=== PATIENT | female | born 1995 | race Caucasian/White ===

== ENCOUNTER 2019-02-27 16:08 | Inpatient (IN) ==
[2019-02-27] MEDS ORDERED: NICOTINE POLACRILEX 2 MG GUM MT PRN (16:20)
[2019-02-27] MEDS ORDERED: NICOTINE 21 MG/24 HR TDSY TD STA (16:20)
[2019-02-27 16:41] LABS: Pregnancy Test, Urine Negative (Negative)
[2019-02-27 16:43] LABS: Appearance Urine Cloudy (Clear); Bacteria Urine Automated 1+ (Negative); Bilirubin Urine Negative (Negative); Blood Urine Negative (Negative); Color Urine Yellow; Epithelial Cell Urine Auto >30 /lpf (0-5); Glucose Urine UA Negative (Negative); Ketones Urine Trace (Negative); Leukocyte Esterase Urine 3+ (Negative); Nitrite Urine Negative (Negative); Protein Urine Negative (Negative); RBC Urine Automated 0-4 /hpf (0-4); Specific Gravity Urine 1.021 (1.000-1.030); Urobilinogen Urine Negative (Negative); pH Urine 5.5 (4.5-7.5)
[2019-02-27 17:02] LABS: Amphetamines+Metham, Urine Neg (Neg); Barbiturates, Urine Neg (Neg); Benzodiazepine, Urine Neg (Neg); Cocaine, Urine Neg (Neg); MDMA (Ecstacy), Urine Neg (Neg); Methadone, Urine Neg (Neg); Opiate, Urine Neg (Neg); Phencyclidine, Urine Neg (Neg)
[2019-02-27 17:07] LABS: Basophils # (auto) 0.02 K/uL (0-0.2); Basophils % (auto) 0.2 %; Eosinophils # (auto) 0.07 K/uL (0-0.5); Eosinophils % (auto) 0.8 %; Hemoglobin 15.6 g/dL (12.0-16.0); Immature Granulocytes # (auto) 0.01 K/uL (0.00-0.02); Immature Granulocytes % (auto) 0.1 %; Lymphocytes # (auto) 2.46 K/uL (1.2-3.4); Lymphocytes % (auto) 29.6 %; Mean Corpuscular Hgb Conc 34.7 g/dL (32-36); Mean Corpuscular Volume 93.6 fL (80-100); Monocytes # (auto) 0.83 K/uL (0.11-0.59); Neutrophils # (auto) 4.93 K/uL (1.4-6.5); Neutrophils % (auto) 59.3 %; Platelet Count 218 K/uL (130-400); RDW Coefficient of Variation 12.2 % (11.5-14.5); RDW Standard Deviation 41.4 fL (36.4-46.3); Red Blood Count 4.81 M/uL (4.2-5.4); White Blood Count 8.32 K/uL (4.8-10.8)
[2019-02-27] MEDS ORDERED: NITROFURANTOIN MONOHYDRATE 100 MG CAP PO STA (17:09)
[2019-02-27] MEDS ORDERED: FLUCONAZOLE SUSP 100 MG/10 ML UDP PO STA (17:21)
[2019-02-27 17:26] LABS: BUN Creatinine Ratio 14.7 (10-20); Calcium 8.9 mg/dl (8.5-10.1); Creatinine Clr Calc Pharmacy 108.1 ml/min; Est GFR (African American) 131.1; Est GFR (Non-African American) 113.1; Potassium 3.6 mmol/L (3.5-5.1)
[2019-02-27] MEDS ORDERED: FLUCONAZOLE 50 MG TAB PO STA (17:26)
[2019-02-27 17:37] LABS: Albumin Globulin Ratio 1.1 (0.9-2); Bilirubin,Total 0.5 mg/dl (0.2-1); Globulin 3.8 gm/dl (2.5-4.0); Total Protein 7.8 gm/dl (6.4-8.2)
[2019-02-27] MEDS ORDERED: FLUCONAZOLE SUSP 40 MG/ML 35 ML PO ONE (17:45)
[2019-02-27 17:47] LABS: Salicylate < 1.7 mg/dl (2.8-20)
[2019-02-27 17:48] LABS: Acetaminophen < 2 ug/ml (10-30)
[2019-02-27] MEDS ORDERED: cloNIDine HCl 0.1 MG TAB PO ONE (17:48)
[2019-02-27] MEDS ORDERED: POTASSIUM CHLORIDE 20 MEQ TABCR PO STA (17:48)
--- NOTE | 2019-02-27 17:48 | Emergency Department Note ---
Entered by Gladis Rossi acting as a scribe for Arsalan Dalal MD History of Present Illness General Chief complaint: Mental Health Evaluation Stated complaint: 302, BROUGHT IN BY POLICE Time Seen by Provider: 02/27/19 16:15 Source: patient and other (mental health correctional counselor/case manager) History of Present Illness Onset (ago): hour(s) (this morning) Location: head (suicidal ideations) Pain Consistency: + other (episode) Relieved By: + none Associated symptoms: + denies other symptoms and + other (suicidal ideations with a plan) The patient is a 24 year old F who presents to the Emergency Room with complaints of an episode of suicidal ideations that occurred this morning. The majority of the HPI was provided by the mental health correctional counselor/case manager. She states t hat the patient currently lives at home with her mother. She notes that the patient was on the phone with her mother and was saying that she was thinking of ways to kill herself. She adds that the patient stated that she was going to stab herself in the stomach. The correctional counselor/case manager notes that the patient then hang up the phone call with her mother. The correctional counselor/case manager states that the mother tried to call the patient back but called the neighbors to check up on the patient when the patient did not milk pickup driver the phone. She notes that the neighbors could not reach the patient so the patients mother called the fur trapper. The correctional counselor/case manager states that the patient was admitted to the [facility] last month on a 302 warrant. The patient notes that she took all of her medication correctly today. The patient adds that she ate tonight. She denies drinking alcohol and using drugs. She also denies any other symptoms. Home Medications Home Medications Medication Instructions Recorded Confirmed Type citalopram 20 mg PO QAM 02/27/19 02/27/19 History clonidine HCl 0.05 mg PO AMHS 02/27/19 02/27/19 History Allergies Allergy/AdvReac Type Severity Reaction Status Date / Time No Known Allergies Allergy Verified 02/27/19 16:37 Past Med/Surg History Medical History Borderline personality disorder (Chronic) Cannabis abuse (Chronic) Nicotine dependence, cigarettes, uncomplicated (Chronic) Self-inflicted laceration of wrist Family History Other No significant family history Social History Preferred Language: Russian Communication Ability: Effective Crematory Operator Required: No Beliefs That Will Affect Care: None Feels Safe at Home: Yes Smoking Status: Current every day smoker Tobacco Type: cigarettes Review of Systems See HPI for pertinent positives & negatives. and A total of 10 systems reviewed and were otherwise negative Physical Exam Vital Signs Vital Signs - 24 hr 02/27/19 16:10 02/27/19 19:47 02/27/19 20:31 Temperature 36.8 C 37.1 C Temperature Source Oral Oral Sepsis Recent Fever Within 48 Hours No Sepsis Action Taken by Nursing No Action Required Pulse Rate 55 L Pulse Rate [Left Finger] 56 L 56 L Pulse Rhythm Regular Pulse Strength Normal Respiratory Rate 20 18 16 Respiratory Effort / Characteristics Non-Labored Spontaneous Non-Labored Non-Labored Respiratory Depth Normal Normal Normal Respiratory Pattern Regular Regular Blood Pressure 123/85 Blood Pressure [Left Arm] 116/65 116/65 Blood Pressure Mean 97 Blood Pressure Mean [Left Arm] 82 82 Blood Pressure Position [Left Arm] Sitting Pulse Oximetry 99 98 98 Oxygen Delivery Method Room Air Room Air Room Air GENERAL: Awake, alert, well-appearing, in no acute distress HENT: Normocephalic, atraumatic. Oropharynx unremarkable. EYES: Normal conjunctiva. Sclera non-icteric. NECK: Supple. No nuchal rigidity. FROM. No JVD. RESPIRATORY: Clear to auscultation. CARDIAC: Regular rate, normal rhythm. Extremities warm and well perfused. Pulses equal. ABDOMEN: Soft, non-distended. No tenderness to palpation. No rebound or guarding. No masses. RECTAL: Deferred. MUSCULOSKELETAL: Chest examination reveals no tenderness. The back is symm etrical on inspection without obvious abnormality. There is no CVA tenderness to palpation. No joint edema. LOWER EXTREMITIES: Calves are equal size bilaterally and non-tender. No edema. No discoloration. NEURO: Normal sensorium. No sensory or motor deficits noted. SKIN: No rash or jaundice noted. Course 1614: The patient was evaluated in room A7. A complete history and physical exam was performed. 1829: The patient has been medically cleared and is being referred to [facility]. 1944: The patient has been admitted to [facility]. I reviewed the patient's case with Dr. So Gonzalez. She will evaluate the patient for further management. Consultations Consultation #1: The patient has been admitted to [facility]. I reviewed the patient's case with Dr. So Gonzalez. She will evaluate the patient for further management. Time: 19:45 Administered Medications Clonidine HCl (Catapres) 0.05 mg PO BID PRAVEEN Stop: 03/29/19 20:59 Last Admin: 02/27/19 21:41 Dose: 0.05 mg Documented by: [id number] Miscellaneous (Remove Nicoderm Patch) 1 ea N/A HS PRAVEEN Stop: 03/29/19 20:59 Last Admin: 02/27/19 21:42 Dose: Not Given Documented by: [id number] Nicotine Polacrilex (Nicorette 2mg) 1 piece MT PRN PRN PRN Reason: Agitation Stop: 03/29/19 16:19 Last Admin: 02/27/19 17:41 Dose: 1 piece Documented by: [id number] Discontinued Medications Clonidine HCl (Catapres) 0.05 mg PO HS ONE Stop: 02/27/19 17:49 Last Admin: 02/27/19 21:10 Dose: Not Given Documented by: [id number] Fluconazole (Difulcan) 150 mg PO NOW ONE Stop: 02/27/19 17:46 Last Admin: 02/27/19 17:41 Dose: 150 mg Documented by: [id number] Nicotine (Nicoderm Cq) 21 mg TD NOW STA Stop: 02/27/19 16:21 Last Admin: 02/27/19 21:10 Dose: Not Given Documented by: [id number] Nitrofurantoin Macrocrystals (Macrobid) 100 mg PO NOW STA Stop: 02/27/19 17:10 Last Admin: 02/27/19 17:41 Dose: 100 mg Documented by: [id number] Potassium Chloride (Klor-Con M20) 40 meq PO NOW STA Stop: 02/27/19 17:49 Last Admin: 02/27/19 17:58 Dose: 40 meq Documented by: [id number] Medical Decision Making Differential Diagnosis Differential diagnosis includes: mood disorder, infection, hypoglycemia, electrolyte abnormalities, cardiac sources, intracerebral event, toxicologic, neurologic, as well as others were entertained. Medical Records Attestation: I reviewed the patient's medical records. Home Medications Current Medication List: was personally reviewed by me Laboratory Data Attestation: I reviewed the patient's lab results. Result diagrams: 02/27/19 16:53 02/27/19 16:53 Lab Results 02/27/19 02/27/1902/27/19 Range/Units 16:10 16:10 16:10 WBC (4.8-10.8) K/uL RBC (4.2-5.4) M/uL Hgb (12.0-16.0) g/dL Hct (37-47) % MCV (80-100) fL MCH (25-34) pg MCHC (32-36) g/dL RDW Std Deviation (36.4-46.3) fL RDW Coeff of Gui (11.5-14.5) % Plt Count (130-400) K/uL MPV (7.4-10.4) fL Immature Gran % (Auto) % Neut % (Auto) % Lymph % (Auto) % [place] % (Auto) % Eos % (Auto) % Baso % (Auto) % Immature Gran # (Auto) (0.00-0.02) K/uL Neut # (Auto) (1.4-6.5) K/uL Lymph # (Auto) (1.2-3.4) K/uL [place] # (Auto) (0.11-0.59) K/uL Eos # (Auto) (0-0.5) K/uL Baso # (Auto) (0-0.2) K/uL Sodium (136-145) mmol/L Potassium (3.5-5.1) mmol/L Chloride (98-107) mmol/L Carbon Dioxide (21-32) mmol/L Anion Gap (3-11) BUN (7-18) mg/dl Creatinine (0.6-1.2) mg/dl Est Cr Clr Drug Dosing ml/min Est GFR ( Amer) Est GFR (Non-Af Amer) BUN/Creatinine Ratio (10-20) Glucose (70-99) mg/dl Calcium (8.5-10.1) mg/dl Total Bilirubin (0.2-1) mg/dl AST (15-37) U/L ALT (12-78) U/L Alkaline Phosphatase (45-117) U/L Total Protein (6.4-8.2) gm/dl Albumin (3.4-5.0) gm/dl Globulin (2.5-4.0) gm/dl Albumin/Globulin Ratio (0.9-2) TSH (0.300-4.500) uIu/ml Urine Color Yellow Urine Appearance Cloudy A (Clear) Urine pH 5.5 (4.5-7.5) Ur Specific [place] 1.021 (1.000-1.030) Urine Protein Negative (Negative) Urine Glucose (UA) Negative (Negative) Urine Ketones Trace H (Negative) Urine Blood Negative (Negative) Urine Nitrite Negative (Negative) Urine Bilirubin Negative (Negative) Urine Urobilinogen Negative (Negative) Ur Leukocyte Esterase 3+ H (Negative) Urine WBC (Auto) 10-30 H (0-5) /hpf Urine RBC (Auto) 0-4 (0-4) /hpf U Hyaline Cast (Auto) 1-5 (0-5) /lpf U Epithel Cells (Auto) >30 H (0-5) /lpf Urine Bacteria (Auto) 1+ H (Negative) Urine Test Negative (Negative) Salicylates (2.8-20) mg/dl Urine Opiates Screen Neg (Neg) Ur Methadone, Qual Neg (Neg) Acetaminophen (10-30) ug/ml Urine Barbiturates Neg (Neg) Ur Phencyclidine (PCP) Neg (Neg) U Amphetamin/Meth Scrn Neg (Neg) MDMA (Ecstasy) Screen Neg (Neg) U Benzodiazepines Scrn Neg (Neg) Ur Cocaine Metabolite Neg (Neg) U Marijuana (THC) Screen Pos H (Neg) Ethyl Alcohol mg/dL (0-3) mg/dl 02/27/19 02/27/19 02/27/19 Range/Units 16:53 16:53 16:53 WBC 8.32 (4.8-10.8) K/uL RBC 4.81 (4.2-5.4) M/uL Hgb 15.6 (12.0-16.0) g/dL Hct 45.0 (37-47) % MCV 93.6 (80-100) fL MCH 32.4 (25-34) pg MCHC 34.7 (32-36) g/dL RDW Std Deviation 41.4 (36.4-46.3) fL RDW Coeff of Gui 12.2 (11.5-14.5) % Plt Count 218 (130-400) K/uL MPV 10.0 (7.4-10.4) fL Immature Gran % (Auto) 0.1 % Neut % (Auto) 59.3 % Lymph % (Auto) 29.6 % [place] % (Auto) 10.0 % Eos % (Auto) 0.8 % Baso % (Auto) 0.2 % Immature Gran # (Auto) 0.01 (0.00-0.02) K/uL Neut # (Auto) 4.93 (1.4-6.5) K/uL Lymph # (Auto) 2.46 (1.2-3.4) K/uL [place] # (Auto) 0.83 H (0.11-0.59) K/uL Eos # (Auto) 0.07 (0-0.5) K/uL Baso # (Auto) 0.02 (0-0.2) K/uL Sodium 139 (136-145) mmol/L Potassium 3.6 (3.5-5.1) mmol/L Chloride 105 (98-107) mmol/L Carbon Dioxide 27 (21-32) mmol/L Anion Gap 7.0 (3-11) BUN 11 (7-18) mg/dl Creatinine 0.75 (0.6-1.2) mg/dl Est Cr Clr Drug Dosing 108.1 ml/min Est GFR ( Amer) 131.1 Est GFR (Non-Af Amer) 113.1 BUN/Creatinine Ratio 14.7 (10-20) Glucose 76 (70-99) mg/dl Calcium 8.9 (8.5-10.1) mg/dl Total Bilirubin 0.5 (0.2-1) mg/dl AST 16 (15-37) U/L ALT 18 (12-78) U/L Alkaline Phosphatase 74 (45-117) U/L Total Protein 7.8 (6.4-8.2) gm/dl Albumin 4.0 (3.4-5.0) gm/dl Globulin 3.8 (2.5-4.0) gm/dl Albumin/Globulin Ratio 1.1 (0.9-2) TSH 2.200 (0.300-4.500) uIu/ml Urine Color Urine Appearance (Clear) Urine pH (4.5-7.5) Ur Specific [place] (1.000-1.030) Urine Protein (Negative) Urine Glucose (UA) (Negative) Urine Ketones (Negative) Urine Blood (Negative) Urine Nitrite (Negative) Urine Bilirubin (Negative) Urine Urobilinogen (Negative) Ur Leukocyte Esterase (Negative) Urine WBC (Auto) (0-5) /hpf Urine RBC (Auto) (0-4) /hpf U Hyaline Cast (Auto) (0-5) /lpf U Epithel Cells (Auto) (0-5) /lpf Urine Bacteria (Auto) (Negative) Urine Test (Negative) Salicylates < 1.7 L (2.8-20) mg/dl Urine Opiates Screen (Neg) Ur Methadone, Qual (Neg) Acetaminophen < 2 L (10-30) ug/ml Urine Barbiturates (Neg) Ur Phencyclidine (PCP) (Neg) U Amphetamin/Meth Scrn (Neg) MDMA (Ecstasy) Screen (Neg) U Benzodiazepines Scrn (Neg) Ur Cocaine Metabolite (Neg) U Marijuana (THC) Screen (Neg) Ethyl Alcohol mg/dL (0-3) mg/dl 02/27/19 Range/Units 16:53 WBC (4.8-10.8) K/uL RBC (4.2-5.4) M/uL Hgb (12.0-16.0) g/dL Hct (37-47) % MCV (80-100) fL MCH (25-34) pg MCHC (32-36) g/dL RDW Std Deviation (36.4-46.3) fL RDW Coeff of Gui (11.5-14.5) % Plt Count (130-400) K/uL MPV (7.4-10.4) fL Immature Gran % (Auto) % Neut % (Auto) % Lymph % (Auto) % [place] % (Auto) % Eos % (Auto) % Baso % (Auto) % Immature Gran # (Auto) (0.00-0.02) K/uL Neut # (Auto) (1.4-6.5) K/uL Lymph # (Auto) (1.2-3.4) K/uL [place] # (Auto) (0.11-0.59) K/uL Eos # (Auto) (0-0.5) K/uL Baso # (Auto) (0-0.2) K/uL Sodium (136-145) mmol/L Potassium (3.5-5.1) mmol/L Chloride (98-107) mmol/L Carbon Dioxide (21-32) mmol/L Anion Gap (3-11) BUN (7-18) mg/dl Creatinine (0.6-1.2) mg/dl Est Cr Clr Drug Dosing ml/min Est GFR ( Amer) Est GFR (Non-Af Amer) BUN/Creatinine Ratio (10-20) Glucose (70-99) mg/dl Calcium (8.5-10.1) mg/dl Total Bilirubin (0.2-1) mg/dl AST (15-37) U/L ALT (12-78) U/L Alkaline Phosphatase (45-117) U/L Total Protein (6.4-8.2) gm/dl Albumin (3.4-5.0) gm/dl Globulin (2.5-4.0) gm/dl Albumin/Globulin Ratio (0.9-2) TSH (0.300-4.500) uIu/ml Urine Color Urine Appearance (Clear) Urine pH (4.5-7.5) Ur Specific [place] (1.000-1.030) Urine Protein (Negative) Urine Glucose (UA) (Negative) Urine Ketones (Negative) Urine Blood (Negative) Urine Nitrite (Negative) Urine Bilirubin (Negative) Urine Urobilinogen (Negative) Ur Leukocyte Esterase (Negative) Urine WBC (Auto) (0-5) /hpf Urine RBC (Auto) (0-4) /hpf U Hyaline Cast (Auto) (0-5) /lpf U Epithel Cells (Auto) (0-5) /lpf Urine Bacteria (Auto) (Negative) Urine Test (Negative) Salicylates (2.8-20) mg/dl Urine Opiates Screen (Neg) Ur Methadone, Qual (Neg) Acetaminophen (10-30) ug/ml Urine Barbiturates (Neg) Ur Phencyclidine (PCP) (Neg) U Amphetamin/Meth Scrn (Neg) MDMA (Ecstasy) Screen (Neg) U Benzodiazepines Scrn (Neg) Ur Cocaine Metabolite (Neg) U Marijuana (THC) Screen (Neg) Ethyl Alcohol mg/dL < 3.0 (0-3) mg/dl Blood Pressure Blood Pressure Findings: Normal blood pressure Blood Pressure Disposition: did not require urgent referral MDM Narrative This is a 24-year-old female who presents emergency department over concerns that she is going to hurt her self. Patient arrives here under a 302 warrant. She was medically cleared by me. She does have what appears to be a urinary tra ct infection and the patient reports that she normally takes Diflucan to avoid yeast infections. For this reason the patient was given both Macrobid and Diflucan. She should be continued on Macrobid twice a day for 1 week and psychiatric case management. Diflucan every 3 days. She was medically cleared by me and independently evaluated by Impression & Plan Mood disorder, UTI (urinary tract infection) Discharge Plan Visit Data *Final* Discharge Date/Time: 02/27/19 21:17 Chief Complaint: Mental Health Evaluation Stated Complaint: 302, BROUGHT IN BY POLICE ED Provider: Arsalan Dalal Discharge Problem: Mood disorder, UTI (urinary tract infection) Patient Disposition: Admitted As Inpatient Discharge Instructions Interventions: ED Discharge Assessment Last Done: 02/27/19 19:55 Discharge Problem: UTI (urinary tract infection) Qualifiers: Urinary tract infection type: site unspecified Hematuria presence: without h ematuria Qualified Code(s): N39.0 - Urinary tract infection, site not specified The scribe's documentation has been prepared under my direction and personally reviewed by me in its entirety. I confirm that the note above accurately reflects all work, treatment, procedures, and medical decision making performed by me.
[2019-02-27] MEDS ORDERED: MAGNESIUM HYDROXIDE SUSP 30 ML UDC PO PRN (20:24)
[2019-02-27] MEDS ORDERED: ALUMINUM/MAGNESIUM SUSP 30 ML UDC PO PRN (20:24)
[2019-02-27] MEDS ORDERED: BISMUTH SUBSALICYLATE PER ML OMNICELL CHARGE PO PRN (20:24)
[2019-02-27] MEDS ORDERED: SODIUM CHLORIDE 0.65% NA SOLN 45 ML (OCEAN) PRN (20:24)
[2019-02-27] MEDS: cloNIDine HCl 0.1 MG TAB PO SCH (21:41)
[2019-02-28] MEDS ORDERED: NITROFURANTOIN MONOHYDRATE 100 MG CAP PO SCH (09:00)
[2019-02-28] MEDS ORDERED: FLUCONAZOLE 50 MG TAB PO SCH (09:00)
--- NOTE | 2019-02-28 09:04 | History & Physical ---
Date of Service February 28, 2019 Impression / Recommendations Impression 24-year-old female known to our unit from a previous admission in 03/2018. Patient is admitted voluntarily for inpatient psychiatric treatment due to worsening depression and reported suicidality. These concerns are chronic for the patient, as she has had many inpatient hospitalizations for similar presentation. The patient states at that time the statements were made there is minimal intent to follow through with reports; however, the patient states her suicidality has worsened since being admitted to the hospital. Patient clearly verbalizes an urge to end her life after discharge at the time of our convers ation. Majority of the patient presenting symptoms are likely related to impulsivity and poor mood regulation related to her diagnosis of borderline personality disorder. Anxiety and depressive symptoms are heightened at this time, and we therefore discussed medication adjustments that may be beneficial in targeting these concerns. Given initial response to initiation of citalopram, we discussed further titration which patient is agreeable with. We will plan to provide patient with an additional 10 mg dose this afternoon, then increasing dose to 40 mg starting tomorrow morning. Risks and benefits of the medication change were reviewed with the patient who verbalized understanding and is agreeable with treatment plan outlined above. Given hypotension, will plan to hold scheduled dosing of clonidine and monitor blood pressures. It is unclear at this time if this medication will be necessary to continue during this hospitalization. Also reviewed urinalysis which shows a likely con taminated sample. Will discontinue antibiotic treatment at this time as patient is asymptomatic. Urine culture is pending, and if results confirm a urinary tract infection we will plan to resume treatment. At this time inpatient psychiatric treatment is medically necessary given the patient's extensive psychiatric history, history of multiple previous suicide attempts, chronic suicidality, and verbalization but suicidal thoughts have worsened since admission. Patient is at high risk of harm to self if discharged prematurely. Dr. So Gonzalez was directly involved in review and discussion of the patient's case and participated in medical decision making regarding treatment recommendations. (1) Suicidal ideation: 02/28 - Admitted to a locked inpatient behavioral health unit, on q15 minute safety checks - Encourage medication initiation/adjustments as indicated - Encourage participation in group and recreational therapies - Gather collateral information from outpatient providers - Suggest family meeting to involve outpatient supports in safety planning - Arrange appropriate aftercare (2) Depression: 02/28 - Titrate citalopram to 30mg total today by providing an additional 10mg dose - Pt will receive 40mg qAM beginning tomorrow morning - EKG was ordered for tomorrow morning, but accidentally completed today. QTc - wnl; repeat EKG ordered for 03/02/19 once she reaches 40mg daily dosage. - Will hold clonidine during admission and observe blood pressure; low on admission and may not be necessary for her to continue this medication Active/Remission status: currently active Depression Type: major depressive disorder Major depression episode severity: severe Major depression recurrence: recurrent Psychotic features: without psychotic features Qualified Code(s): F33.2 - Major depressive disorder, recurrent severe without psychotic features (3) Borderline personality disorder: 02/28 - Assist patient in development of coping strategies to manage impulsivity and better regulate emotions - Set healthy boundaries and limits during admission; continue education on diagnosis (4) Self-injurious behavior: 02/28 - Assist patient with development of healthy and effective coping strategies - Encourage patient to communicate feelings with staff regarding any self- harm urges (5) Alcohol use disorder: 02/28 -Brief intervention was offered and accepted - though patient does not view her alcohol use as a problem Intervention was greater than 5 min in length. Brief interventions include: 1. Assess Readiness to Quit, 2. Advise: Help Patient to Reduce or Abstain from Alcohol, 3. Agree: Set Specific, Feasible Goals, 4. Assist: Anticipate barriers, Problem-Solving Solutions. Social work to 5. Arrange: Referrals to appropriate treatment. Summary of intervention: The patient is in precontemplation stage with regards to transtheoretical model of change. The patient is advised to decrease alcohol consumption due to depressant effects and risk of interactions with prescription medications. The patient was advised of recommendations for abstinence from alcohol and other abusable substances and to attend substance abuse treatment at discharge, and will be provided with recovery materials to continue to education self on how to cope with their condition without drinking. (6) Cannabis abuse: 02/28 - Continue to educate patient on concerns related to marijuana use in conjunction with psychiatric treatment - Encourage the patient abstain from marijuana usage after discharge (7) Nicotine dependence, cigarettes, uncomplicated: 02/28 - Patient is provided with nicotine gum during admission, recommendation to reduce and ultimately abstaining from tobacco use will not be the primary focus of admission, but should be encouraged Inventory Assets Strengths: Long history with current outpatient providers, willingness to participate in treatment Needs: Appropriate and effective medication adjustments, development of healthy and effective coping strategies, abstaining from substance use Risk Factors Assessment Male: No : Yes Do You Have Access To A Gun?: No Health Problems: No Mental Health Diagnoses: Yes Substance Use Disorders: Yes Previous Attempt: Yes Previous Attempt; Highly Lethal: Yes Previous Attempt; Planned: Yes Family History of Suicide: No Previous Psychiatric Hospitalization: Yes Hopelessness: Yes Smoker: Yes Protective Factors Assessment Spiritism Beliefs: No : No Responsible for Young Children: No Employed: Yes Stable Relationships: No Supportive Family: Yes (Though there is also significant tension at times) Good Rapport with Provider: Yes Psychiatric History Identifying Data KARSON MANNING is a 24-year-old F who currently lives in [place] with her parents and sister with special needs. Pt has a history of borderline personality disorder, depression, and anxiety. Pt was brought to the ED by police on a 302 warrant, with petitioning statement completed by her mother. Pt was admitted on 02/27/19 19:23 on a 201 voluntary commitment for worsening mood and suicidal statements reported. Information is gathered from previous hospital documentation and the patient herself, the combination of which is considered to be reliable. Chief Complaint "My mom 302'd me in here." History of Present Illness Karson Manning is a 24-year-old female admitted voluntarily for inpatient psychiatric treatment due to reports of worsening mood and confessing suicidal ideation to her mother prior to admission. Patient was last treated on our unit in March 2018, she admits that she was discharged from the [facility] 1 month ago. Patient shares with this provider that she was "302'd" by her mother, and she is extremely upset about this. Patient did end up signing in voluntarily for treatment after she was brought to the emergency department by police. Patient reports that she had an appointment prior to admission in which, "the doctor threatened to stop my medications if I did not stop drinking so heavily." The patient states this was upsetting to her, so she decided to call her mother. Patient admits that she reported SI on the phone, and then had taken a nap. The patient states she was sleeping when her mother attempted to reach out to her again. The patient did not text back the patient's mother was reportedly concerned and eventually a 302 warrant was completed to check on the patient's safety, and bring her to the ED for evaluation. The patient states that at the time of their phone conversation the patient was not actively planning an attempt to end her life however "the night before I was thinking about it." The patient states to this provider "it failed twice, if I want to do it again it has to be something that I think will work - like hanging." When asked if the patient's suicidality was ongoing on admission, she states "the suicidal thoughts are way higher since she [mom] did this to me, now just makes me want to go home and end my life even more." Patient states that her suicidality began in her teens, along with urges to self-harm by cutting. Suicidal thoughts are chronic; however, worsened during periods of intense stress. The patient does admit that she had a "hard semester". She also reports stressors of: managing finances, attempting to find a second job, and anxiety in the context of social interactions. Patient endorses depressive symptoms of low energy, restless sleep, decreased motivation, hopelessness, and worthlessness. The patient states there were several classes that she had skipped this last semester due to depressive symptoms. Patient states that anxiety has been relatively high recently and she does endorse episodes of anxiety attacks, which are characterized by emotional crying, "shutting down", shortness of breath, and urges to harm herself. Patient states her last episode of self-harm was a month ago. Patient was admitted to the [facility] in the last month for similar concerns. She states that during this admission when he discontinued sertraline, which she had been on for several years. At that time they had initiated citalopram. Patient states there was concern for elevated blood pressure, which explains the addition of clonidine according to her awareness. Patient does feel that the medication changes were helpful initially; however, has found these effects to be reduced recently. Patient does admit to chronic alcohol use, consuming 8 or more drinks on average about 4-5 days/week. Patient states that she does not believe she has ever been through alcohol withdrawal previously. She also regularly uses marijuana, and smokes 4-5 cigarettes/day. Pt denies HI, A/V hallucinations, paranoia, melvina/hypomania, other symptoms more suggestive of a bipolar presentation, OCD, PTSD, eating disorder, and other specific psychiatric symptoms. Past Psychiatric History Previous Psych History: Patient reports diagnoses of borderline personality disorder, depression, and anxiety. She is currently seen by Dr. Escamilla at [facility] and by [facility] for therapy. She reports several previous inpatient psychiatric admissions at [facility], the [facility], an RT[facility] in [facility] in 03/2018 and the [facility] 1 month prior to this admission. Patient reports although previous suicide attempt by overdose, and a history of self-injurious behavior by cutting. Current Psychiatric Diagnosis: MDD, BPD, Anxiety Previous Psych Admissions: A total of at least 10 previous psychiatric admissions is reported. Do You Have Access To A Gun?: No History of Previous Suicide Attempt: Yes Describe Attempts in the Past: OD on zoloft and ibuprofen mixed with ETOH Past Medication Trials: Per patient reports: 1. Zoloft - took for several years 2. Effexor - ineffective 3. Wellbutriin 4. Seroquel - sedation Past Head Trauma/Neuro History History of Concussion/Seizure: No Allergies Allergy/AdvReac Type Severity Reaction Status Date / Time No Known Allergies Allergy Verified 02/27/19 16:37 Home Medications Home Medications Medication Instructions Recorded Confirmed Type citalopram 20 mg PO QAM 02/27/19 02/27/19 History clonidine HCl 0.05 mg PO AMHS 02/27/19 02/27/19 History Family History Family History of: Doesn't Know Family Mental Health History Comment: Patient reports father's behaviors suggestive of depression and PTSD; mother has historically displayed symptoms of anxiety. Parents have not had any formal psychiatric diagnosis or treatment per patient. Alcohol History Hx of Alcohol Use Over the Past 12 Months: Yes ("3-4X per week, 4-6 drinks (four lokos)") AUDIT Total Score: 18 Smoking Use Have You Smoked or Used Tobacco Products in the Last 30 Days: Yes tobacco type: cigarettes Smoking Status: Current every day smoker Smoking packs per day: 0.25 Substance History Hx of Prescription Med Misuse Over the Past 12 Months: No Hx of Over the Counter Med Misuse Over the Past 12 Months: No Hx of Inhalent Misuse Over the Past 12 Months: No Hx of Organic Substance Use Over the Past 12 Months: Yes ("marijuana daily") Hx of Illegal Substances/Street Drug Use Over Past 12 Months: No Problems as a Result of Past Substance Use: None Identified Personal History Living Arrangements: Home (With parents and sister) Highest Grade Completed: Some College (Enrolled at [employer] in their benja stimulation program) 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 Patient states she had "talked back to a photocopying equipment mechanic" while intoxicated. Hx Traumatic Life Events: No (But admits parents frequently "guilt trip" her in play "head games") Patient History Medical History Borderline personality disorder (Chronic) Cannabis abuse (Chronic) Nicotine dependence, cigarettes, uncomplicated (Chronic) Self-inflicted laceration of wrist Family History Other No significant family history Social History Preferred Language: Azerbaijani Communication Ability: Effective Heel Cover Softener Required: No Beliefs That Will Affect Care: None Feels Safe at Home: Yes Smoking Status: Current every day smoker Tobacco Type: cigarettes Review of Systems Review of Systems: Constitutional: denied Cardiovascular: denied Respiratory: denied Gastrointestinal: denied Neurological: denied Musculoskeletal: reports right hip pain; injury from previous accident Psychiatric: denies symptoms other than stated above Total of at least 10 systems reviewed, pertinent positives as above and in HPI. Physical Exam Psychiatric: Orientation: alert, oriented x 3 and cooperative Apperance: appropriately dressed, + disheveled (As patient was awoken from sleep) and appeared stated age Overweight, female observed while laying in bed in no acute distress. Pt's shoulder-length hair is unkempt due to awakening from sleep. Pt's forearms are heavily scarred with well-healed lacerations likely caused by self-harm behavior. Eye Contact: + fair eye contact Motor Behavior: no abnormal motor movements (Observed while laying in bed) Speech: normal rate/rhythm/volume of speech (Predominantly monotone) Affect: + blunted affect, + constricted affect and mood congruent with affect Mood: + depressed mood "I'm just so angry, my suicidal thoughts are way higher since she did this to me." Thought Process: goal directed thought process (Goal at present being to end her life) and clear/coherent thought process Thought Content: + preoccupation (With suicidality), + cognitive distortions, reality based without delusions, + hopelessness and + worthlessness Suicidal Thoughts: + reports suicidal thoughts, + reports suicidal plan and + reports suicidal intent Homicidal Thoughts: denies homicidal thoughts Hallucinations: no auditory hallucinations and no visual hallucinations Cognition: recent memory grossly intact, remote memory grossly intact, attention grossly intact and language grossly intact Estimated Intelligence: consistent with education level Insight: + impaired insight Judgement: + impaired judgement Vital Signs (Past 24 Hours): Last Vital Signs Temp 36.8 C 02/28/19 07:16 Pulse 54 L 02/28/19 07:18 Resp 18 02/28/19 07:16 BP 99/63 L 02/28/19 07:18 Pulse Ox 98 02/27/19 20:31 Exam Statement: A physical exam was performed in the ER prior to admission to the unit by Dr. Arsalan Dalal MD. I accept that physical as correct/medical clearance for the inpatient physical exam. Results & Data Laboratory Results Laboratory Results - last 24 hr 02/27/19 02/27/19 02/27/19 16:10 16:10 16:10 WBC RBC Hgb Hct MCV MCH MCHC RDW Std Deviation RDW Coeff of Gui Plt Count MPV Immature Gran % (Auto) Neut % (Auto) Lymph % (Auto) [place] % (Auto) Eos % (Auto) Baso % (Auto) Immature Gran # (Auto) Neut # (Auto) Lymph # (Auto) [place] # (Auto) Eos # (Auto) Baso # (Auto) Sodium Potassium Chloride Carbon Dioxide Anion Gap BUN Creatinine Est Cr Clr Drug Dosing Est GFR ( Amer) Est GFR (Non-Af Amer) BUN/Creatinine Ratio Glucose Calcium Total Bilirubin AST ALT Alkaline Phosphatase Total Protein Albumin Globulin Albumin/Globulin Ratio TSH Urine Color Yellow Urine Appearance Cloudy A Urine pH 5.5 Ur Specific [place] 1.021 Urine Protein Negative Urine Glucose (UA) Negative Urine Ketones Trace H Urine Blood Negative Urine Nitrite Negative Urine Bilirubin Negative Urine Urobilinogen Negative Ur Leukocyte Esterase 3+ H Urine WBC (Auto) 10-30 H Urine RBC (Auto) 0-4 U Hyaline Cast (Auto) 1-5 U Epithel Cells (Auto) >30 H Urine Bacteria (Auto) 1+ H Urine Test Negative Salicylates Urine Opiates Screen Neg Ur Methadone, Qual Neg Acetaminophen Urine Barbiturates Neg Ur Phencyclidine (PCP) Neg U Amphetamin/Meth Scrn Neg MDMA (Ecstasy) Screen Neg U Benzodiazepines Scrn Neg Ur Cocaine Metabolite Neg U Marijuana (THC) Screen Pos H Ethyl Alcohol mg/dL 02/27/19 02/27/19 02/27/19 16:53 16:53 16:53 WBC 8.32 RBC 4.81 Hgb 15.6 Hct 45.0 MCV 93.6 MCH 32.4 MCHC 34.7 RDW Std Deviation 41.4 RDW Coeff of Gui 12.2 Plt Count 218 MPV 10.0 Immature Gran % (Auto) 0.1 Neut % (Auto) 59.3 Lymph % (Auto) 29.6 [place] % (Auto) 10.0 Eos % (Auto) 0.8 Baso % (Auto) 0.2 Immature Gran # (Auto) 0.01 Neut # (Auto) 4.93 Lymph # (Auto) 2.46 [place] # (Auto) 0.83 H Eos # (Auto) 0.07 Baso # (Auto) 0.02 Sodium 139 Potassium 3.6 Chloride 105 Carbon Dioxide 27 Anion Gap 7.0 BUN 11 Creatinine 0.75 Est Cr Clr Drug Dosing 108.1 Est GFR ( Amer) 131.1 Est GFR (Non-Af Amer) 113.1 BUN/Creatinine Ratio 14.7 Glucose 76 Calcium 8.9 Total Bilirubin 0.5 AST 16 ALT 18 Alkaline Phosphatase 74 Total Protein 7.8 Albumin 4.0 Globulin 3.8 Albumin/Globulin Ratio 1.1 TSH 2.200 Urine Color Urine Appearance Urine pH Ur Specific [place] Urine Protein Urine Glucose (UA) Urine Ketones Urine Blood Urine Nitrite Urine Bilirubin Urine Urobilinogen Ur Leukocyte Esterase Urine WBC (Auto) Urine RBC (Auto) U Hyaline Cast (Auto) U Epithel Cells (Auto) Urine Bacteria (Auto) Urine Test Salicylates < 1.7 L Urine Opiates Screen Ur Methadone, Qual Acetaminophen < 2 L Urine Barbiturates Ur Phencyclidine (PCP) U Amphetamin/Meth Scrn MDMA (Ecstasy) Screen U Benzodiazepines Scrn Ur Cocaine Metabolite U Marijuana (THC) Screen Ethyl Alcohol mg/dL 02/27/19 16:53 WBC RBC Hgb Hct MCV MCH MCHC RDW Std Deviation RDW Coeff of Gui Plt Count MPV Immature Gran % (Auto) Neut % (Auto) Lymph % (Auto) [place] % (Auto) Eos % (Auto) Baso % (Auto) Immature Gran # (Auto) Neut # (Auto) Lymph # (Auto) [place] # (Auto) Eos # (Auto) Baso # (Auto) Sodium Potassium Chloride Carbon Dioxide Anion Gap BUN Creatinine Est Cr Clr Drug Dosing Est GFR ( Amer) Est GFR (Non-Af Amer) BUN/Creatinine Ratio Glucose Calcium Total Bilirubin AST ALT Alkaline Phosphatase Total Protein Albumin Globulin Albumin/Globulin Ratio TSH Urine Color Urine Appearance Urine pH Ur Specific [place] Urine Protein Urine Glucose (UA) Urine Ketones Urine Blood Urine Nitrite Urine Bilirubin Urine Urobilinogen Ur Leukocyte Esterase Urine WBC (Auto) Urine RBC (Auto) U Hyaline Cast (Auto) U Epithel Cells (Auto) Urine Bacteria (Auto) Urine Test Salicylates Urine Opiates Screen Ur Methadone, Qual Acetaminophen Urine Barbiturates Ur Phencyclidine (PCP) U Amphetamin/Meth Scrn MDMA (Ecstasy) Screen U Benzodiazepines Scrn Ur Cocaine Metabolite U Marijuana (THC) Screen Ethyl Alcohol mg/dL < 3.0 Current Inpatient Medications Current Inpatient Medications: Current Inpatient Medications Acetaminophen (Tylenol) 650 mg PO Q4H PRN PRN Reason: Headache or Minor Fever Stop: 03/29/19 20:23 Al Hydrox/Mg Hydrox/Simethicone (Maalox) 30 ml PO Q4H PRN PRN Reason: GI Upset Stop: 03/29/19 20:23 Bismuth Subsalicylate (Kaopectate) 15 ml PO PRN PRN PRN Reason: Loose Stool Stop: 03/29/19 20:23 Clonidine HCl (Catapres) 0.05 mg PO BID PRAVEEN Stop: 03/29/19 20:59 Last Admin: 02/27/19 21:41 Dose: 0.05 mg Documented by: Fluconazole (Diflucan) 150 mg PO QAM PRAVEEN Stop: 03/02/19 08:59 Hydroxyzine HCl (Vistaril) 25 mg PO Q4H PRN PRN Reason: Anxiety Stop: 03/29/19 20:23 Hydroxyzine HCl (Vistaril) 50 mg PO HSZ PRN PRN Reason: Insomnia Stop: 03/29/19 20:23 Magnesium Hydroxide (Milk Of Magnesia) 30 ml PO DAILY PRN PRN Reason: Heartburn Stop: 03/29/19 20:23 Miscellaneous (Remove Nicoderm Patch) 1 ea N/A HS PRAVEEN Stop: 03/29/19 20:59 Last Admin: 02/27/19 21:42 Dose: Not Given Documented by: Nicotine Polacrilex (Nicorette 2mg) 1 piece MT UD PRN PRN Reason: Nicotine Withdrawal Stop: 03/29/19 20:48 Nitrofurantoin Macrocrystals (Macrobid) 100 mg PO BID PRAVEEN Stop: 03/04/19 21:00 Sodium Chloride ([place] Nasal) 1 - 2 sprays NA PRN PRN PRN Reason: Nasal Dryness/Congestion Stop: 03/29/19 20:23 CPT Code CPT Code Initial Hospital Care: [id number]
[2019-02-28] MEDS: cloNIDine HCl 0.1 MG TAB PO SCH (10:06)
[2019-02-28] MEDS ORDERED: CITALOPRAM 20 MG TAB PO ONE (11:41)
[2019-02-28] MEDS: NICOTINE POLACRILEX 2 MG GUM MT PRN (16:07)
[2019-03-01] MEDS: CITALOPRAM 40 MG TAB PO SCH (08:46)
[2019-03-01] MEDS: NICOTINE POLACRILEX 2 MG GUM MT PRN (11:43)
--- NOTE | 2019-03-01 14:23 | Psychiatric Progress Note ---
Date of Service March 01, 2019 Impression / Recommendations Impression Pt reports worsening mood following her family meeting this morning. Pt states she feels misunderstood and as though her parents "aren't sure what to do with me." Pt states her suicidality is ongoing, and her self-harm urges are actually higher today than on admission. She has been attempting to distract herself, but was encouraged to share with staff and request individual counseling as needed. No reported side effects from titration of citalopram to 40mg daily. EKG ordered for tomorrow morning. Pt remains at extremely high risk of harm to self given her previous psychiatric history. SI and SIB urges are ongoing, and patient is at very high risk of harm to self if she were to be discharged at this point in her stay. (1) Suicidal ideation: 02/28 - Admitted to a locked inpatient behavioral health unit, on q15 minute safety checks - Encourage medication initiation/adjustments as indicated - Encourage participation in group and recreational therapies - Gather collateral information from outpatient providers - Suggest family meeting to involve outpatient supports in safety planning - Arrange appropriate aftercare 03/01 - SI ongoing, SIB urges worsened from yesterday (2) Depression: 02/28 - Titrate citalopram to 30mg total today by providing an additional 10mg dose - Pt will receive 40mg qAM beginning tomorrow morning - EKG was ordered for tomorrow morning, but accidentally completed today. QTc - wnl; repeat EKG ordered for 03/02/19 once she reaches 40mg daily dosage. - Will hold clonidine during admission and observe blood pressure; low on admission and may not be necessary for her to continue this medication 03/01 - Continue citalopram 40mg qAM - EKG ordered for tomorrow - Continue to encourage healthy and effective coping strategies - Assist patient with ways to add structure and routine to her daily schedule (3) Borderline personality disorder: 02/28 - Assist patient in development of coping strategies to manage impulsivity and better regulate emotions - Set healthy boundaries and limits during admission; continue education on diagnosis (4) Self-injurious behavior: 02/28 - Assist patient with development of healthy and effective coping strategies - Encourage patient to communicate feelings with staff regarding any self- harm urges 03/01 - Encouraged patient to report urges to stay, continue to engage in coping strategies to distract from these urges (5) Alcohol use disorder: 02/28 -Brief intervention was offered and accepted - though patient does not view her alcohol use as a problem Intervention was greater than 5 min in length. Brief interventions include: 1. Assess Readiness to Quit, 2. Advise: Help Patient to Reduce or Abstain from Alcohol, 3. Agree: Set Specific, Feasible Goals, 4. Assist: Anticipate barriers, Problem-Solving Solutions. Social work to 5. Arrange: Referrals to appropriate treatment. Summary of intervention: The patient is in precontemplation stage with regards to transtheoretical model of change. The patient is advised to decrease alcohol consumption due to depressant effects and risk of interactions with prescription medications. The patient was advised of recommendations for abstinence from a lcohol and other abusable substances and to attend substance abuse treatment at discharge, and will be provided with recovery materials to continue to education self on how to cope with their condition without drinking. (6) Cannabis abuse: 02/28 - Continue to educate patient on concerns related to marijuana use in conjunction with psychiatric treatment - Encourage the patient abstain from marijuana usage after discharge (7) Nicotine dependence, cigarettes, uncomplicated: 02/28 - Patient is provided with nicotine gum during admission, recommendation to reduce and ultimately abstaining from tobacco use will not be the primary focus of admission, but should be encouraged Inventory Assets Strengths: Long history with current outpatient providers, willingness to participate in treatment Needs: Appropriate and effective medication adjustments, development of healthy and effective coping strategies, abstaining from substance use Risk Factors Assessment Male: No : Yes Do You Have Access To A Gun?: No Health Problems: No Mental Health Diagnoses: Yes Substance Use Disorders: Yes Previous Attempt: Yes Previous Attempt; Highly Lethal: Yes Previous Attempt; Planned: Yes Family History of Suicide: No Previous Psychiatric Hospitalization: Yes Hopelessness: Yes Smoker: Yes Protective Factors Assessment Episcopal Beliefs: No : No Responsible for Young Children: No Employed: Yes Stable Relationships: No Supportive Family: Yes (Though there is also significant tension at times) Good Rapport with Provider: Yes Interval History Identifying Information LIZET GARCIA is a 24-year-old F who currently lives in [place] with her parents and sister with special needs. Pt has a history of borderline personality disorder, depression, and anxiety. Pt was brought to the ED by police on a 302 warrant, with petitioning statement completed by her mother. Pt was admitted on 02/27/19 19:23 on a 201 voluntary commitment for worsening mood and suicidal statements reported. Chief Complaint "Honestly, today hasn't been the greatest." Review of Systems Notes Constitutional: denied Cardiovascular: denied Respiratory: denied Gastrointestinal: denied Neurological: denied Psychiatric: denies symptoms other than stated above Total of at least 10 systems reviewed, pertinent positives as above and in HPI. Sleep Information Total Hours of Sleep: 7.25 Meal Information Percent Meal Consumed - Breakfast: 0 Percent Meal Consumed - Lunch: 100 Percent Meal Consumed - Dinner: 100 Nutrition Comment: pt. asleep Subjective Subjective Patient was seen & assessed and interval progress reviewed with Treatment Team. Staff reports the patient has continued to appear flat and somber on the unit. Pt had a meeting with her mother and father this morning. Pt was seen today to assess progress since admission. Pt states she had a difficulty morning, related to the meeting being challenging. Pt states she felt her parents "don't know what to do with me, so they just push it off on someone else. They don't care." Pt is understanding of the reasons her parents may be concerned about her reports and behaviors, but struggles with feeling she is unable to communicate honestly with them. Pt states her mother suggested an RTF, which patient is not necessarily interested in. She states in the past, the RTF was helpful to create structure, and to have "people to talk to all the time." Pt was encouraged to explore ways in which these things could be implemented into her daily routine at home. Pt reports ongoing suicidality. She states "the self harm thoughts are high today." She admits she is trying to "stay around people, try not to isolate." Pt is tolerating titration of citalopram without reported side effects. Pt denies other needs or concerns today. Physical Exam Psychiatric Orientation: alert, oriented x 3 and cooperative Apperance: appropriately dressed, appropriately groomed and appeared stated age Eye Contact: + fair eye contact (frequently staring at floor) Motor Behavior: steady gait and station and no abnormal motor movements Speech: normal rate/rhythm/volume of speech (soft) Affect: + depressed affect, + constricted affect and mood congruent with affect Mood: + depressed mood ("not the greatest, the self harm thoughts are really high today") Thought Process: goal directed thought process and clear/coherent thought process Thought Content: reality based without delusions, + hopelessness, + worthlessness and + loneliness Suicidal Thoughts: + reports suicidal thoughts (ongoing suicidality - worsening self-harm urges), + reports suicidal plan and + reports suicidal intent Homicidal Thoughts: denies homicidal thoughts Hallucinations: no auditory hallucinations and no visual hallucinations Cognition: recent memory grossly intact, remote memory grossly intact, attention grossly intact and language grossly intact Estimated Intelligence: consistent with education level Insight: + impaired insight Judgement: + impaired judgement Vital Signs (Past 24 Hours) Last Vital Signs Temp 36.7 C 03/01/19 06:52 Pulse 73 03/01/19 06:53 Resp 18 03/01/19 06:52 BP 115/80 03/01/19 06:53 Pulse Ox 98 02/27/19 20:31 Results & Data Current Inpatient Medications Current Inpatient Medications: Current Inpatient Medications Acetaminophen (Tylenol) 650 mg PO Q4H PRN PRN Reason: Headache or Minor Fever Stop: 03/29/19 20:23 Al Hydrox/Mg Hydrox/Simethicone (Maalox) 30 ml PO Q4H PRN PRN Reason: GI Upset Stop: 03/29/19 20:23 Bismuth Subsalicylate (Kaopectate) 15 ml PO PRN PRN PRN Reason: Loose Stool Stop: 03/29/19 20:23 Citalopram Hydrobromide (Celexa) 40 mg PO QAM [facility] Stop: 03/31/19 08:59 Last Admin: 03/01/19 08:46 Dose: 40 mg Documented by: Clonidine HCl (Catapres) 0.05 mg PO BID [facility] Stop: 03/29/19 20:59 Last Admin: 02/28/19 10:06 Dose: Not Given Documented by: Hydroxyzine HCl (Vistaril) 25 mg PO Q4H PRN PRN Reason: Anxiety Stop: 03/29/19 20:23 Hydroxyzine HCl (Vistaril) 50 mg PO HSZ PRN PRN Reason: Insomnia Stop: 03/29/19 20:23 Magnesium Hydroxide (Milk Of Magnesia) 30 ml PO DAILY PRN PRN Reason: Heartburn Stop: 03/29/19 20:23 Miscellaneous (Remove Nicoderm Patch) 1 ea N/A HS [facility] Stop: 03/29/19 20:59 Last Admin: 02/28/19 21:00 Dose: Not Given Documented by: Nicotine Polacrilex (Nicorette 2mg) 1 piece MT UD PRN PRN Reason: Nicotine Withdrawal Stop: 03/29/19 20:48 Last Admin: 03/01/19 11:43 Dose: 1 piece Documented by: Sodium Chloride ([place] Nasal) 1 - 2 sprays NA PRN PRN PRN Reason: Nasal Dryness/Congestion Stop: 03/29/19 20:23 Post Discharge Appointments Primary Care Physician Name Of Family Doctor: Dr. Sidra Tesfaye Psychiatrist Date of Appointment with Psychiatrist: 03/14/19 Time of Appointment with Psychiatrist: 9am Therapist Name of Therapist: Constanza Vázquez Date of Therapist Appointment: 03/07/19 Time of Therapist Appointment: 6pm Secondary Set Up Man Name of Secondary Set Up Man: Trent referral to ELÍAS Fan CPT Code CPT Code 00046 (1) Depression Depression Type: major depressive disorder Major depression recurrence: recurrent Active/Remission status: currently active Major depression episode severity: severe Psychotic features: without psychotic features Qualified Code(s): F33.2 - Major depressive disorder, recurrent severe without psychotic features
[2019-03-02] MEDS: CITALOPRAM 40 MG TAB PO SCH (08:42)
[2019-03-02] MEDS: ACETAMINOPHEN 325 MG TAB PO PRN (09:47)
--- NOTE | 2019-03-02 13:01 | Psychiatric Progress Note ---
Date of Service March 02, 2019 Impression / Recommendations Impression Some improvement in mood is reported since yesterday; however, patient admits to ongoing suicidal thoughts. EKG completed today, his dose of citalopram was titrated to 40 mg daily. QTc = 403. She is anticipating a positive visit with her father this evening but continues to feel that her relationship with her parents is strained. Patient will require ongoing development of outpatient supports in order to reduce risk of harm on discharge. At this time she is unable to contract for safety outside of the hospital setting. SI and SIB urges are ongoing, and patient is at very high risk of harm to self if she were to be discharged at this point in her stay. (1) Suicidal ideation: 02/28 - Admitted to a locked inpatient behavioral health unit, on q15 minute safety checks - Encourage medication initiation/adjustments as indicated - Encourage participation in group and recreational therapies - Gather collateral information from outpatient providers - Suggest family meeting to involve outpatient supports in safety planning - Arrange appropriate aftercare 03/01 - SI ongoing, SIB urges worsened from yesterday 03/02 - SI ongoing (2) Depression: 02/28 - Titrate citalopram to 30mg total today by providing an additional 10mg dose - Pt will receive 40mg qAM beginning tomorrow morning - EKG was ordered for tomorrow morning, but accidentally completed today. QTc - wnl; repeat EKG ordered for 03/02/19 once she reaches 40mg daily dosage. - Will hold clonidine during admission and observe blood pressure; low on admission and may not be necessary for her to continue this medication 03/01 - Continue citalopram 40mg qAM - EKG ordered for tomorrow - Continue to encourage healthy and effective coping strategies - Assist patient with ways to add structure and routine to her daily schedule 03/02 - Continue current medication regimen - EKG reviewed - QTc = 403 - Continue to encourage constructive communication with her parents and other outpatient supports (3) Borderline personality disorder: 02/28 - Assist patient in development of coping strategies to manage impulsivity and better regulate emotions - Set healthy boundaries and limits during admission; continue education on diagnosis (4) Self-injurious behavior: 02/28 - Assist patient with development of healthy and effective coping strategies - Encourage patient to communicate feelings with staff regarding any self- harm urges 03/01 - Encouraged patient to report urges to stay, continue to engage in coping strategies to distract from these urges (5) Alcohol use disorder: 02/28 -Brief intervention was offered and accepted - though patient does not view her alcohol use as a problem Intervention was greater than 5 min in length. Brief interventions include: 1. Assess Readiness to Quit, 2. Advise: Help Anisha ent to Reduce or Abstain from Alcohol, 3. Agree: Set Specific, Feasible Goals, 4. Assist: Anticipate barriers, Problem-Solving Solutions. Social work to 5. Arrange: Referrals to appropriate treatment. Summary of intervention: The patient is in precontemplation stage with regards to transtheoretical model of change. The patient is advised to decrease alcohol consumption due to depressant effects and risk of interactions with prescription medications. The patient was advised of recommendations for abstinence from alcohol and other abusable substances and to attend substance abuse treatment at discharge, and will be provided with recovery materials to continue to education self on how to cope with their condition without drinking. (6) Cannabis abuse: 02/28 - Continue to educate patient on concerns related to marijuana use in conjunction with psychiatric treatment - Encourage the patient abstain from marijuana usage after discharge (7) Nicotine dependence, cigarettes, uncomplicated: 02/28 - Patient is provided with nicotine gum during admission, recommendation to reduce and ultimately abstaining from tobacco use will not be the primary focus of admission, but should be encouraged Inventory Assets Strengths: Long history with current outpatient providers, willingness to participate in treatment Needs: Appropriate and effective medication adjustments, development of healthy and effective coping strategies, abstaining from substance use Risk Factors Assessment Male: No : Yes Do You Have Access To A Gun?: No Health Problems: No Mental Health Diagnoses: Yes Substance Use Disorders: Yes Previous Attempt: Yes Previous Attempt; Highly Lethal: Yes Previous Attempt; Planned: Yes Family History of Suicide: No Previous Psychiatric Hospitalization: Yes Hopelessness: Yes Smoker: Yes Protective Factors Assessment Yazdanism Beliefs: No : No Responsible for Young Children: No Employed: Yes Stable Relationships: No Supportive Family: Yes (Though there is also significant tension at times) Good Rapport with Provider: Yes Interval History Identifying Information LIZET GARCIA is a 24-year-old F who currently lives in [place] with her parents and sister with special needs. Pt has a history of borderline personality disorder, depression, and anxiety. Pt was brought to the ED by police on a 302 warrant, with petitioning statement completed by her mother. Pt was admitted on 02/27/19 19:23 on a 201 voluntary commitment for worsening mood and suicidal statements reported. Chief Complaint "Things are going pretty good." Review of Systems Notes Constitutional: denied Cardiovascular: denied Respiratory: denied Gastrointestinal: denied Neurological: denied Psychiatric: denies symptoms other than stated above Total of at least 10 systems reviewed, pertinent positives as above and in HPI. Sleep Information Total Hours of Sleep: 6.75 Meal Information Percent Meal Consumed - Breakfast: 100 Percent Meal Consumed - Lunch: 100 Percent Meal Consumed - Dinner: 75 Nutrition Comment: per meal record Subjective Subjective Patient was seen & assessed and interval progress reviewed with Nursing. Staff reports that the patient had a rather difficult meeting with her parents yesterday. Last evening she rated her mood a 2/10 and "apathetic." Patient was seen today to assess progress since admission. Patient states she feels that today has been a better day and she is in a "better mood." She reports that she had a conversation with her father over the phone today, and felt that it went well. He is planning to visit this evening, and patient is hopeful for a good interaction. Patient inquires about her current medication regimen, stating she is aware that she is on an antidepressant medication but "I never been on a medication to help with anxiety." Education regarding SSRIs and their use and treatment of both depression and anxiety was provided to the patient. She verbalized understanding after our conversation and from the discussion helpful. Patient does report ongoing suicidality, and inability to contract for safety outside of the hospital. Patient states, "I keep thinking about going home, the relationship with my parents really makes me anxious." Patient states she does not feel that she would be successful to manage anticipated stressors if she were to be discharged at this time. Patient denies other needs or concerns at this time. Physical Exam Psychiatric Orientation: alert, oriented x 3 and cooperative Apperance: appropriately dressed (In sweat shirt and scrub pants), appropriately groomed and appeared stated age Eye Contact: good eye contact Motor Behavior: steady gait and station and no abnormal motor movements Speech: normal rate/rhythm/volume of speech (soft tone) Affect: + depressed affect and mood congruent with affect Mood: + depressed mood ("I am in a better mood than yesterday") Thought Process: goal directed thought process and clear/coherent thought process Thought Content: + preoccupation (With suicidality in relationship with parents), + cognitive distortions, reality based without delusions, + hopelessness and + worthlessness Suicidal Thoughts: + reports suicidal thoughts (ongoing suicidality since admission), + reports suicidal plan and + reports suicidal intent Homicidal Thoughts: denies homicidal thoughts Hallucinations: no auditory hallucinations and no visual hallucinations Cognition: recent memory grossly intact, remote memory grossly intact, attention grossly intact and language grossly intact Estimated Intelligence: consistent with education level Insight: + impaired insight Judgement: + impaired judgement Vital Signs (Past 24 Hours) Last Vital Signs Temp 36.7 C 03/02/19 06:00 Pulse 73 03/02/19 07:11 Resp 18 03/01/19 06:52 BP 107/72 03/02/19 07:11 Pulse Ox 98 02/27/19 20:31 Results & Data Current Inpatient Medications Current Inpatient Medications: Current Inpatient Medications Acetaminophen (Tylenol) 650 mg PO Q4H PRN PRN Reason: Headache or Minor Fever Stop: 03/29/19 20:23 Last Admin: 03/02/19 09:47 Dose: 650 mg Documented by: Al Hydrox/Mg Hydrox/Simethicone (Maalox) 30 ml PO Q4H PRN PRN Reason: GI Upset Stop: 03/29/19 20:23 Bismuth Subsalicylate (Kaopectate) 15 ml PO PRN PRN PRN Reason: Loose Stool Stop: 03/29/19 20:23 Citalopram Hydrobromide (Celexa) 40 mg PO QAM [facility] Stop: 03/31/19 08:59 Last Admin: 03/02/19 08:42 Dose: 40 mg Documented by: Clonidine HCl (Catapres) 0.05 mg PO BID [facility] Stop: 03/29/19 20:59 Last Admin: 02/28/19 10:06 Dose: Not Given Documented by: Hydroxyzine HCl (Vistaril) 25 mg PO Q4H PRN PRN Reason: Anxiety Stop: 03/29/19 20:23 Hydroxyzine HCl (Vistaril) 50 mg PO HSZ PRN PRN Reason: Insomnia Stop: 03/29/19 20:23 Magnesium Hydroxide (Milk Of Magnesia) 30 ml PO DAILY PRN PRN Reason: Heartburn Stop: 03/29/19 20:23 Miscellaneous (Remove Nicoderm Patch) 1 ea N/A HS [facility] Stop: 03/29/19 20:59 Last Admin: 03/01/19 21:40 Dose: Not Given Documented by: Nicotine Polacrilex (Nicorette 2mg) 1 piece MT UD PRN PRN Reason: Nicotine Withdrawal Stop: 03/29/19 20:48 Last Admin: 03/01/19 11:43 Dose: 1 piece Documented by: Sodium Chloride ([place] Nasal) 1 - 2 sprays NA PRN PRN PRN Reason: Nasal Dryness/Congestion Stop: 03/29/19 20:23 Post Discharge Appointments Primary Care Physician Name Of Family Doctor: Dr. Sidra Tesfaye Psychiatrist Date of Appointment with Psychiatrist: 03/14/19 Time of Appointment with Psychiatrist: 9am Therapist Name of Therapist: Constanza Vázquez Date of Therapist Appointment: 03/07/19 Time of Therapist Appointment: 6pm Interactive Media Director Name of Interactive Media Director: Trent referral to Irina Mita CPT Code CPT Code 88667 (1) Depression Active/Remission status: currently active Depression Type: major depressive disorder Major depression episode severity: severe Major depression recurrence: recurrent Psychotic features: without psychotic features Qualified Code(s): F33.2 - Major depressive disorder, recurrent severe without psychotic features
[2019-03-02] MEDS: NICOTINE POLACRILEX 2 MG GUM MT PRN (14:20)
[2019-03-03] MEDS: CITALOPRAM 40 MG TAB PO SCH (08:50)
[2019-03-03] MEDS: NICOTINE POLACRILEX 2 MG GUM MT PRN (09:21)
--- NOTE | 2019-03-03 10:02 | Psychiatric Progress Note ---
Date of Service March 03, 2019 Impression / Recommendations Impression Pt feels mood has returned to her "usual 4/10", but continues to desire that baseline mood be improved overall. She is tolerating medication regimen, and reports desire to remain at 40mg daily. We discussed future consideration of further titration to 60mg, but reviewed increased risk of QTc prolongation and recommendation for routine EKGs with elevated doses. Pt states she feels she is getting closer to baseline, but still feels skeptical about the improvements, reporting inability to contract for safety outside of the hospital setting. SI and SIB urges are ongoing, and patient is at very high risk of harm to self if she were to be discharged at this point in her stay. (1) Suicidal ideation: 02/28 - Admitted to a locked inpatient behavioral health unit, on q15 minute safety checks - Encourage medication initiation/adjustments as indicated - Encourage participation in group and recreational therapies - Gather collateral information from outpatient providers - Suggest family meeting to involve outpatient supports in safety planning - Arrange appropriate aftercare 03/01 - SI ongoing, SIB urges worsened from yesterday 03/02 - SI ongoing (2) Depression: 02/28 - Titrate citalopram to 30mg total today by providing an additional 10mg dose - Pt will receive 40mg qAM beginning tomorrow morning - EKG was ordered for tomorrow morning, but accidentally completed today. QTc - wnl; repeat EKG ordered for 03/02/19 once she reaches 40mg daily dosage. - Will hold clonidine during admission and observe blood pressure; low on admission and may not be necessary for her to continue this medication 03/01 - Continue citalopram 40mg qAM - EKG ordered for tomorrow - Continue to encourage healthy and effective coping strategies - Assist patient with ways to add structure and routine to her daily schedule 03/02 - Continue current medication regimen - EKG reviewed - QTc = 403 - Continue to encourage constructive communication with her parents and other outpatient supports 03/03 - Continue current medication regimen (3) Borderline personality disorder: 02/28 - Assist patient in development of coping strategies to manage impulsivity and better regulate emotions - Set healthy boundaries and limits during admission; continue education on diagnosis (4) Self-injurious behavior: 02/28 - Assist patient with development of healthy and effective coping strategies - Encourage patient to communicate feelings with staff regarding any self- harm urges 03/01 - Encouraged patient to report urges to stay, continue to engage in coping strategies to distract from these urges 03/03 - Ongoing self-harm urges, no specific temptations reported on the unit. - Continues to distract self with various activities (5) Alcohol use disorder: 02/28 -Brief intervention was offered and accepted - though patient does not view her alcohol use as a problem Intervention was greater than 5 min in length. Brief interventions include: 1. Assess Readiness to Quit, 2. Advise: Help Patie nt to Reduce or Abstain from Alcohol, 3. Agree: Set Specific, Feasible Goals, 4. Assist: Anticipate barriers, Problem-Solving Solutions. Social work to 5. Arrange: Referrals to appropriate treatment. Summary of intervention: The patient is in precontemplation stage with regards to transtheoretical model of change. The patient is advised to decrease alcohol consumption due to depressant effects and risk of interactions with prescription medications. The patient was advised of recommendations for abstinence from alcohol and other abusable substances and to attend substance abuse treatment at discharge, and will be provided with recovery materials to continue to education self on how to cope with their condition without drinking. (6) Cannabis abuse: 02/28 - Continue to educate patient on concerns related to marijuana use in conjunction with psychiatric treatment - Encourage the patient abstain from marijuana usage after discharge (7) Nicotine dependence, cigarettes, uncomplicated: 02/28 - Patient is provided with nicotine gum during admission, recommendation to reduce and ultimately abstaining from tobacco use will not be the primary focus of admission, but should be encouraged Inventory Assets Strengths: Long history with current outpatient providers, willingness to participate in treatment Needs: Appropriate and effective medication adjustments, development of healthy and effective coping strategies, abstaining from substance use Risk Factors Assessment Male: No : Yes Do You Have Access To A Gun?: No Health Problems: No Mental Health Diagnoses: Yes Substance Use Disorders: Yes Previous Attempt: Yes Previous Attempt; Highly Lethal: Yes Previous Attempt; Planned: Yes Family History of Suicide: No Previous Psychiatric Hospitalization: Yes Hopelessness: Yes Smoker: Yes Protective Factors Assessment Confucianist Beliefs: No : No Responsible for Young Children: No Employed: Yes Stable Relationships: No Supportive Family: Yes (Though there is also significant tension at times) Good Rapport with Provider: Yes Interval History Identifying Information LIZET GARCIA is a 24-year-old F who currently lives in [place] with her parents and sister with special needs. Pt has a history of borderline personality disorder, depression, and anxiety. Pt was brought to the ED by police on a 302 warrant, with petitioning statement completed by her mother. Pt was admitted on 02/27/19 19:23 on a 201 voluntary commitment for worsening mood and suicidal statements reported. Chief Complaint "Good. I had some trouble sleeping last night, felt pretty restless." Review of Systems Notes Constitutional: reports some fatigue, restless sleep last evening Cardiovascular: denied Respiratory: denied Gastrointestinal: denied Neurological: denied Psychiatric: denies symptoms other than stated above Total of at least 10 systems reviewed, pertinent positives as above and in HPI. Sleep Information Total Hours of Sleep: 6.5 Meal Information Percent Meal Consumed - Breakfast: 100 Percent Meal Consumed - Lunch: 100 Percent Meal Consumed - Dinner: 100 Nutrition Comment: per meal record Subjective Subjective Patient was seen & assessed and interval progress reviewed with Treatment Team. Staff reports the patient continues to verbalize self-harm thoughts. She declined offers of rehab or CRR/RTF when discussed with social work. Pt was seen today to assess progress since admission. Pt states she is "good", but reports that her mood is "still relatively the same." Pt admits her "usual mood" outside of the hospital is a 4/10 - though she strongly desires for it to be "more of a 6 or 7." Pt states she would rate her mood a 4/10 today, but is not sure that this is consistent. Pt admits to ongoing self-harm thoughts and SI which she describes as "heavy", attempting to distract herself with various activities on the unit. Pt reports a plan to call her mother this evening in order to continue efforts toward better communication - stating "I don't think I'm going to talk about anything heavy, just say hi and stuff." Pt denies other needs or concerns today. Physical Exam Psychiatric Orientation: alert, oriented x 3 and cooperative Apperance: appropriately dressed and appropriately groomed Eye Contact: good eye contact Motor Behavior: steady gait and station and no abnormal motor movements Speech: normal rate/rhythm/volume of speech Affect: + blunted affect and mood congruent with affect "Eh, I still feel relatively the same." Thought Process: goal directed thought process and clear/coherent thought process Thought Content: reality based without delusions, + hopelessness and + worthlessness Suicidal Thoughts: + reports suicidal thoughts Homicidal Thoughts: denies homicidal thoughts Hallucinations: no auditory hallucinations and no visual hallucinations Cognition: attention grossly intact and language grossly intact Estimated Intelligence: consistent with education level Insight: + fair insight Judgement: + fair judgement Vital Signs (Past 24 Hours) Last Vital Signs Temp 36.7 C 03/03/19 06:00 Pulse 68 03/03/19 06:00 Resp 16 03/03/19 06:00 BP 100/58 L 03/03/19 06:00 Pulse Ox 98 02/27/19 20:31 Results & Data Laboratory Results Laboratory Results - last 24 hr 02/27/19 16:10 U Marijuana THC Carboxy 90 A Current Inpatient Medications Current Inpatient Medications: Current Inpatient Medications Acetaminophen (Tylenol) 650 mg PO Q4H PRN PRN Reason: Headache or Minor Fever Stop: 03/29/19 20:23 Last Admin: 03/02/19 09:47 Dose: 650 mg Documented by: Al Hydrox/Mg Hydrox/Simethicone (Maalox) 30 ml PO Q4H PRN PRN Reason: GI Upset Stop: 03/29/19 20:23 Bismuth Subsalicylate (Kaopectate) 15 ml PO PRN PRN PRN Reason: Loose Stool Stop: 03/29/19 20:23 Citalopram Hydrobromide (Celexa) 40 mg PO QAM [facility] Stop: 03/31/19 08:59 Last Admin: 03/03/19 08:50 Dose: 40 mg Documented by: Clonidine HCl (Catapres) 0.05 mg PO BID PRAVEEN Stop: 03/29/19 20:59 Last Admin: 02/28/19 10:06 Dose: Not Given Documented by: Hydroxyzine HCl (Vistaril) 25 mg PO Q4H PRN PRN Reason: Anxiety Stop: 03/29/19 20:23 Hydroxyzine HCl (Vistaril) 50 mg PO HSZ PRN PRN Reason: Insomnia Stop: 03/29/19 20:23 Magnesium Hydroxide (Milk Of Magnesia) 30 ml PO DAILY PRN PRN Reason: Heartburn Stop: 03/29/19 20:23 Miscellaneous (Remove Nicoderm Patch) 1 ea N/A HS PRAVEEN Stop: 03/29/19 20:59 Last Admin: 03/02/19 21:33 Dose: Not Given Documented by: Nicotine Polacrilex (Nicorette 2mg) 1 piece MT UD PRN PRN Reason: Nicotine Withdrawal Stop: 03/29/19 20:48 Last Admin: 03/03/19 09:21 Dose: 1 piece Documented by: Sodium Chloride ([place] Nasal) 1 - 2 sprays NA PRN PRN PRN Reason: Nasal Dryness/Congestion Stop: 03/29/19 20:23 Post Discharge Appointments Primary Care Physician Name Of Family Doctor: Dr. Sidra Tesfaye Psychiatrist Date of Appointment with Psychiatrist: 03/14/19 Time of Appointment with Psychiatrist: 9am Therapist Name of Therapist: Constanza Vázquez Date of Therapist Appointment: 03/07/19 Time of Therapist Appointment: 6pm Multiple Punch Press Operator Name of Multiple Punch Press Operator: Trent referral to [facility] CPT Code CPT Code 80939 (1) Depression Active/Remission status: currently active Depression Type: major depressive disorder Major depression episode severity: severe Major depression recurrence: recurrent Psychotic features: without psychotic features Qualified Code(s): F33.2 - Major depressive disorder, recurrent severe without psychotic features
[2019-03-03] MEDS: ACETAMINOPHEN 325 MG TAB PO PRN (10:07)
[2019-03-04] MEDS: CITALOPRAM 40 MG TAB PO SCH (10:05)
--- NOTE | 2019-03-04 15:28 | Psychiatric Progress Note ---
Date of Service March 04, 2019 Impression / Recommendations Impression Patient is less optimistic about mood trend today. Describes thoughts of hopelessness and yet unable to contract for safety outside of the hospital. Risk for self-harm is very high if discharged prematurely. (1) Suicidal ideation: 02/28 - Admitted to a locked inpatient behavioral health unit, on q15 minute safety checks - Encourage medication initiation/adjustments as indicated - Encourage participation in group and recreational therapies - Gather collateral information from outpatient providers - Suggest family meeting to involve outpatient supports in safety planning - Arrange appropriate aftercare 03/01 - SI ongoing, SIB urges worsened from yesterday 03/02 - SI ongoing 03/04 - SI unresolved (2) Depression: 02/28 - Titrate citalopram to 30mg total today by providing an additional 10mg dose - Pt will receive 40mg qAM beginning tomorrow morning - EKG was ordered for tomorrow morning, but accidentally completed today. QTc - wnl; repeat EKG ordered for 03/02/19 once she reaches 40mg daily dosage. - Will hold clonidine during admission and observe blood pressure; low on admission and may not be necessary for her to continue this medication 03/01 - Continue citalopram 40mg qAM - EKG ordered for tomorrow - Continue to encourage healthy and effective coping strategies - Assist patient with ways to add structure and routine to her daily schedule 03/02 - Continue current medication regimen - EKG reviewed - QTc = 403 - Continue to encourage constructive communication with her parents and other outpatient supports 03/03 - Continue current medication regimen (3) Borderline personality disorder: 02/28 - Assist patient in development of coping strategies to manage impulsivity and better regulate emotions - Set healthy boundaries and limits during admission; continue education on diagnosis 03/04 - considered treatment options for emotional lability and impulse dyscontrol assoc w/ BPD. she was willing to trial lamictal after review of risks and benefits which included discussion of risk for ania's heraclio syndrome and need for regular compliance. will start 25mg po qhs. if well tolerated, can be further titrated as outpatient. (4) Self-injurious behavior: 02/28 - Assist patient with development of healthy and effective coping strategies - Encourage patient to communicate feelings with staff regarding any self- harm urges 03/01 - Encouraged patient to report urges to stay, continue to engage in coping strategies to distract from these urges 03/03 - Ongoing self-harm urges, no specific temptations reported on the unit. - Continues to distract self with various activities (5) Alcohol use disorder: 02/28 -Brief intervention was offered and accepted - though patient does not view her alcohol use as a problem Intervention was greater than 5 min in length. Brief interventions include: 1. Assess Readiness to Quit, 2. Advise: Help Patient to Reduce or Abstain from Alcohol, 3. Agree: Set Specific, Feasible Goals, 4. Assist: Anticipate barriers, Problem-Solving Solutions. Social work to 5. Arrange: Referrals to appropriate treatment. Summary of intervention: The patient is in precontemplation stage with regards to transtheoretical model of change. The patient is advised to decrease alcohol consumption due to depressant effects and risk of interactions with prescription medications. The patient was advised of recommendations for abstinence from alcohol and other abusable substances and to attend substance abuse treatment at discharge, and will be provided with recovery materials to continue to education self on how to cope with their condition without drinking. (6) Cannabis abuse: 02/28 - Continue to educate patient on concerns related to marijuana use in conjunction with psychiatric treatment - Encourage the patient abstain from marijuana usage after discharge (7) Nicotine dependence, cigarettes, uncomplicated: 02/28 - Patient is provided with nicotine gum during admission, recommendation to reduce and ultimately abstaining from tobacco use will not be the primary focus of admission, but should be encouraged Inventory Assets Strengths: Long history with current outpatient providers, willingness to participate in treatment Needs: Appropriate and effective medication adjustments, development of healthy and effective coping strategies, abstaining from substance use Risk Factors Assessment Male: No : Yes Do You Have Access To A Gun?: No Health Problems: No Mental Health Diagnoses: Yes Substance Use Disorders: Yes Previous Attempt: Yes Previous Attempt; Highly Lethal: Yes Previous Attempt; Planned: Yes Family History of Suicide: No Previous Psychiatric Hospitalization: Yes Hopelessness: Yes Smoker: Yes Protective Factors Assessment Moravian Beliefs: No : No Responsible for Young Children: No Employed: Yes Stable Relationships: No Supportive Family: Yes (Though there is also significant tension at times) Good Rapport with Provider: Yes Interval History Identifying Information LIZET GARCIA is a 24-year-old F who currently lives in [place] with her parents and sister with special needs. Pt has a history of borderline personality disorder, depression, and anxiety. Pt was brought to the ED by police on a 302 warrant, with petitioning statement completed by her mother. Pt was admitted on 02/27/19 19:23 on a 201 voluntary commitment for worsening mood and suicidal statements reported. Chief Complaint "Nothing really seems to help". Review of Systems Sleep Information Total Hours of Sleep: 6.25 Meal Information Percent Meal Consumed - Breakfast: 100 Percent Meal Consumed - Lunch: 100 Percent Meal Consumed - Dinner: 100 Nutrition Comment: per meal record Subjective Subjective Patient was seen & assessed and interval progress reviewed with Treatment Team. Per staff, patient looking a little brighter on the unit however she reports anxiety and some hopelessness on interview today. States that medications typically seem to only help for a short period of time and then she will become upset and probably suicidal again. Discussed history of excessive emotional reactivity and long history of cutting both to cope as well as to self punish. She remains unable to contract for safety outside of the hospital at the present time. She does not believe that she has ever been treated with a mood stabilizer. Physical Exam Psychiatric Orientation: oriented x 3 and cooperative Apperance: appropriately dressed Eye Contact: + fair eye contact Motor Behavior: + psychomotor agitation (hakes legs while speaking); n tremor Speech: normal rate/rhythm/volume of speech Affect: + constricted affect and mood congruent with affect Mood: + depressed mood and + anxious mood Thought Process: goal directed thought process Thought Content: no delusions Suicidal Thoughts: + reports suicidal thoughts Estimated Intelligence: average estimated intelligence Insight: + limited insight Judgement: + impaired judgement Vital Signs (Past 24 Hours) Last Vital Signs Temp 36.6 C 03/04/19 06:00 Pulse 54 L 03/04/19 06:55 Resp 16 03/04/19 06:00 BP 100/67 03/04/19 06:55 Pulse Ox 98 02/27/19 20:31 Results & Data Current Inpatient Medications Current Inpatient Medications: Current Inpatient Medications Acetaminophen (Tylenol) 650 mg PO Q4H PRN PRN Reason: Headache or Minor Fever Stop: 03/29/19 20:23 Last Admin: 03/03/19 10:07 Dose: 650 mg Documented by: Al Hydrox/Mg Hydrox/Simethicone (Maalox) 30 ml PO Q4H PRN PRN Reason: GI Upset Stop: 03/29/19 20:23 Bismuth Subsalicylate (Kaopectate) 15 ml PO PRN PRN PRN Reason: Loose Stool Stop: 03/29/19 20:23 Citalopram Hydrobromide (Celexa) 40 mg PO QAM [facility] Stop: 03/31/19 08:59 Last Admin: 03/04/19 10:05 Dose: 40 mg Documented by: Clonidine HCl (Catapres) 0.05 mg PO BID PRAVEEN Stop: 03/29/19 20:59 Last Admin: 02/28/19 10:06 Dose: Not Given Documented by: Hydroxyzine HCl (Vistaril) 25 mg PO Q4H PRN PRN Reason: Anxiety Stop: 03/29/19 20:23 Hydroxyzine HCl (Vistaril) 50 mg PO HSZ PRN PRN Reason: Insomnia Stop: 03/29/19 20:23 Last Admin: 03/03/19 22:12 Dose: 50 mg Documented by: Magnesium Hydroxide (Milk Of Magnesia) 30 ml PO DAILY PRN PRN Reason: Heartburn Stop: 03/29/19 20:23 Miscellaneous (Remove Nicoderm Patch) 1 ea N/A HS PRAVEEN Stop: 03/29/19 20:59 Last Admin: 03/03/19 20:37 Dose: Not Given Documented by: Nicotine Polacrilex (Nicorette 2mg) 1 piece MT UD PRN PRN Reason: Nicotine Withdrawal Stop: 03/29/19 20:48 Last Admin: 03/03/19 09:21 Dose: 1 piece Documented by: Sodium Chloride ([place] Nasal) 1 - 2 sprays NA PRN PRN PRN Reason: Nasal Dryness/Congestion Stop: 03/29/19 20:23 Post Discharge Appointments Primary Care Physician Name Of Family Doctor: Dr. Sidra Aguilar [facility] Time of Appointment with PCP: Follow up as needed. Provider Appointment Comment: [address] [facility] [place] [address] Psychiatrist Name of Psychiatrist: [facility] - Dr. Casillas Psychiatrist's Date of Appointment with Psychiatrist: 03/14/19 Time of Appointment with Psychiatrist: 9am Psychiatric Appointment Comment: [address] [place] [address] Therapist Name of Therapist: Constanza Vázquez Therapist's Date of Therapist Appointment: 03/07/19 Time of Therapist Appointment: 6pm Therapy Appointment Comment: [address] [place], [place] [address] [address] Interior Wirer Name of Interior Wirer: [employer] Phone Number for Interior Wirer: [phone] Case Management Appointment Comment: [address], [place] [address] Contact Information Discharge Discharge [address]: [address] [place], [place] [address] [address] CPT Code CPT Code 66206 (1) Depression Depression Type: major depressive disorder Major depression recurrence: recurrent Active/Remission status: currently active Major depression episode severity: severe Psychotic features: without psychotic features Qualified Code(s): F33.2 - Major depressive disorder, recurrent severe without psychotic features
[2019-03-04] MEDS: lamoTRIgine 25 MG TAB PO SCH (21:26)
[2019-03-05] MEDS: CITALOPRAM 40 MG TAB PO SCH (08:43)
[2019-03-05] MEDS: NICOTINE POLACRILEX 2 MG GUM MT PRN (09:20)
[2019-03-05] MEDS: ACETAMINOPHEN 325 MG TAB PO PRN (09:38)
[2019-03-05] MEDS: lamoTRIgine 25 MG TAB PO SCH (21:31)
[2019-03-06] MEDS: CITALOPRAM 40 MG TAB PO SCH (09:30)
--- NOTE | 2019-03-06 10:50 | Psychiatric Progress Note ---
Date of Service March 06, 2019 Impression / Recommendations Impression Patient reporting hopelessness since yesterday evening, associated with worsening suicidal ideation and temptation to self-harm. Reviewed safety plan here within the hospital setting, offering patient remain in light of site but nurses station if necessary. Patient was encouraged to seek one-to-one counseling if necessary to process thoughts and concerns. Patient is unable to contract for safety outside of the hospital setting, especially with worsening of suicidal thoughts and desire to self-harm. Patient remains at very high risk of harm to self if discharged prematurely. She does have a therapy appointment tomorrow, can reschedule if there is no considerable change in mood throughout the remainder of the day. (1) Suicidal ideation: 02/28 - Admitted to a locked inpatient behavioral health unit, on q15 minute safety checks - Encourage medication initiation/adjustments as indicated - Encourage participation in group and recreational therapies - Gather collateral information from outpatient providers - Suggest family meeting to involve outpatient supports in safety planning - Arrange appropriate aftercare 03/01 - SI ongoing, SIB urges worsened from yesterday 03/02 - SI ongoing 03/04 - SI unresolved 03/06 - SI worsened from yesterday; associated with elevated desire to self-harm (2) Depression: 02/28 - Titrate citalopram to 30mg total today by providing an additional 10mg dose - Pt will receive 40mg qAM beginning tomorrow morning - EKG was ordered for tomorrow morning, but accidentally completed today. QTc - wnl; repeat EKG ordered for 03/02/19 once she reaches 40mg daily dosage. - Will hold clonidine during admission and observe blood pressure; low on admission and may not be necessary for her to continue this medication 03/01 - Continue citalopram 40mg qAM - EKG ordered for tomorrow - Continue to encourage healthy and effective coping strategies - Assist patient with ways to add structure and routine to her daily schedule 03/02 - Continue current medication regimen - EKG reviewed - QTc = 403 - Continue to encourage constructive communication with her parents and other outpatient supports 03/03 - Continue current medication regimen (3) Borderline personality disorder: 02/28 - Assist patient in development of coping strategies to manage impulsivity and better regulate emotions - Set healthy boundaries and limits during admission; continue education on diagnosis 03/04 - considered treatment options for emotional lability and impulse dyscontrol assoc w/ BPD. she was willing to trial lamictal after review of risks and benefits which included discussion of risk for ania's heraclio syndrome and need for regular compliance. will start 25mg po qhs. if well tolerated, can be further titrated as outpatient. 03/06 - Continue current medication regimen; citalopram 40mg qAM and recently added lamotrigine 25mg - denies side effects presently. (4) Self-injurious behavior: 02/28 - Assist patient with development of healthy and effective coping strategies - Encourage patient to communicate feelings with staff regarding any self- harm urges 03/01 - Encouraged patient to report urges to stay, continue to engage in coping strategies to distract from these urges 03/03 - Ongoing self-harm urges, no specific temptations reported on the unit. - Continues to distract self with various activities 03/06 - Reporting elevated desire to self-harm today (5) Alcohol use disorder: 02/28 -Brief intervention was offered and accepted - though patient does not view her alcohol use as a problem Intervention was greater than 5 min in length. Brief interventions include: 1. Assess Readiness to Quit, 2. Advise: Help Patient to Reduce or Abstain from Alcohol, 3. Agree: Set Specific, Feasible Goals, 4. Assist: Anticipate barriers, Problem-Solving Solutions. Social work to 5. Arrange: Referrals to appropriate treatment. Summary of intervention: The patient is in precontemplation stage with regards to transtheoretical model of change. The patient is advised to decrease alcohol consumption due to depressant effects and risk of interactions with prescription medications. The patient was advised of recommendations for abstinence from alcohol and other abusable substances and to attend substance abuse treatment at discharge, and will be provided with recovery materials to continue to education self on how to cope with their condition without drinking. (6) Cannabis abuse: 02/28 - Continue to educate patient on concerns related to marijuana use in conjunction with psychiatric treatment - Encourage the patient abstain from marijuana usage after discharge (7) Nicotine dependence, cigarettes, uncomplicated: 02/28 - Patient is provided with nicotine gum during admission, recommendation to reduce and ultimately abstaining from tobacco use will not be the primary focus of admission, but should be encouraged Inventory Assets Strengths: Long history with current outpatient providers, willingness to participate in treatment Needs: Appropriate and effective medication adjustments, development of healthy and effective coping strategies, abstaining from substance use Risk Factors Assessment Male: No : Yes Do You Have Access To A Gun?: No Health Problems: No Mental Health Diagnoses: Yes Substance Use Disorders: Yes Previous Attempt: Yes Previous Attempt; Highly Lethal: Yes Previous Attempt; Planned: Yes Family History of Suicide: No Previous Psychiatric Hospitalization: Yes Hopelessness: Yes Smoker: Yes Protective Factors Assessment Religion Beliefs: No : No Responsible for Young Children: No Employed: Yes Stable Relationships: No Supportive Family: Yes (Though there is also significant tension at times) Good Rapport with Provider: Yes Interval History Identifying Information LIZET GARCIA is a 24-year-old F who currently lives in [place] with her parents and sister with special needs. Pt has a history of borderline personality disorder, depression, and anxiety. Pt was brought to the ED by police on a 302 warrant, with petitioning statement completed by her mother. Pt was admitted on 02/27/19 19:23 on a 201 voluntary commitment for worsening mood and suicidal statements reported. Chief Complaint "I don't know. Just feeling really hopeless." Review of Systems Notes Constitutional: reports mild fatigue Cardiovascular: denied Respiratory: denied Gastrointestinal: denied Neurological: denied Psychiatric: denies symptoms other than stated above Total of at least 10 systems reviewed, pertinent positives as above and in HPI. Sleep Information Total Hours of Sleep: 7.25 Meal Information Percent Meal Consumed - Breakfast: 100 Percent Meal Consumed - Lunch: 100 Percent Meal Consumed - Dinner: 100 Nutrition Comment: per meal record Subjective Subjective Patient was seen & assessed and interval progress reviewed with Treatment Team. Staff reports the patient displayed a somewhat brighter affect as the weekend progressed. At this point the patient states she is interested in returning home with her parents at discharge. Patient was seen today to assess progress since admission. She states so far this morning she has been "hopeless." These feelings have reportedly been ongoing since yesterday evening, and are associated with increased suicidal ideation and self-harm urges. Patient states her mind at this time is preoccupied with her desire to self injure, but she denies any specific temptations here on the unit. Patient states if she were to be discharged today, "I do not know, I guess I had be fine for a few days, but then the same feelings would just come right back." Patient is unable to convincingly contract for safety outside of the hospital setting, and future oriented comments are very limited during our conversation. Patient states she has been tolerating the initiation of lamotrigine, and denies any medication concerns. Patient was encouraged to inform staff of any needs, reaching out for one-to-one counseling if necessary, and she was offered to remain within line of sight of staff if this would benefit her self-harm temptations. Patient denies any other needs or concerns today. Physical Exam Psychiatric Orientation: alert, oriented x 3 and cooperative Apperance: appropriately dressed and appropriately groomed Eye Contact: good eye contact Motor Behavior: no abnormal motor movements (Observed while laying in bed) Speech: normal rate/rhythm/volume of speech Affect: + flat affect Mood: + depressed mood "Hopeless. It goes along with suicidal thoughts and thoughts to self-harm." Thought Process: clear/coherent thought process Thought Content: + preoccupation (With urges to self-harm) and reality based without delusions Suicidal Thoughts: + reports suicidal thoughts and + reports suicidal plan Homicidal Thoughts: denies homicidal thoughts Hallucinations: no auditory hallucinations and no visual hallucinations Cognition: recent memory grossly intact, remote memory grossly intact, attention grossly intact and language grossly intact Estimated Intelligence: consistent with education level Insight: + limited insight Judgement: + limited judgement Vital Signs (Past 24 Hours) Last Vital Signs Temp 36.5 C 03/06/19 06:00 Pulse 72 03/06/19 06:00 Resp 18 03/06/19 06:00 BP 104/64 03/06/19 06:00 Pulse Ox 98 02/27/19 20:31 Results & Data Current Inpatient Medications Current Inpatient Medications: Current Inpatient Medications Acetaminophen (Tylenol) 650 mg PO Q4H PRN PRN Reason: Headache or Minor Fever Stop: 03/29/19 20:23 Last Admin: 03/05/19 09:38 Dose: 650 mg Documented by: Al Hydrox/Mg Hydrox/Simethicone (Maalox) 30 ml PO Q4H PRN PRN Reason: GI Upset Stop: 03/29/19 20:23 Bismuth Subsalicylate (Kaopectate) 15 ml PO PRN PRN PRN Reason: Loose Stool Stop: 03/29/19 20:23 Citalopram Hydrobromide (Celexa) 40 mg PO QAM PRAVEEN Stop: 03/31/19 08:59 Last Admin: 03/06/19 09:30 Dose: 40 mg Documented by: Clonidine HCl (Catapres) 0.05 mg PO BID PRAVEEN Stop: 03/29/19 20:59 Last Admin: 02/28/19 10:06 Dose: Not Given Documented by: Hydroxyzine HCl (Vistaril) 25 mg PO Q4H PRN PRN Reason: Anxiety Stop: 03/29/19 20:23 Hydroxyzine HCl (Vistaril) 50 mg PO HSZ PRN PRN Reason: Insomnia Stop: 03/29/19 20:23 Last Admin: 03/03/19 22:12 Dose: 50 mg Documented by: Lamotrigine (Lamictal) 25 mg PO HS PRAVEEN Stop: 04/03/19 21:59 Last Admin: 03/05/19 21:31 Dose: 25 mg Documented by: Magnesium Hydroxide (Milk Of Magnesia) 30 ml PO DAILY PRN PRN Reason: Heartburn Stop: 03/29/19 20:23 Miscellaneous (Remove Nicoderm Patch) 1 ea N/A HS PRAVEEN Stop: 03/29/19 20:59 Last Admin: 03/05/19 21:32 Dose: Not Given Documented by: Nicotine Polacrilex (Nicorette 2mg) 1 piece MT UD PRN PRN Reason: Nicotine Withdrawal Stop: 03/29/19 20:48 Last Admin: 03/05/19 09:20 Dose: 1 piece Documented by: Sodium Chloride ([place] Nasal) 1 - 2 sprays NA PRN PRN PRN Reason: Nasal Dryness/Congestion Stop: 03/29/19 20:23 Post Discharge Appointments Primary Care Physician Name Of Family Doctor: Dr. Sidra Aguilar [facility] Time of Appointment with PCP: Follow up as needed. Provider Appointment Comment: [address] [facility] [place] [address] Psychiatrist Name of Psychiatrist: [facility] - Dr. Casillas Psychiatrist's Date of Appointment with Psychiatrist: 03/14/19 Time of Appointment with Psychiatrist: 9am Psychiatric Appointment Comment: [address] [place] [address] Therapist Name of Therapist: Constanza Vázquez Therapist's Date of Therapist Appointment: 03/07/19 Time of Therapist Appointment: 6pm Therapy Appointment Comment: [facility] [place] [address] [employer] Name of [employer]worker: [employer] Phone Number for [employer]: [phone] Time of Appointment with [employer]worker: Will follow up with you to schedule Case Management Appointment Comment: [address], [place] [address] Contact Information Discharge Discharge [address]: [address] [place] [address] [place] Zavaleta [id number] CPT Code CPT Code 27286 (1) Depression Active/Remission status: currently active Depression Type: major depressive disorder Major depression episode severity: severe Major depression recurrence: recurrent Psychotic features: without psychotic features Qualified Code(s): F33.2 - Major depressive disorder, recurrent severe without psychotic features
[2019-03-06] MEDS: lamoTRIgine 25 MG TAB PO SCH (21:12)
[2019-03-07] MEDS: CITALOPRAM 40 MG TAB PO SCH (08:43)
--- NOTE | 2019-03-07 11:16 | Psychiatric Progress Note ---
Date of Service March 07, 2019 Impression / Recommendations Impression Worsening mood, with more intense and frequent suicidal ideation and urges to self-harm, triggered by discussion of discharge, as patient feels supported in the hospital, but does not feel safe leaving and is worried she will revert to her unhealthy methods of coping, such as drinking and cutting. Encouraged her to explore the barriers to using her outpatient supports and healthy coping skills, and will postpone discharge as she is unable to contract for safety outside of the hospital. Inpatient treatment remains medically necessary due to severity of symptoms and risk for suicide or self-harm if discharged at this time. (1) Suicidal ideation: 02/28 - Admitted to a locked inpatient behavioral health unit, on q15 minute safety checks - Encourage medication initiation/adjustments as indicated - Encourage participation in group and recreational therapies - Gather collateral information from outpatient providers - Suggest family meeting to involve outpatient supports in safety planning - Arrange appropriate aftercare 03/01 - SI ongoing, SIB urges worsened from yesterday 03/02 - SI ongoing 03/04 - SI unresolved. 03/06 - SI worsened from yesterday; associated with elevated desire to self-harm 03/07 -Encourage patient to evaluate her healthy coping skills and outpatient supports and explore barriers to utilizing these, as she has decompensated in the past couple of days in the process of planning for discharge, and discharge has been postponed she does not feel safe returning home. She has been re- referred for case management services, and will meet with her caseworker today on the unit. Explore other options for increased outpatient supports and services, and encouraged her to follow through on her plan to work full-time to increase her daily structure. (2) Depression: 02/28 - Titrate citalopram to 30mg total today by providing an additional 10mg dose - Pt will receive 40mg qAM beginning tomorrow morning - EKG was ordered for tomorrow morning, but accidentally completed today. QTc - wnl; repeat EKG ordered for 03/02/19 once she reaches 40mg daily dosage. - Will hold clonidine during admission and observe blood pressure; low on admission and may not be necessary for her to continue this medication 03/01 - Continue citalopram 40mg qAM - EKG ordered for tomorrow - Continue to encourage healthy and effective coping strategies - Assist patient with ways to add structure and routine to her daily schedule 03/02 - Continue current medication regimen - EKG reviewed - QTc = 403 - Continue to encourage constructive communication with her parents and other outpatient supports 03/03 - Continue current medication regimen 03/04 -Lamotrigine started. 03/07 - Continue citalopram 40 mg daily and lamotrigine 25 mg daily. (3) Borderline personality disorder: 02/28 - Assist patient in development of coping strategies to manage impulsivity and better regulate emotions - Set healthy boundaries and limits during admission; continue education on diagnosis 03/04 - considered treatment options for emotional lability and impulse dyscontrol assoc w/ BPD. she was willing to trial lamictal after review of risks and benefits which included discussion of risk for ania's heraclio syndrome and need for regular compliance. will start 25mg po qhs. if well tolerated, can be further titrated as outpatient. 03/06 - Continue current medication regimen; citalopram 40mg qAM and recently added lamotrigine 25mg - denies side effects presently. (4) Self-injurious behavior: 02/28 - Assist patient with development of healthy and effective coping strategies - Encourage patient to communicate feelings with staff regarding any self- harm urges 03/01 - Encouraged patient to report urges to stay, continue to engage in coping strategies to distract from these urges 03/03 - Ongoing self-harm urges, no specific temptations reported on the unit. - Continues to distract self with various activities 03/06 - Reporting elevated desire to self-harm today (5) Alcohol use disorder: 02/28 -Brief intervention was offered and accepted - though patient does not view her alcohol use as a problem Intervention was greater than 5 min in length. Brief interventions include: 1. Assess Readiness to Quit, 2. Advise: Help Patient to Reduce or Abstain from Alcohol, 3. Agree: Set Specific, Feasible Goals, 4. Assist: Anticipate barriers, Problem-Solving Solutions. Social work to 5. Arrange: Referrals to appropriate treatment. Summary of intervention: The patient is in precontemplation stage with regards to transtheoretical model of change. The patient is advised to decrease alcohol consumption due to depressant effects and risk of interactions with prescription medications. The patient was advised of recommendations for abstinence from alcohol and other abusable substances and to attend substance abuse treatment at discharge, and will be provided with recovery materials to continue to education self on how to cope with their condition without drinking. (6) Cannabis abuse: 02/28 - Continue to educate patient on concerns related to marijuana use in conjunction with psychiatric treatment - Encourage the patient abstain from marijuana usage after discharge (7) Nicotine dependence, cigarettes, uncomplicated: 02/28 - Patient is provided with nicotine gum during admission, recommendation to reduce and ultimately abstaining from tobacco use will not be the primary focus of admission, but should be encouraged Inventory Assets Strengths: Long history with current outpatient providers, willingness to participate in treatment Needs: Appropriate and effective medication adjustments, development of healthy and effective coping strategies, abstaining from substance use Risk Factors Assessment Male: No : Yes Do You Have Access To A Gun?: No Health Problems: No Mental Health Diagnoses: Yes Substance Use Disorders: Yes Previous Attempt: Yes Previous Attempt; Highly Lethal: Yes Previous Attempt; Planned: Yes Family History of Suicide: No Previous Psychiatric Hospitalization: Yes Hopelessness: Yes Smoker: Yes Protective Factors Assessment [employer] Beliefs: No : No Responsible for Young Children: No Employed: Yes Stable Relationships: No Supportive Family: Yes (Though there is also significant tension at times) Good Rapport with Provider: Yes Interval History Identifying Information LIZET GARCIA is a 24-year-old F who currently lives in [place] with her parents and sister with special needs. Pt has a history of borderline personality disorder, depression, and anxiety. Pt was brought to the ED by police on a 302 warrant, with petitioning statement completed by her mother. Pt was admitted on 02/27/19 19:23 on a 201 voluntary commitment for worsening mood and suicidal statements reported. Chief Complaint "Not good". Review of Systems Sleep Information Total Hours of Sleep: 6.5 Meal Information Percent Meal Consumed - Breakfast: 100 Percent Meal Consumed - Lunch: 0 Percent Meal Consumed - Dinner: 100 Nutrition Comment: per meal record Subjective Subjective Patient was seen & assessed and interval progress reviewed with nursing and social work. Staff reports she had a difficult day yesterday, reported worsening suicidal thoughts and urges to self-harm. On my assessment, the patient reports her mood has worsened over the past couple of days, with more intense thoughts of suicide and urges to harm herself. She thinks this was triggered by thinking about discharge, stating she does not feel safe outside of the hospital, and is worried she will revert to substance abuse and self injury as a means to cope. She states she does have some healthy ways to cope, but liseth narvaez does not use them, and is unsure why. She does feel supported by her therapist and caseworker, and is glad to be working with Doreen again, as she worked with her in the past and felt she was understanding. She feels she can be open with these individuals, but not with her family, and says she has not talked to her parents about discharge or returning home. She plans to look for a second job for the summer, she states it is hopeful for her to have more structure. She is not sure how she will deal with the stress of living with her parents, or her peers/friends drinking, stating everyone she knows drinks and does not understand why she would not. She states she does not feel safe leaving the hospital, and is easily overwhelmed when attempting to discuss discharge plans. Physical Exam Psychiatric Orientation: alert, oriented x 3 and cooperative Apperance: appropriately dressed, appropriately groomed and appeared stated age Large ear gauges, numerous linear scars visible on right forearm Eye Contact: + fair eye contact Motor Behavior: steady gait and station and no abnormal motor movements Speech: normal rate/rhythm/volume of speech Affect: + depressed affect and mood congruent with affect Mood: + depressed mood Thought Process: goal directed thought process Thought Content: reality based without delusions Suicidal Thoughts: + reports suicidal thoughts Suicidal thoughts have worsened over the past 1-2 days. Also endorses urges to harm herself, and does not feel safe outside of the hospital. Homicidal Thoughts: denies homicidal thoughts Hallucinations: no auditory hallucinations Cognition: recent memory grossly intact, attention grossly intact and language grossly intact Estimated Intelligence: average estimated intelligence Insight: + impaired insight Judgement: + impaired judgement Vital Signs (Past 24 Hours) Last Vital Signs Temp 36.6 C 03/07/19 06:58 Pulse 71 03/07/19 06:59 Resp 16 03/07/19 06:58 BP 110/75 03/07/19 06:59 Pulse Ox 98 02/27/19 20:31 Results & Data Current Inpatient Medications Current Inpatient Medications: Current Inpatient Medications Acetaminophen (Tylenol) 650 mg PO Q4H PRN PRN Reason: Headache or Minor Fever Stop: 03/29/19 20:23 Last Admin: 03/05/19 09:38 Dose: 650 mg Documented by: Al Hydrox/Mg Hydrox/Simethicone (Maalox) 30 ml PO Q4H PRN PRN Reason: GI Upset Stop: 03/29/19 20:23 Bismuth Subsalicylate (Kaopectate) 15 ml PO PRN PRN PRN Reason: Loose Stool Stop: 03/29/19 20:23 Citalopram Hydrobromide (Celexa) 40 mg PO QAM PRAVEEN Stop: 03/31/19 08:59 Last Admin: 03/07/19 08:43 Dose: 40 mg Documented by: Clonidine HCl (Catapres) 0.05 mg PO BID PRAVEEN Stop: 03/29/19 20:59 Last Admin: 02/28/19 10:06 Dose: Not Given Documented by: Hydroxyzine HCl (Vistaril) 25 mg PO Q4H PRN PRN Reason: Anxiety Stop: 03/29/19 20:23 Hydroxyzine HCl (Vistaril) 50 mg PO HSZ PRN PRN Reason: Insomnia Stop: 03/29/19 20:23 Last Admin: 03/03/19 22:12 Dose: 50 mg Documented by: Lamotrigine (Lamictal) 25 mg PO HS PRAVEEN Stop: 04/03/19 21:59 Last Admin: 03/06/19 21:12 Dose: 25 mg Documented by: Magnesium Hydroxide (Milk Of Magnesia) 30 ml PO DAILY PRN PRN Reason: Heartburn Stop: 03/29/19 20:23 Miscellaneous (Remove Nicoderm Patch) 1 ea N/A HS [facility] Stop: 03/29/19 20:59 Last Admin: 03/06/19 21:13 Dose: Not Given Documented by: Nicotine Polacrilex (Nicorette 2mg) 1 piece MT UD PRN PRN Reason: Nicotine Withdrawal Stop: 03/29/19 20:48 Last Admin: 03/05/19 09:20 Dose: 1 piece Documented by: Sodium Chloride (Lamb Nasal) 1 - 2 sprays NA PRN PRN PRN Reason: Nasal Dryness/Congestion Stop: 03/29/19 20:23 Post Discharge Appointments Primary Care Physician Name Of Family Doctor: Dr. Sidra Tesfaye Primary Care Time of Appointment with PCP: Follow up as needed. Provider Appointment Comment: [address] [place] [address] Psychiatrist Name of Psychiatrist: [facility] Lauren Casillas Psychiatrist's Date of Appointment with Psychiatrist: 03/14/19 Time of Appointment with Psychiatrist: 9am Psychiatric Appointment Comment: [address] [facility] [place] [address] Therapist Name of Therapist: Constanza Ponce Therapist's Date of Therapist Appointment: 03/08/19 Time of Therapist Appointment: 4:00 p.m. [facility] [address] He[facility] Sprayer Name of Heel Sprayer: [facility] Phone Number for Heel Sprayer: [phone] Time of Appointment with Heel Sprayer: Will follow up with you to schedule Case Management Appointment Comment: [address], [place] [address] Contact Information Discharge Discharge Address: [address] [place] [address] [place] [address] CPT Code CPT Code 09891 (1) Depression Depression Type: major depressive disorder Major depression recurrence: recurrent Active/Remission status: currently active Major depression episode severity: severe Psychotic features: without psychotic features Qualified Code(s): F33.2 - Major depressive disorder, recurrent severe without psychotic features
--- NOTE | 2019-03-07 12:38 | Psychiatric Progress Note ---
Date of Service March 05, 2019 Impression / Recommendations Impression Pt remains at high risk of harm if discharged prematurely 1. continue treatment plan unchanged 2. tolerating lamictal well so far. will require slow titration Inventory Assets Strengths: Long history with current outpatient providers, willingness to participate in treatment Needs: Appropriate and effective medication adjustments, development of healthy and effective coping strategies, abstaining from substance use Risk Factors Assessment Male: No : Yes Do You Have Access To A Gun?: No Health Problems: No Mental Health Diagnoses: Yes Substance Use Disorders: Yes Previous Attempt: Yes Previous Attempt; Highly Lethal: Yes Previous Attempt; Planned: Yes Family History of Suicide: No Previous Psychiatric Hospitalization: Yes Hopelessness: Yes Smoker: Yes Protective Factors Assessment Mormonism Beliefs: No : No Responsible for Young Children: No Employed: Yes Stable Relationships: No Supportive Family: Yes (Though there is also significant tension at times) Good Rapport with Provider: Yes Interval History Identifying Information LIZET GARCIA is a 24-year-old F who currently lives in [place] with her parents and sister with special needs. Pt has a history of borderline personality disorder, depression, and anxiety. Pt was brought to the ED by police on a 302 warrant, with petitioning statement completed by her mother. Pt was admitted on 02/27/19 19:23 on a 201 voluntary commitment for worsening mood and suicidal statements reported. Chief Complaint "I was anxious and stressed". Review of Systems Notes c/o latent sleep and waking. denies GI upset Subjective Subjective This note is a late entry for clinical examination and treatment provided 03/05. Patient was seen & assessed and interval progress reviewed with Treatment Team. per nursing, patient disclosed self-injurious impulse on 03/04/2019 and was redirected to use of ice which she reports was triggered by a phone call with her father who had been drinking and her mother upset. Ultimately the visit with her mother later that day went well. she reports suicidal ideation more fleeting and better able to distract herself from it today. She comments that "none self-injurious things seem to make me want to hurt myself even more. It's like I have to go all the way." She denies any side effects or concerns following first dose of Lamictal. Physical Exam Psychiatric Orientation: alert and cooperative Apperance: appeared stated age Eye Contact: + fair eye contact Motor Behavior: steady gait and station Speech: normal rate/rhythm/volume of speech Affect: + depressed affect "a little better" Thought Process: goal directed thought process Thought Content: + preoccupation Suicidal Thoughts: denies suicidal intent; + reports suicidal thoughts Estimated Intelligence: average estimated intelligence Insight: + limited insight Judgement: + limited judgement Vital Signs (Past 24 Hours) Last Vital Signs Temp 36.6 C 03/07/19 06:58 Pulse 71 03/07/19 06:59 Resp 16 03/07/19 06:58 BP 110/75 03/07/19 06:59 Pulse Ox 98 02/27/19 20:31 Results & Data Current Inpatient Medications Current Inpatient Medications: Current Inpatient Medications Acetaminophen (Tylenol) 650 mg PO Q4H PRN PRN Reason: Headache or Minor Fever Stop: 03/29/19 20:23 Last Admin: 03/05/19 09:38 Dose: 650 mg Documented by: Al Hydrox/Mg Hydrox/Simethicone (Maalox) 30 ml PO Q4H PRN PRN Reason: GI Upset Stop: 03/29/19 20:23 Bismuth Subsalicylate (Kaopectate) 15 ml PO PRN PRN PRN Reason: Loose Stool Stop: 03/29/19 20:23 Citalopram Hydrobromide (Celexa) 40 mg PO QAM PRAVEEN Stop: 03/31/19 08:59 Last Admin: 03/07/19 08:43 Dose: 40 mg Documented by: Clonidine HCl (Catapres) 0.05 mg PO BID PRAVEEN Stop: 03/29/19 20:59 Last Admin: 02/28/19 10:06 Dose: Not Given Documented by: Hydroxyzine HCl (Vistaril) 25 mg PO Q4H PRN PRN Reason: Anxiety Stop: 03/29/19 20:23 Hydroxyzine HCl (Vistaril) 50 mg PO HSZ PRN PRN Reason: Insomnia Stop: 03/29/19 20:23 Last Admin: 03/03/19 22:12 Dose: 50 mg Documented by: Lamotrigine (Lamictal) 25 mg PO HS PRAVEEN Stop: 04/03/19 21:59 Last Admin: 03/06/19 21:12 Dose: 25 mg Documented by: Magnesium Hydroxide (Milk Of Magnesia) 30 ml PO DAILY PRN PRN Reason: Heartburn Stop: 03/29/19 20:23 Miscellaneous (Remove Nicoderm Patch) 1 ea N/A HS PRAVEEN Stop: 03/29/19 20:59 Last Admin: 03/06/19 21:13 Dose: Not Given Documented by: Nicotine Polacrilex (Nicorette 2mg) 1 piece MT UD PRN PRN Reason: Nicotine Withdrawal Stop: 03/29/19 20:48 Last Admin: 03/05/19 09:20 Dose: 1 piece Documented by: Sodium Chloride ([place] Nasal) 1 - 2 sprays NA PRN PRN PRN Reason: Nasal Dryness/Congestion Stop: 03/29/19 20:23 Post Discharge Appointments Primary Care Physician Name Of Family Doctor: Dr. Sidra Aguilar [facility] Time of Appointment with PCP: Follow up as needed. Provider Appointment Comment: [address] [facility] [place] [address] Psychiatrist Name of Psychiatrist: [facility] - Dr. Casillas Psychiatrist's Date of Appointment with Psychiatrist: 03/14/19 Time of Appointment with Psychiatrist: 9am Psychiatric Appointment Comment: [address] [facility] [place] [address] Therapist Name of Therapist: Constanza Ponce Therapist's Date of Therapist Appointment: 03/08/19 Time of Therapist Appointment: 4:00 p.m. Therapy Appointment Comment: [address] [place], [place] [address] [address] Molder Punch Name of Molder Punch: [facility] Phone Number for Molder Punch: [phone] Time of Appointment with Molder Punch: Will follow up with you to schedule Case Management Appointment Comment: [address], [place] [address] Contact Information Discharge Discharge Address: [address] [place], [place] [address] [address] CPT Code CPT Code 37237
[2019-03-07] MEDS: NICOTINE POLACRILEX 2 MG GUM MT PRN (19:36)
[2019-03-07] MEDS: lamoTRIgine 25 MG TAB PO SCH (21:48)
[2019-03-08] MEDS: CITALOPRAM 40 MG TAB PO SCH (09:02)
--- NOTE | 2019-03-08 09:47 | Psychiatric Progress Note ---
Date of Service March 08, 2019 Impression / Recommendations Impression Patient is reporting mild improvement in mood, but continues an inability to contract for safety outside of the hospital setting. She does admit to ongoing fleeting self-harm urges and suicidal thoughts. Her family service caseworker is now involved in presenting options to assist with discharge planning. Patient is agreeable to return home with her parents; however, given her ongoing concerns with his living situation it seems reasonable that the patient is requesting additional support at home. Given her significant past history and ongoing suicidal thoughts, it would be beneficial to take the time now to solidify a d ischarge plan the patient is comfortable with. We will attempt to assist with and encourage this process. Discharge prior to the patient being able to contract for safety outside of the hospital with the patient at high risk of harm to self, suicide attempt, or need for readmission. At this time ongoing inpatient psychiatric treatment is medically necessary to mitigate these risk factors and assist patient with adequate safety planning. (1) Suicidal ideation: 02/28 - Admitted to a locked inpatient behavioral health unit, on q15 minute safety checks - Encourage medication initiation/adjustments as indicated - Encourage participation in group and recreational therapies - Gather collateral information from outpatient providers - Suggest family meeting to involve outpatient supports in safety planning - Arrange appropriate aftercare 03/01 - SI ongoing, SIB urges worsened from yesterday 03/02 - SI ongoing 03/04 - SI unresolved. 03/06 - SI worsened from yesterday; associated with elevated desire to self-harm 03/07 -Encourage patient to evaluate her healthy coping skills and outpatient supports and explore barriers to utilizing these, as she has decompensated in the past couple of days in the process of planning for discharge, and discharge has been postponed she does not feel safe returning home. She has been re- referred for case management services, and will meet with her family service caseworker today on the unit. Explore other options for increased outpatient supports and services, and encouraged her to follow through on her plan to work full-time to increase her daily structure. 03/08 - SI fleeting, but unable to contract for safety outside of the hospital. Continue to encourage patient to explore reasonable discharge plans which will increase safety (2) Depression: 02/28 - Titrate citalopram to 30mg total today by providing an additional 10mg dose - Pt will receive 40mg qAM beginning tomorrow morning - EKG was ordered for tomorrow morning, but accidentally completed today. QTc - wnl; repeat EKG ordered for 03/02/19 once she reaches 40mg daily dosage. - Will hold clonidine during admission and observe blood pressure; low on admission and may not be necessary for her to continue this medication 03/01 - Continue citalopram 40mg qAM - EKG ordered for tomorrow - Continue to encourage healthy and effective coping strategies - Assist patient with ways to add structure and routine to her daily schedule 03/02 - Continue current medication regimen - EKG reviewed - QTc = 403 - Continue to encourage constructive communication with her parents and other outpatient supports 03/03 - Continue current medication regimen 03/04 -Lamotrigine started. 03/07 - Continue citalopram 40 mg daily and lamotrigine 25 mg daily. 03/08 - Continue current medication regimen - Encourage further refinement of healthy and effective coping strategies (3) Borderline personality disorder: 02/28 - Assist patient in development of coping strategies to manage impulsivity and better regulate emotions - Set healthy boundaries and limits during admission; continue education on diagnosis 03/04 - considered treatment options for emotional lability and impulse dyscontrol assoc w/ BPD. she was willing to trial lamictal after review of risks and benefits which included discussion of risk for ania's heraclio syndrome and need for regular compliance. will start 25mg po qhs. if well tolerated, can be further titrated as outpatient. 03/06 - Continue current medication regimen; citalopram 40mg qAM and recently added lamotrigine 25mg - denies side effects presently. (4) Self-injurious behavior: 02/28 - Assist patient with development of healthy and effective coping strategies - Encourage patient to communicate feelings with staff regarding any self- harm urges 03/01 - Encouraged patient to report urges to stay, continue to engage in coping strategies to distract from these urges 03/03 - Ongoing self-harm urges, no specific temptations reported on the unit. - Continues to distract self with various activities 03/06 - Reporting elevated desire to self-harm today (5) Alcohol use disorder: 02/28 -Brief intervention was offered and accepted - though patient does not view her alcohol use as a problem Intervention was greater than 5 min in length. Brief interventions include: 1. Assess Readiness to Quit, 2. Advise: Help Patient to Reduce or Abstain from Alcohol, 3. Agree: Set Specific, Feasible Goals, 4. Assist: Anticipate barriers, Problem-Solving Solutions. Social work to 5. Arrange: Referrals to appropriate treatment. Summary of intervention: The patient is in precontemplation stage with regards to transtheoretical model of change. The patient is advised to decrease alcohol consumption due to depressant effects and risk of interactions with prescription medications. The patient was advised of recommendations for abstinence from alcohol and other abusable substances and to attend substance abuse treatment at discharge, and will be provided with recovery materials to continue to education self on how to cope with their condition without drinking. (6) Cannabis abuse: 02/28 - Continue to educate patient on concerns related to marijuana use in conjunction with psychiatric treatment - Encourage the patient abstain from marijuana usage after discharge (7) Nicotine dependence, cigarettes, uncomplicated: 02/28 - Patient is provided with nicotine gum during admission, recommendation to reduce and ultimately abstaining from tobacco use will not be the primary focus of admission, but should be encouraged Inventory Assets Strengths: Long history with current outpatient providers, willingness to participate in treatment Needs: Appropriate and effective medication adjustments, development of healthy and effective coping strategies, abstaining from substance use Risk Factors Assessment Male: No : Yes Do You Have Access To A Gun?: No Health Problems: No Mental Health Diagnoses: Yes Substance Use Disorders: Yes Previous Attempt: Yes Previous Attempt; Highly Lethal: Yes Previous Attempt; Planned: Yes Family History of Suicide: No Previous Psychiatric Hospitalization: Yes Hopelessness: Yes Smoker: Yes Protective Factors Assessment [employer] Beliefs: No : No Responsible for Young Children: No Employed: Yes Stable Relationships: No Supportive Family: Yes (Though there is also significant tension at times) Good Rapport with Provider: Yes Interval History Identifying Information LIZET GARCIA is a 24-year-old F who currently lives in [place] with her parents and sister with special needs. Pt has a history of borderline personality disorder, depression, and anxiety. Pt was brought to the ED by police on a 302 warrant, with petitioning statement completed by her mother. Pt was admitted on 02/27/19 19:23 on a 201 voluntary commitment for worsening mood and suicidal statements reported. Chief Complaint "My parents visited last night. We talked a little bit about housing." Review of Systems Notes Constitutional: reports mild fatigue - vivid dreams last evening Cardiovascular: denied Respiratory: denied Gastrointestinal: denied Neurological: denied Psychiatric: denies symptoms other than stated above Total of at least 10 systems reviewed, pertinent positives as above and in HPI. Sleep Information Total Hours of Sleep: 6.25 Meal Information Percent Meal Consumed - Breakfast: 100 Percent Meal Consumed - Lunch: 100 Percent Meal Consumed - Dinner: 100 Nutrition Comment: per meal record Subjective Subjective Patient was seen & assessed and interval progress reviewed with Treatment Team. Staff states the patient was somewhat isolative yesterday; however, attended some evening groups. Patient received a visit from her family service caseworker yesterday evening, who is planning to increase the frequency of visits with the patient when she is discharged. It was reported that patient's mother did not feel comfortable with the patient being discharged as of their visit last evening. Patient was seen today to assess progress since admission. She states that her morning started out low "like a 2" but mood has improved to "a 4" so far this morning. Patient states that she feels she is getting "closer" but continues to be uncomfortable with the idea of discharge. Patient shares with this provider with different housing options that were discussed with her family service caseworker. Patient states that she does not feel she would be able to contract for safety in an independent living situation. She also is somewhat uncomfortable staying with her parents of being left alone during the day. At this time patient is interested in inviting a close friend to stay at her house several days a week to reduce the amount of time she would be spending alone. Patient had also reported a plan to search for additional employment to have more structure to her day. Although patient appears somewhat brighter than yesterday, she continues to be unable to contract for safety outside of the hospital setting. Suicidal thoughts and self-harm urges are "fleeting" at this time; however, patient is concerned that they would drastically increase if she were discharged prematurely. Patient denies any other specific needs or concerns today. Physical Exam Psychiatric Orientation: alert and oriented x 3 Apperance: appropriately dressed and appropriately groomed Eye Contact: good eye contact Motor Behavior: steady gait and station and no abnormal motor movements Speech: normal rate/rhythm/volume of speech Affect: + blunted affect (Mildly brighter) Mood: + depressed mood and + anxious mood "Closer to a 4 (out of 10)" and "still pretty hopeless" Thought Process: goal directed thought process and clear/coherent thought process Thought Content: reality based without delusions Suicidal Thoughts: + reports suicidal thoughts (fleeting but still present on the unit) Homicidal Thoughts: denies homicidal thoughts Hallucinations: no auditory hallucinations and no visual hallucinations Cognition: attention grossly intact and language grossly intact Estimated Intelligence: consistent with education level Insight: + impaired insight Judgement: + impaired judgement Vital Signs (Past 24 Hours) Last Vital Signs Temp 36.5 C 03/08/19 06:56 Pulse 59 L 03/08/19 06:58 Resp 16 03/08/19 06:56 BP 105/68 03/08/19 06:58 Pulse Ox 98 02/27/19 20:31 Results & Data Current Inpatient Medications Current Inpatient Medications: Current Inpatient Medications Acetaminophen (Tylenol) 650 mg PO Q4H PRN PRN Reason: Headache or Minor Fever Stop: 03/29/19 20:23 Last Admin: 03/05/19 09:38 Dose: 650 mg Documented by: Al Hydrox/Mg Hydrox/Simethicone (Maalox) 30 ml PO Q4H PRN PRN Reason: GI Upset Stop: 03/29/19 20:23 Bismuth Subsalicylate (Kaopectate) 15 ml PO PRN PRN PRN Reason: Loose Stool Stop: 03/29/19 20:23 Citalopram Hydrobromide (Celexa) 40 mg PO QAM PRAVEEN Stop: 03/31/19 08:59 Last Admin: 03/08/19 09:02 Dose: 40 mg Documented by: Clonidine HCl (Catapres) 0.05 mg PO BID PRAVEEN Stop: 03/29/19 20:59 Last Admin: 02/28/19 10:06 Dose: Not Given Documented by: Hydroxyzine HCl (Vistaril) 25 mg PO Q4H PRN PRN Reason: Anxiety Stop: 03/29/19 20:23 Hydroxyzine HCl (Vistaril) 50 mg PO HSZ PRN PRN Reason: Insomnia Stop: 03/29/19 20:23 Last Admin: 03/03/19 22:12 Dose: 50 mg Documented by: Lamotrigine (Lamictal) 25 mg PO HS PRAVEEN Stop: 04/03/19 21:59 Last Admin: 03/07/19 21:48 Dose: 25 mg Documented by: Magnesium Hydroxide (Milk Of Magnesia) 30 ml PO DAILY PRN PRN Reason: Heartburn Stop: 03/29/19 20:23 Miscellaneous (Remove Nicoderm Patch) 1 ea N/A HS PRAVEEN Stop: 03/29/19 20:59 Last Admin: 03/07/19 21:25 Dose: Not Given Documented by: Nicotine Polacrilex (Nicorette 2mg) 1 piece MT UD PRN PRN Reason: Nicotine Withdrawal Stop: 03/29/19 20:48 Last Admin: 03/07/19 19:36 Dose: 1 piece Documented by: Sodium Chloride (Thor Nasal) 1 - 2 sprays NA PRN PRN PRN Reason: Nasal Dryness/Congestion Stop: 03/29/19 20:23 Post Discharge Appointments Primary Care Physician Name Of Family Doctor: Dr. Sidra Aguilar [facility] Time of Appointment with PCP: Follow up as needed. Provider Appointment Comment: [address] [place] [address] Psychiatrist Name of Psychiatrist: [facility] Dr. Casillas Psychiatrist's Date of Appointment with Psychiatrist: 03/14/19 Time of Appointment with Psychiatrist: 9am Psychiatric Appointment Comment: [address] [facility] [place] [address] Therapist Name of Therapist: Constanza Ponce Therapist's Date of Therapist Appointment: 03/08/19 Time of Therapist Appointment: 4:00 p.m. Therapy Appointment Comment: [address] [place], [place] [address] [id number] Tower Hoist Operator Name of Tower Hoist Operator: [facility] Phone Number for Tower Hoist Operator: [phone] Time of Appointment with Tower Hoist Operator: Will follow up with you to schedule Case Management Appointment Comment: [address], [place] [address] Contact Information Discharge Discharge Address: [address] [place], [place] [address] [address] CPT Code CPT Code 13052 (1) Depression Depression Type: major depressive disorder Major depression recurrence: recurrent Active/Remission status: currently active Major depression episode severity: severe Psychotic features: without psychotic features Qualified Code(s): F33.2 - Major depressive disorder, recurrent severe without psychotic features
[2019-03-08] MEDS: NICOTINE POLACRILEX 2 MG GUM MT PRN (10:09)
[2019-03-08] MEDS: lamoTRIgine 25 MG TAB PO SCH (21:34)
[2019-03-09] MEDS: CITALOPRAM 40 MG TAB PO SCH (09:04)
--- NOTE | 2019-03-09 15:22 | Psychiatric Progress Note ---
Date of Service March 09, 2019 Impression / Recommendations Impression Ongoing progress in regard to improvement in mood. Patient continues to struggle at times with fleeting suicidal and self-harm thoughts. She remains able to contract for safety within the hospital; however, feels that if left unsupervised at home she is likely to return to these behaviors and be at higher risk of contemplating suicide. Patient is interested in a discharge early in the weekend, as her parents will be home to adequately supervise for several days. Based on her psychiatric history, impulsive tendencies, inability to currently contract for safety, and history of multiple admissions - it is our recommendation that she remain in a supervised inpatient psychiatric setting to allow for the best safety and discharge planning options available. (1) Suicidal ideation: 02/28 - Admitted to a locked inpatient behavioral health unit, on q15 minute safety checks - Encourage medication initiation/adjustments as indicated - Encourage participation in group and recreational therapies - Gather collateral information from outpatient providers - Suggest family meeting to involve outpatient supports in safety planning - Arrange appropriate aftercare 03/01 - SI ongoing, SIB urges worsened from yesterday 03/02 - SI ongoing 03/04 - SI unresolved. 03/06 - SI worsened from yesterday; associated with elevated desire to self-harm 03/07 -Encourage patient to evaluate her healthy coping skills and outpatient supports and explore barriers to utilizing these, as she has decompensated in the past couple of days in the process of planning for discharge, and discharge has been postponed she does not feel safe returning home. She has been re- referred for case management services, and will meet with her spring encaser today on the unit. Explore other options for increased outpatient supports and services, and encouraged her to follow through on her plan to work full-time to increase her daily structure. 03/08 - SI fleeting, but unable to contract for safety outside of the hospital. Continue to encourage patient to explore reasonable discharge plans which will increase safety (2) Depression: 02/28 - Titrate citalopram to 30mg total today by providing an additional 10mg dose - Pt will receive 40mg qAM beginning tomorrow morning - EKG was ordered for tomorrow morning, but accidentally completed today. QTc - wnl; repeat EKG ordered for 03/02/19 once she reaches 40mg daily dosage. - Will hold clonidine during admission and observe blood pressure; low on admission and may not be necessary for her to continue this medication 03/01 - Continue citalopram 40mg qAM - EKG ordered for tomorrow - Continue to encourage healthy and effective coping strategies - Assist patient with ways to add structure and routine to her daily schedule 03/02 - Continue current medication regimen - EKG reviewed - QTc = 403 - Continue to encourage constructive communication with her parents and other outpatient supports 03/03 - Continue current medication regimen 03/04 -Lamotrigine started. 03/07 - Continue citalopram 40 mg daily and lamotrigine 25 mg daily. 03/08 - Continue current medication regimen - Encourage further refinement of healthy and effective coping strategies 03/09 - Continue current medication regimen: citalopram 40mg and lamotrigine 25mg - Titrate hydroxyzine to 100mg qHS prn - as 50mg was only partially beneficial (3) Borderline personality disorder: 02/28 - Assist patient in development of coping strategies to manage impulsivity a nd better regulate emotions - Set healthy boundaries and limits during admission; continue education on diagnosis 03/04 - considered treatment options for emotional lability and impulse dyscontrol assoc w/ BPD. she was willing to trial lamictal after review of risks and benefits which included discussion of risk for ania's heraclio syndrome and need for regular compliance. will start 25mg po qhs. if well tolerated, can be further titrated as outpatient. 03/06 - Continue current medication regimen; citalopram 40mg qAM and recently added lamotrigine 25mg - denies side effects presently. (4) Self-injurious behavior: 02/28 - Assist patient with development of healthy and effective coping strategies - Encourage patient to communicate feelings with staff regarding any self- harm urges 03/01 - Encouraged patient to report urges to stay, continue to engage in coping strategies to distract from these urges 03/03 - Ongoing self-harm urges, no specific temptations reported on the unit. - Continues to distract self with various activities 03/06 - Reporting elevated desire to self-harm today (5) Alcohol use disorder: 02/28 -Brief intervention was offered and accepted - though patient does not view her alcohol use as a problem Intervention was greater than 5 min in length. Brief interventions include: 1. Assess Readiness to Quit, 2. Advise: Help Patient to Reduce or Abstain from Alcohol, 3. Agree: Set Specific, Feasible Goals, 4. Assist: Anticipate barriers, Problem-Solving Solutions. Social work to 5. Arrange: Referrals to appropriate treatment. Summary of intervention: The patient is in precontemplation stage with regards to transtheoretical model of change. The patient is advised to decrease alcohol consumption due to depressant effects and risk of interactions with prescription medications. The patient was advised of recommendations for abstinence from alcohol and other abusable substances and to attend substance abuse treatment at discharge, and will be provided with recovery materials to continue to education self on how to cope with their condition without drinking. (6) Cannabis abuse: 02/28 - Continue to educate patient on concerns related to marijuana use in conjunction with psychiatric treatment - Encourage the patient abstain from marijuana usage after discharge (7) Nicotine dependence, cigarettes, uncomplicated: 02/28 - Patient is provided with nicotine gum during admission, recommendation to reduce and ultimately abstaining from tobacco use will not be the primary focus of admission, but should be encouraged Inventory Assets Strengths: Long history with current outpatient providers, willingness to participate in treatment Needs: Appropriate and effective medication adjustments, development of healthy and effective coping strategies, abstaining from substance use Risk Factors Assessment Male: No : Yes Do You Have Access To A Gun?: No Health Problems: No Mental Health Diagnoses: Yes Substance Use Disorders: Yes Previous Attempt: Yes Previous Attempt; Highly Lethal: Yes Previous Attempt; Planned: Yes Family History of Suicide: No Previous Psychiatric Hospitalization: Yes Hopelessness: Yes Smoker: Yes Protective Factors Assessment Oriental Orthodox Beliefs: No : No Responsible for Young Children: No Employed: Yes Stable Relationships: No Supportive Family: Yes (Though there is also significant tension at times) Good Rapport with Provider: Yes Interval History Identifying Information LIZET GRACIA is a 24-year-old F who currently lives in [place] with her parents and sister with special needs. Pt has a history of borderline personality disorder, depression, and anxiety. Pt was brought to the ED by police on a 302 warrant, with petitioning statement completed by her mother. Pt was admitted on 02/27/19 19:23 on a 201 voluntary commitment for worsening mood and suicidal statements reported. Chief Complaint "Feeling pretty good." Review of Systems Notes Constitutional: reports difficulty falling asleep, difficulty staying asleep Cardiovascular: denied Respiratory: denied Gastrointestinal: denied Neurological: denied Psychiatric: denies symptoms other than stated above Total of at least 10 systems reviewed, pertinent positives as above and in HPI. Sleep Information Total Hours of Sleep: 5.25 Meal Information Percent Meal Consumed - Breakfast: 100 Percent Meal Consumed - Lunch: 100 Percent Meal Consumed - Dinner: 100 Nutrition Comment: per meal record Subjective Subjective Patient was seen & assessed and interval progress reviewed with Nursing. Staff reports the patient has been interactive in group programming and has been demonstrating a somewhat brighter affect. Patient was seen today to assess progress since admission. She states that she is "feeling good." Patient states that she has had some difficulty falling asleep and remaining asleep for the night. She states that trazodone has worked well for her sister, and is interested in discussing this further with this provider. We reviewed that she had requested and received a as needed dose of hydroxyzine earlier in her stay. Patient states that this was helpful in allowing her to remain asleep, but was not overly beneficial and causing her to feel sedated. Patient was offered a higher dose of hydroxyzine, or this provider was willing to have a conversation about trazodone. Patient reports willingness to try 100 mg of hydroxyzine for the night, and will report back with observations. Patient states that she feels she is benefiting from the initiation of lamotrigine "even though it has only been a few days", as she states her mood is "neutralbut that is a good thing." Patient feels that a neutral mood is an improvement for her, she feels medication is preventing her from slipping into deep depressive states. Patient is hopeful that ongoing titration of the medication will provide even more benefits. Patient denies other needs or concerns at this time, continuing to request a weekend discharge as she feels this will most likely allow her to be able to contract for safety outside of the hospital setting. Physical Exam Psychiatric Orientation: alert, oriented x 3 and cooperative Apperance: appropriately dressed and appropriately groomed Eye Contact: good eye contact Motor Behavior: steady gait and station and no abnormal motor movements Speech: normal rate/rhythm/volume of speech Affect: euthymic affect Mood: no depressed mood "Neutralbut that is a good thing" Thought Process: goal directed thought process, linear/logical thought process and clear/coherent thought process Thought Content: reality based without delusions Suicidal Thoughts: denies suicidal thoughts (But is unable to contract for safety outside of the hospital on a weekday) Homicidal Thoughts: denies homicidal thoughts Hallucinations: no auditory hallucinations and no visual hallucinations Cognition: attention grossly intact and language grossly intact Estimated Intelligence: consistent with education level Insight: + limited insight Judgement: + limited judgement Vital Signs (Past 24 Hours) Last Vital Signs Temp 36.5 C 03/09/19 06:59 Pulse 71 03/09/19 07:02 Resp 16 03/09/19 06:59 BP 96/60 L 03/09/19 07:02 Pulse Ox 98 02/27/19 20:31 Results & Data Current Inpatient Medications Current Inpatient Medications: Current Inpatient Medications Acetaminophen (Tylenol) 650 mg PO Q4H PRN PRN Reason: Headache or Minor Fever Stop: 03/29/19 20:23 Last Admin: 03/05/19 09:38 Dose: 650 mg Documented by: Al Hydrox/Mg Hydrox/Simethicone (Maalox) 30 ml PO Q4H PRN PRN Reason: GI Upset Stop: 03/29/19 20:23 Bismuth Subsalicylate (Kaopectate) 15 ml PO PRN PRN PRN Reason: Loose Stool Stop: 03/29/19 20:23 Citalopram Hydrobromide (Celexa) 40 mg PO QAM PRAVEEN Stop: 03/31/19 08:59 Last Admin: 03/09/19 09:04 Dose: 40 mg Documented by: Hydroxyzine HCl (Vistaril) 25 mg PO Q4H PRN PRN Reason: Anxiety Stop: 03/29/19 20:23 Hydroxyzine HCl (Vistaril) 100 mg PO HSZ PRN PRN Reason: Insomnia Stop: 03/29/19 20:23 Lamotrigine (Lamictal) 25 mg PO HS PRAVEEN Stop: 04/03/19 21:59 Last Admin: 03/08/19 21:34 Dose: 25 mg Documented by: Magnesium Hydroxide (Milk Of Magnesia) 30 ml PO DAILY PRN PRN Reason: Heartburn Stop: 03/29/19 20:23 Miscellaneous (Remove Nicoderm Patch) 1 ea N/A HS PRAVEEN Stop: 03/29/19 20:59 Last Admin: 03/08/19 21:36 Dose: Not Given Documented by: Nicotine Polacrilex (Nicorette 2mg) 1 piece MT UD PRN PRN Reason: Nicotine Withdrawal Stop: 03/29/19 20:48 Last Admin: 03/08/19 10:09 Dose: 1 piece Documented by: Sodium Chloride ([place] Nasal) 1 - 2 sprays NA PRN PRN PRN Reason: Nasal Dryness/Congestion Stop: 03/29/19 20:23 Post Discharge Appointments Primary Care Physician Name Of Family Doctor[facility] Time of Appointment with PCP: Follow up as needed. Provider Appointment Comment: [address] [facility] [place] [place] [address] Psychiatrist Name of Psychiatrist: [facility] - Dr. Casillas Psychiatrist's Date of Appointment with Psychiatrist: 03/14/19 Time of Appointment with Psychiatrist: 9am Psychiatric Appointment Comment: [address] [facility] [place] [address] Therapist Name of Therapist: Constanza Aguilar LM x2 Therapist's Date of Therapist Appointment: 03/08/19 Time of Therapist Appointment: 4:00 p.m. [facility] [address] [facility] [address] [employer] Name of De[employer]hand [employer]: [facility] Phone Number for [employer]: [phone] Time of Appointment with De[employer]: Will follow up with you to schedule Case Management Appointment Comment: [address], [place] [address] Contact Information Discharge Discharge [address]: [address] [place] [address] [place] [id number] CPT Code CPT Code 74028 (1) Depression Active/Remission status: currently active Depression Type: major depressive disorder Major depression episode severity: severe Major depression recurrence: recurrent Psychotic features: without psychotic features Qualified Code(s): F33.2 - Major depressive disorder, recurrent severe without psychotic features
[2019-03-09] MEDS: ACETAMINOPHEN 325 MG TAB PO PRN (17:34)
[2019-03-09] MEDS: lamoTRIgine 25 MG TAB PO SCH (21:15)
[2019-03-10] MEDS: CITALOPRAM 40 MG TAB PO SCH (09:08)
[2019-03-10] MEDS: NICOTINE POLACRILEX 2 MG GUM MT PRN (10:18)
--- NOTE | 2019-03-10 10:56 | Psychiatric Progress Note ---
Date of Service March 10, 2019 Impression / Recommendations Impression Pt appearing bright and interactive today. She reports SI and self-harm urges as chronic, but fleeting and not distressing at this time. She is able to contract for safety outside of the hospital setting only if discharged to her parents for the weekend. She has been taking an active role in safety and discharge planning. Seems appropriate for discharge tomorrow if improvements remain consistent. Based on her psychiatric history, impulsive tendencies, inability to contract for safety if discharged today, and history of multiple admissions - it is our recommendation that she remain in a supervised inpatient psychiatric setting to allow her to be discharged to the supervision of her parents. (1) Suicidal ideation: 02/28 - Admitted to a locked inpatient behavioral health unit, on q15 minute safety checks - Encourage medication initiation/adjustments as indicated - Encourage participation in group and recreational therapies - Gather collateral information from outpatient providers - Suggest family meeting to involve outpatient supports in safety planning - Arrange appropriate aftercare 03/01 - SI ongoing, SIB urges worsened from yesterday 03/02 - SI ongoing 03/04 - SI unresolved. 03/06 - SI worsened from yesterday; associated with elevated desire to self-harm 03/07 -Encourage patient to evaluate her healthy coping skills and outpatient sup ports and explore barriers to utilizing these, as she has decompensated in the past couple of days in the process of planning for discharge, and discharge has been postponed she does not feel safe returning home. She has been re-referred for case management services, and will meet with her bottle caser today on the unit. Explore other options for increased outpatient supports and services, and encouraged her to follow through on her plan to work full-time to increase her daily structure. 03/08 - SI fleeting, but unable to contract for safety outside of the hospital. Continue to encourage patient to explore reasonable discharge plans which will increase safety 03/10 - Chronic history of SI and self-harm urges. Continue to be fleeting thoughts. Able to contract for safety if discharged to parents tomorrow. States she is now "scared of again." (2) Depression: 02/28 - Titrate citalopram to 30mg total today by providing an additional 10mg dose - Pt will receive 40mg qAM beginning tomorrow morning - EKG was ordered for tomorrow morning, but accidentally completed today. QTc - wnl; repeat EKG ordered for 03/02/19 once she reaches 40mg daily dosage. - Will hold clonidine during admission and observe blood pressure; low on admission and may not be necessary for her to continue this medication 03/01 - Continue citalopram 40mg qAM - EKG ordered for tomorrow - Continue to encourage healthy and effective coping strategies - Assist patient with ways to add structure and routine to her daily schedule 03/02 - Continue current medication regimen - EKG reviewed - QTc = 403 - Continue to encourage constructive communication with her parents and other outpatient supports 03/03 - Continue current medication regimen 03/04 -Lamotrigine started. 03/06 - Continue current medication regimen; citalopram 40mg qAM and recently added lamotrigine 25mg - denies side effects presently. 03/07 - Continue citalopram 40 mg daily and lamotrigine 25 mg daily. 03/08 - Continue current medication regimen - Encourage further refinement of healthy and effective coping strategies 03/09 - Continue current medication regimen: citalopram 40mg and lamotrigine 25mg - Titrate hydroxyzine to 100mg qHS prn - as 50mg was only partially beneficial 03/10 - Continue current medication regimen (3) Borderline personality disorder: 02/28 - Assist patient in development of coping strategies to manage impulsivity and better regulate emotions - Set healthy boundaries and limits during admission; continue education on diagnosis 03/04 - considered treatment options for emotional lability and impulse dyscontrol assoc w/ BPD. she was willing to trial lamictal after review of risks and benefits which included discussion of risk for ania's heraclio syndrome and need for regular compliance. will start 25mg po qhs. if well tolerated, can be further titrated as outpatient. (4) Self-injurious behavior: 02/28 - Assist patient with development of healthy and effective coping strategies - Encourage patient to communicate feelings with staff regarding any self- harm urges 03/01 - Encouraged patient to report urges to stay, continue to engage in coping strategies to distract from these urges 03/03 - Ongoing self-harm urges, no specific temptations reported on the unit. - Continues to distract self with various activities 03/06 - Reporting elevated desire to self-harm today 03/10 - Chronic history of self-harm urges, able to use coping strategies to resist urge (5) Alcohol use disorder: 02/28 -Brief intervention was offered and accepted - though patient does not view her alcohol use as a problem Intervention was greater than 5 min in length. Brief interventions include: 1. Assess Readiness to Quit, 2. Advise: Help Patient to Reduce or Abstain from Alcohol, 3. Agree: Set Specific, Feasible Goals, 4. Assist: Anticipate barriers, Problem-Solving Solutions. Social work to 5. Arrange: Referrals to appropriate treatment. Summary of intervention: The patient is in precontemplation stage with regards to transtheoretical model of change. The patient is advised to decrease alcohol consumption due to depressant effects and risk of interactions with prescription medications. The patient was advised of recommendations for abstinence from alcohol and other abusable substances and to attend substance abuse treatment at discharge, and will be provided with recovery materials to continue to education self on how to cope with their condition without drinking. 03/10 - Devised safety plan to help her cope with likely exposure to alcohol over weekend - Mother was supportive and willing to assist - Continue to encourage sobriety after discharge (6) Cannabis abuse: 02/28 - Continue to educate patient on concerns related to marijuana use in conjunction with psychiatric treatment - Encourage the patient abstain from marijuana usage after discharge (7) Nicotine dependence, cigarettes, uncomplicated: 02/28 - Patient is provided with nicotine gum during admission, recommendation to reduce and ultimately abstaining from tobacco use will not be the primary focus of admission, but should be encouraged Inventory Assets Strengths: Long history with current outpatient providers, willingness to participate in treatment Needs: Appropriate and effective medication adjustments, development of healthy and effective coping strategies, abstaining from substance use Risk Factors Assessment Male: No : Yes Do You Have Access To A Gun?: No Health Problems: No Mental Health Diagnoses: Yes Substance Use Disorders: Yes Previous Attempt: Yes Previous Attempt; Highly Lethal: Yes Previous Attempt; Planned: Yes Family History of Suicide: No Previous Psychiatric Hospitalization: Yes Hopelessness: Yes Smoker: Yes Protective Factors Assessment Temple Beliefs: No : No Responsible for Young Children: No Employed: Yes Stable Relationships: No Supportive Family: Yes (Though there is also significant tension at times) Good Rapport with Provider: Yes Interval History Identifying Information LIZET GARCIA is a 24-year-old F who currently lives in [place] with her parents and sister with special needs. Pt has a history of borderline personality disorder, depression, and anxiety. Pt was brought to the ED by police on a 302 warrant, with petitioning statement completed by her mother. Pt was admitted on 02/27/19 19:23 on a 201 voluntary commitment for worsening mood and suicidal statements reported. Chief Complaint "I called my parents already today. My dad said he's excited to have me home." Review of Systems Notes Constitutional: denied Cardiovascular: denied Respiratory: denied Gastrointestinal: denied Neurological: denied Psychiatric: denies symptoms other than stated above Total of at least 10 systems reviewed, pertinent positives as above and in HPI. Sleep Information Total Hours of Sleep: 6.5 Meal Information Percent Meal Consumed - Breakfast: 100 Percent Meal Consumed - Lunch: 100 Percent Meal Consumed - Dinner: 100 Nutrition Comment: per meal record Subjective Subjective Patient was seen & assessed and interval progress reviewed with Treatment Team. Staff reports the patient appears to be doing well, interacting with peers and attending groups. Pt was seen today to assess progress since admission. Pt states she is "pretty good" today. She is still planning to discharge tomorrow, to allow for support from her parents over the weekend. Pt states she spoke with her mother today, as she was worried about her extended family's Memorial Day constitution party, and the likelihood of alcohol being present. Pt states she devised a "mini-safety plan" in which she confirmed her mother would talk her through any urges to use, and she is also comforted by the fact that there will be cats around - giving her the opportunity to use them as a coping strategy if necessary. Pt feels most comfortable knowing her parents will be off work for the next 4 days and will be able to assist the patient in adding structure to her day. Pt admits to fleeting thoughts to self harm or end her life, but states, "I don't get into them now. I'm back at the point that I'm afraid of again, so that's helpful." Pt denies other needs or concerns today. Physical Exam Psychiatric Orientation: alert, oriented x 3 and cooperative Apperance: appropriately dressed and appropriately groomed Eye Contact: good eye contact Motor Behavior: steady gait and station and no abnormal motor movements Speech: normal rate/rhythm/volume of speech Affect: euthymic affect Mood: no depressed mood and no anxious mood "Pretty good" Thought Process: goal directed thought process, linear/logical thought process and clear/coherent thought process Thought Content: reality based without delusions Suicidal Thoughts: denies suicidal thoughts (fleeting passive thoughts to self- harm or end life), denies suicidal plan and denies suicidal intent Homicidal Thoughts: denies homicidal thoughts Hallucinations: no auditory hallucinations and no visual hallucinations Cognition: recent memory grossly intact, remote memory grossly intact, attention grossly intact and language grossly intact Estimated Intelligence: consistent with education level Insight: + fair insight Judgement: + fair judgement Vital Signs (Past 24 Hours) Last Vital Signs Temp 36.4 C L 03/10/19 06:28 Pulse 72 03/10/19 06:29 Resp 16 03/10/19 06:28 BP 118/67 03/10/19 06:29 Pulse Ox 98 02/27/19 20:31 Results & Data Current Inpatient Medications Current Inpatient Medications: Current Inpatient Medications Acetaminophen (Tylenol) 650 mg PO Q4H PRN PRN Reason: Headache or Minor Fever Stop: 03/29/19 20:23 Last Admin: 03/09/19 17:34 Dose: 650 mg Documented by: Al Hydrox/Mg Hydrox/Simethicone (Maalox) 30 ml PO Q4H PRN PRN Reason: GI Upset Stop: 03/29/19 20:23 Bismuth Subsalicylate (Kaopectate) 15 ml PO PRN PRN PRN Reason: Loose Stool Stop: 03/29/19 20:23 Citalopram Hydrobromide (Celexa) 40 mg PO QAM PRAVEEN Stop: 03/31/19 08:59 Last Admin: 03/10/19 09:08 Dose: 40 mg Documented by: Hydroxyzine HCl (Vistaril) 25 mg PO Q4H PRN PRN Reason: Anxiety Stop: 03/29/19 20:23 Hydroxyzine HCl (Vistaril) 100 mg PO HSZ PRN PRN Reason: Insomnia Stop: 03/29/19 20:23 Last Admin: 03/09/19 22:05 Dose: 100 mg Documented by: Lamotrigine (Lamictal) 25 mg PO HS PRAVEEN Stop: 04/03/19 21:59 Last Admin: 03/09/19 21:15 Dose: 25 mg Documented by: Magnesium Hydroxide (Milk Of Magnesia) 30 ml PO DAILY PRN PRN Reason: Heartburn Stop: 03/29/19 20:23 Miscellaneous (Remove Nicoderm Patch) 1 ea N/A HS PRAVEEN Stop: 03/29/19 20:59 Last Admin: 03/09/19 21:15 Dose: Not Given Documented by: Nicotine Polacrilex (Nicorette 2mg) 1 piece MT UD PRN PRN Reason: Nicotine Withdrawal Stop: 03/29/19 20:48 Last Admin: 03/10/19 10:18 Dose: 1 piece Documented by: Sodium Chloride ([place] Nasal) 1 - 2 sprays NA PRN PRN PRN Reason: Nasal Dryness/Congestion Stop: 03/29/19 20:23 Post Discharge Appointments Primary Care Physician Name Of Family Doctor: Dr. Sidra Benedict [facility] Time of Appointment with PCP: Follow up as needed. Provider Appointment Comment[facility] [address] [facility] [place] [address] Psychiatrist Name of Psychiatrist: [facility] Lauren Casillas Psychiatrist's Date of Appointment with Psychiatrist: 03/14/19 Time of Appointment with Psychiatrist: 9am Psychiatric Appointment Comment: [address] [facility] [facility] [place] [id number] Therapist Name of Therapist: Constanza Aguilar LM x2 Therapist's Date of Therapist Appointment: 03/08/19 Time of Therapist Appointment: 4:00 p.m. Therapy Appointment Comment: [address] [place] [address] [place] [address] Rock Picker Name of Rock Picker: [facility] Phone Number for Rock Picker: [phone] Time of Appointment with Rock Picker: Will follow up with you to schedule Case Management Appointment Comment: [address], [place] [address] Contact Information Discharge Discharge Address: [address] [place] [address] [place] [id number] CPT Code CPT Code 99608 (1) Depression Active/Remission status: currently active Depression Type: major depressive disorder Major depression episode severity: severe Major depression recurrence: recurrent Psychotic features: without psychotic features Qualified Code(s): F33.2 - Major depressive disorder, recurrent severe without psychotic features
[2019-03-10] MEDS: lamoTRIgine 25 MG TAB PO SCH (21:34)
--- NOTE | 2019-03-11 08:48 | Psychiatric Progress Note ---
Date of Service March 11, 2019 Impression / Recommendations Impression Pt appearing bright and interactive today. She reports SI and self-harm urges as chronic, but fleeting and not distressing at this time. She is able to contract for safety outside of the hospital setting only if discharged to her parents for the weekend. She has been taking an active role in safety and discharge planning. Seems appropriate for discharge tomorrow if improvements remain consistent. Based on her psychiatric history, impulsive tendencies, inability to contract for safety if discharged today, and history of multiple admissions - it is our recommendation that she remain in a supervised inpatient psychiatric setting to allow her to be discharged to the supervision of her parents. Inventory Assets Strengths: Long history with current outpatient providers, willingness to participate in treatment Needs: Appropriate and effective medication adjustments, development of healthy and effective coping strategies, abstaining from substance use Risk Factors Assessment Male: No : Yes Do You Have Access To A Gun?: No Health Problems: No Mental Health Diagnoses: Yes Substance Use Disorders: Yes Previous Attempt: Yes Previous Attempt; Highly Lethal: Yes Previous Attempt; Planned: Yes Family History of Suicide: No Previous Psychiatric Hospitalization: Yes Hopelessness: Yes Smoker: Yes Protective Factors Assessment [place] Beliefs: No : No Responsible for Young Children: No Employed: Yes Stable Relationships: No Supportive Family: Yes (Though there is also significant tension at times) Good Rapport with Provider: Yes Interval History Identifying Information LIZET GARCIA is a 24-year-old F who currently lives in [place] with her parents and sister with special needs. Pt has a history of borderline personality disorder, depression, and anxiety. Pt was brought to the ED by police on a 302 warrant, with petitioning statement completed by her mother. Pt was admitted on 02/27/19 19:23 on a 201 voluntary commitment for worsening mood and suicidal statements reported. Chief Complaint "[]". Review of Systems Sleep Information Total Hours of Sleep: 6.25 Sleep Comments: received a prn dose of vistaril for sleep aid Meal Information Percent Meal Consumed - Breakfast: 100 Percent Meal Consumed - Lunch: 100 Percent Meal Consumed - Dinner: 100 Nutrition Comment: per meal record Subjective Subjective Patient was seen & assessed and interval progress reviewed with Treatment Team Physical Exam Psychiatric Orientation: alert, oriented x 3 and cooperative Apperance: appropriately dressed, appropriately groomed, + disheveled (As patient was awoken from sleep) and appeared stated age Eye Contact: good eye contact and + fair eye contact Motor Behavior: steady gait and station, no abnormal motor movements and + psychomotor agitation (hakes legs while speaking); n tremor Speech: normal rate/rhythm/volume of speech Affect: euthymic affect, + depressed affect, + flat affect, + blunted affect (Mildly brighter), + constricted affect and mood congruent with affect Mood: no depressed mood and no anxious mood Thought Process: goal directed thought process, linear/logical thought process and clear/coherent thought process Thought Content: + preoccupation, + cognitive distortions, reality based without delusions, + hopelessness, + worthlessness and + loneliness; no delusions Suicidal Thoughts: denies suicidal thoughts (fleeting passive thoughts to self- harm or end life), denies suicidal plan and denies suicidal intent Homicidal Thoughts: denies homicidal thoughts Hallucinations: no auditory hallucinations and no visual hallucinations Cognition: recent memory grossly intact, remote memory grossly intact, attention grossly intact and language grossly intact Estimated Intelligence: average estimated intelligence and consistent with education level Insight: + limited insight, + impaired insight and + fair insight Judgement: + limited judgement, + impaired judgement and + fair judgement Vital Signs (Past 24 Hours) Last Vital Signs Temp 36.6 C 03/11/19 06:46 Pulse 56 L 03/11/19 06:47 Resp 16 03/11/19 06:46 BP 103/72 03/11/19 06:47 Pulse Ox 98 02/27/19 20:31 Results & Data Current Inpatient Medications Current Inpatient Medications: Current Inpatient Medications Acetaminophen (Tylenol) 650 mg PO Q4H PRN PRN Reason: Headache or Minor Fever Stop: 03/29/19 20:23 Last Admin: 03/09/19 17:34 Dose: 650 mg Documented by: Al Hydrox/Mg Hydrox/Simethicone (Maalox) 30 ml PO Q4H PRN PRN Reason: GI Upset Stop: 03/29/19 20:23 Bismuth Subsalicylate (Kaopectate) 15 ml PO PRN PRN PRN Reason: Loose Stool Stop: 03/29/19 20:23 Citalopram Hydrobromide (Celexa) 40 mg [facility] [place] Stop: 03/31/19 08:59 Last Admin: 03/10/19 09:08 Dose: 40 mg Documented by: Hydroxyzine HCl (Vistaril) 25 mg PO Q4H PRN PRN Reason: Anxiety Stop: 03/29/19 20:23 Hydroxyzine HCl (Vistaril) 100 mg PO HSZ PRN PRN Reason: Insomnia Stop: 03/29/19 20:23 Last Admin: 03/10/19 22:12 Dose: 100 mg Documented by: Lamotrigine (Lamictal) 25 mg PO HS PRAVEEN Stop: 04/03/19 21:59 Last Admin: 03/10/19 21:34 Dose: 25 mg Documented by: Magnesium Hydroxide (Milk Of Magnesia) 30 ml PO DAILY PRN PRN Reason: Heartburn Stop: 03/29/19 20:23 Miscellaneous (Remove Nicoderm Patch) 1 ea N/A HS [facility] Stop: 03/29/19 20:59 Last Admin: 03/10/19 21:35 Dose: Not Given Documented by: Nicotine Polacrilex (Nicorette 2mg) 1 piece MT UD PRN PRN Reason: Nicotine Withdrawal Stop: 03/29/19 20:48 Last Admin: 03/10/19 10:18 Dose: 1 piece Documented by: Sodium Chloride ([place] Nasal) 1 - 2 sprays NA PRN PRN PRN Reason: Nasal Dryness/Congestion Stop: 03/29/19 20:23 Post Discharge Appointments Primary Care Physician Name Of Family Doctor: Dr. Sidra Benedict [facility] Time of Appointment with PCP: Follow up as needed. Provider Appointment Comment: [address] [facility] [place] [address] Psychiatrist Name of Psychiatrist: [facility] - Dr. Casillas Psychiatrist's Date of Appointment with Psychiatrist: 03/14/19 Time of Appointment with Psychiatrist: 9 am Psychiatric Appointment Comment: [address] [facility] [place] [address] Therapist Name of Therapist: Constanza Fan will schedule this appt on Wednesday Therapist's Date of Therapist Appointment: 03/08/19 Time of Therapist Appointment: 4:00 p.m. Therapy Appointment Comment: [address] [place] [id number] Life Insurance Specialist Name of Life Insurance Specialist: [employer] [facility] Phone Number for Life Insurance Specialist: [phone] Date of Appointment with Life Insurance Specialist: 03/15/19 Time of Appointment with Life Insurance Specialist: 3:30 p.m. Case Management Appointment Comment: Will see you at your house Contact Information Discharge Discharge Address: [address] [place], [place] [address] [address] CPT Code CPT Code 18493 [id number]
[2019-03-11] MEDS: CITALOPRAM 40 MG TAB PO SCH (09:14)
--- NOTE | 2019-03-11 09:37 | Discharge Summary ---
Date of Service March 11, 2019 Day of DIscharge Asssement: THe patient states she is feeling "better than when I came in" "more confident" She feels "more able to fight my self-injury thoughts and not feeling the suicidal thoughts as often." She shares that she feels ready to go home. SHe shares about the difficult call last evening where her father tried to connect but the words her shared were not helpful and somewhat distressing about moving on after theoretical loss. Mother noted she would support patient in trying not to drinnk as mother does not drink this weekend. SHe noted overall she feels able to manage her disappointment and negative feelings from that conversation and is not feeling depressed at this time. SHe denies active SI, intention or plan, and nina SIB at this time. She is future oriented and verbalizes ways she plans to cope this weekend at home and avoid alcohol as a part of that plan. She does not wish to discuss nicotine cesaation at this time but was wiling to discuss naltrexone for alcohol abstinence promotion and we discussed the r/b/se/a and reveiwed her admission labs, and need for f/u labs. She reports anxiety is low and denies acute concerns at this time. Discussed each medication and her discharge packet information. DIscussed f/u care, and safety plan. SHe notes she is sleeping well on hydroxyzine 100mg and denies side effects, discussed adavancing lamictal to 50mg for a week, and following titration with Dr Rudolph. Ingrid denies physical concerns on ROS. History of Present Illness Karson Manning is a 24-year-old female admitted voluntarily for inpatient psychiatric treatment due to reports of worsening mood and confessing suicidal ideation to her mother prior to admission. Patient was last treated on our unit in March 2018, she admits that she was discharged from the [facility] 1 month ago. Patient shares with this provider that she was "302'd" by her mother, and she is extremely upset about this. Patient did end up signing in voluntarily for treatment after she was brought to the emergency department by police. Patient reports that she had an appointment prior to admission in which, "the doctor threatened to stop my medications if I did not stop drinking so heavily." The patient states this was upsetting to her, so she decided to call her mother. Patient admits that she reported SI on the phone, and then had taken a nap. The patient states she was sleeping when her mother attempted to reach out to her again. The patient did not text back the patient's mother was reportedly concerned and eventually a 302 warrant was completed to check on the patient's safety, and bring her to the ED for evaluation. The patient states that at the time of their phone conversation the patient was not actively planning an attempt to end her life however "the night before I was thinking about it." The patient states to this provider "it failed twice, if I want to do it again it has to be something that I think will work - like hanging." When asked if the patient's suicidality was ongoing on admission, she states "the suicidal thoughts are way higher since she [mom] did this to me, now just makes me want to go home and end my life even more." Patient states that her suicidality began in her teens, along with urges to felix f-harm by cutting. Suicidal thoughts are chronic; however, worsened during periods of intense stress. The patient does admit that she had a "hard semester". She also reports stressors of: managing finances, attempting to find a second job, and anxiety in the context of social interactions. Patient endorses depressive symptoms of low energy, restless sleep, decreased motivation, hopelessness, and worthlessness. The patient states there were several classes that she had skipped this last semester due to depressive symptoms. Patient states that anxiety has been relatively high recently and she does endorse episodes of anxiety attacks, which are characterized by emotional crying, "shutting down", shortness of breath, and urges to harm herself. Patient states her last episode of self-harm was a month ago. Patient was admitted to the [facility] in the last month for similar concerns. She states that during this admission when he discontinued sertraline, which she had been on for several years. At that time they had initiated citalopram. Patient states there was concern for elevated blood pressure, which explains the addition of clonidine according to her awareness. Patient does feel that the medication changes were helpful initially; however, has found these effects to be reduced recently. Patient does admit to chronic alcohol use, consuming 8 or more drinks on average about 4-5 days/week. Patient states that she does not believe she has ever been through alcohol withdrawal previously. She also regularly uses marijuana, and smokes 4-5 cigarettes/day. Pt denies HI, A/V hallucinations, paranoia, melvina/hypomania, other symptoms more suggestive of a bipolar presentation, OCD, PTSD, eating disorder, and other specific psychiatric symptoms. Physical Exam Psychiatric Orientation: alert, oriented x 3 and cooperative Apperance: appropriately dressed, appropriately groomed, + disheveled (As patient was awoken from sleep) and appeared stated age Eye Contact: good eye contact and + fair eye contact Motor Behavior: steady gait and station and no abnormal motor movements; n tremor Speech: normal rate/rhythm/volume of speech Affect: euthymic affect, + blunted affect (Mildly brighter) and mood congruent with affect Mood: no depressed mood and no anxious mood Thought Process: goal directed thought process, linear/logical thought process and clear/coherent thought process Thought Content: reality based without delusions; no delusions Suicidal Thoughts: denies suicidal thoughts (fleeting passive thoughts to self- harm or end life chronically), denies suicidal plan and denies suicidal intent Homicidal Thoughts: denies homicidal thoughts Hallucinations: no auditory hallucinations and no visual hallucinations Cognition: recent memory grossly intact, remote memory grossly intact, attention grossly intact and language grossly intact Estimated Intelligence: average estimated intelligence and consistent with education level Insight: + fair insight Judgement: + fair judgement Vital Signs (Past 24 Hours) Last Vital Signs Temp 36.6 C 03/11/19 09:16 Pulse 56 L 03/11/19 09:16 Resp 16 03/11/19 09:16 BP 103/72 03/11/19 09:16 Pulse Ox 98 03/11/19 09:16 Principal Diagnosis Borderline Personality Disorder, Other persistant Mood disorder - recurrent depression r/o bipolar disorder Psychiatric Data Advance Directives Advance Directives Information Provided: Yes Advance Directives: No Mental Health Advance Directive: No Advance Directives on File: No Living Will: No Power of Stockroom Clerk: No Advance Directives Reason:: Declines as Mental Health Visit. Risk Factors Assessment Male: No : Yes Do You Have Access To A Gun?: No Health Problems: No Mental Health Diagnoses: Yes Substance Use Disorders: Yes Previous Attempt: Yes Previous Attempt; Highly Lethal: Yes Previous Attempt; Planned: Yes Family History of Suicide: No Previous Psychiatric Hospitalization: Yes Hopelessness: Yes Smoker: Yes Protective Factors Assessment Baptism Beliefs: No : No Responsible for Young Children: No Employed: Yes Stable Relationships: No Supportive Family: Yes (Though there is also significant tension at times) Good Rapport with Provider: Yes Discharge Data Consultations 02/27/19 19:45 ED Decision to Admit Stat Lab Results 02/27/19 02/27/19 02/27/19 16:10 16:10 16:10 WBC RBC Hgb Hct MCV MCH MCHC RDW Std Deviation RDW Coeff of Gui Plt Count MPV Immature Gran % (Auto) Neut % (Auto) Lymph % (Auto) [place] % (Auto) Eos % (Auto) Baso % (Auto) Immature Gran # (Auto) Neut # (Auto) Lymph # (Auto) [place] # (Auto) Eos # (Auto) Baso # (Auto) Sodium Potassium Chloride Carbon Dioxide Anion Gap BUN Creatinine Est Cr Clr Drug Dosing Est GFR ( Amer) Est GFR (Non-Af Amer) BUN/Creatinine Ratio Glucose Calcium Total Bilirubin AST ALT Alkaline Phosphatase Total Protein Albumin Globulin Albumin/Globulin Ratio TSH Urine Color Yellow Urine Appearance Cloudy A Urine pH 5.5 Ur Specific Fulda 1.021 Urine Protein Negative Urine Glucose (UA) Negative Urine Ketones Trace H Urine Blood Negative Urine Nitrite Negative Urine Bilirubin Negative Urine Urobilinogen Negative Ur Leukocyte Esterase 3+ H Urine WBC (Auto) 10-30 H Urine RBC (Auto) 0-4 U Hyaline Cast (Auto) 1-5 U Epithel Cells (Auto) >30 H Urine Bacteria (Auto) 1+ H Urine Test Negative Salicylates Urine Opiates Screen Neg Ur Methadone, Qual Neg Acetaminophen Urine Barbiturates Neg Ur Phencyclidine (PCP) Neg U Amphetamin/Meth Scrn Neg MDMA (Ecstasy) Screen Neg U Benzodiazepines Scrn Neg Ur Cocaine Metabolite Neg U Marijuana (THC) Screen Pos H U Marijuana THC Carboxy Ethyl Alcohol mg/dL 02/27/19 02/27/19 02/27/19 16:10 16:53 16:53 WBC 8.32 RBC 4.81 Hgb 15.6 Hct 45.0 MCV 93.6 MCH 32.4 MCHC 34.7 RDW Std Deviation 41.4 RDW Coeff of Ugi 12.2 Plt Count 218 MPV 10.0 Immature Gran % (Auto) 0.1 Neut % (Auto) 59.3 Lymph % (Auto) 29.6 [place] % (Auto) 10.0 Eos % (Auto) 0.8 Baso % (Auto) 0.2 Immature Gran # (Auto) 0.01 Neut # (Auto) 4.93 Lymph # (Auto) 2.46 [place] # (Auto) 0.83 H Eos # (Auto) 0.07 Baso # (Auto) 0.02 Sodium 139 Potassium 3.6 Chloride 105 Carbon Dioxide 27 Anion Gap 7.0 BUN 11 Creatinine 0.75 Est Cr Clr Drug Dosing 108.1 Est GFR ( Amer) 131.1 Est GFR (Non-Af Amer) 113.1 BUN/Creatinine Ratio 14.7 Glucose 76 Calcium 8.9 Total Bilirubin 0.5 AST 16 ALT 18 Alkaline Phosphatase 74 Total Protein 7.8 Albumin 4.0 Globulin 3.8 Albumin/Globulin Ratio 1.1 TSH 2.200 Urine Color Urine Appearance Urine pH Ur Specific Fulda Urine Protein Urine Glucose (UA) Urine Ketones Urine Blood Urine Nitrite Urine Bilirubin Urine Urobilinogen Ur Leukocyte Esterase Urine WBC (Auto) Urine RBC (Auto) U Hyaline Cast (Auto) U Epithel Cells (Auto) Urine Bacteria (Auto) Urine Test Salicylates Urine Opiates Screen Ur Methadone, Qual Acetaminophen Urine Barbiturates Ur Phencyclidine (PCP) U Amphetamin/Meth Scrn MDMA (Ecstasy) Screen U Benzodiazepines Scrn Ur Cocaine Metabolite U Marijuana (THC) Screen U Marijuana THC Carboxy 90 A Ethyl Alcohol mg/dL 02/27/19 02/27/19 16:53 16:53 WBC RBC Hgb Hct MCV MCH MCHC RDW Std Deviation RDW Coeff of Gui Plt Count MPV Immature Gran % (Auto) Neut % (Auto) Lymph % (Auto) [place] % (Auto) Eos % (Auto) Baso % (Auto) Immature Gran # (Auto) Neut # (Auto) Lymph # (Auto) [place] # (Auto) Eos # (Auto) Baso # (Auto) Sodium Potassium Chloride Carbon Dioxide Anion Gap BUN Creatinine Est Cr Clr Drug Dosing Est GFR ( Amer) Est GFR (Non-Af Amer) BUN/Creatinine Ratio Glucose Calcium Total Bilirubin AST ALT Alkaline Phosphatase Total Protein Albumin Globulin Albumin/Globulin Ratio TSH Urine Color Urine Appearance Urine pH Ur Specific Fulda Urine Protein Urine Glucose (UA) Urine Ketones Urine Blood Urine Nitrite Urine Bilirubin Urine Urobilinogen Ur Leukocyte Esterase Urine WBC (Auto) Urine RBC (Auto) U Hyaline Cast (Auto) U Epithel Cells (Auto) Urine Bacteria (Auto) Urine Test Salicylates < 1.7 L Urine Opiates Screen Ur Methadone, Qual Acetaminophen < 2 L Urine Barbiturates Ur Phencyclidine (PCP) U Amphetamin/Meth Scrn MDMA (Ecstasy) Screen U Benzodiazepines Scrn Ur Cocaine Metabolite U Marijuana (THC) Screen U Marijuana THC Carboxy Ethyl Alcohol mg/dL < 3.0 Hospital Course (1) Suicidal ideation: 02/28 - Admitted to a locked inpatient behavioral health unit, on q15 minute safety checks - Encourage medication initiation/adjustments as indicated - Encourage participation in group and recreational therapies - Gather collateral information from outpatient providers - Suggest family meeting to involve outpatient supports in safety planning - Arrange appropriate aftercare 03/01 - SI ongoing, SIB urges worsened from yesterday 03/02 - SI ongoing 03/04 - SI unresolved. 03/06 - SI worsened from yesterday; associated with elevated desire to self-harm 03/07 -Encourage patient to evaluate her healthy coping skills and outpatient supports and explore barriers to utilizing these, as she has decompensated in the past couple of days in the process of planning for discharge, and discharge has been postponed she does not feel safe returning home. She has been re- referred for case management services, and will meet with her wrapper caser today on the unit. Explore other options for increased outpatient supports and services, and encouraged her to follow through on her plan to work full-time to increase her daily structure. 03/08 - SI fleeting, but unable to contract for safety outside of the hospital. Continue to encourage patient to explore reasonable discharge plans which will increase safety 03/10 - Chronic history of SI and self-harm urges. Continue to be fleeting thoughts. Able to contract for safety if discharged to parents tomorrow. States she is now "scared of again." 03/11 - chornic history of intermittant SI and SIB urges. SHe states she feels more confident and able to handle them giving example of her conversation wtih her father last evening and how she did not appreciate his remarks but did not feel active plan or intent to harm herself despite feeling lower last night, denies active SI, intention or plans at this time, denies SIB urges at this time, able to state ways she can cope with distraction, self-talk, or support from mother and friend, and/or emergency resources. Future oriented to attend f/u psychiatric, therapy and case management appointments (2) Depression: 02/28 - Titrate citalopram to 30mg total today by providing an additional 10mg dose - Pt will receive 40mg qAM beginning tomorrow morning - EKG was ordered for tomorrow morning, but accidentally completed today. QTc - wnl; repeat EKG ordered for 03/02/19 once she reaches 40mg daily dosage. - Will hold clonidine during admission and observe blood pressure; low on admission and may not be necessary for her to continue this medication 03/01 - Continue citalopram 40mg qAM - EKG ordered for tomorrow - Continue to encourage healthy and effective coping strategies - Assist patient with ways to add structure and routine to her daily schedule 03/02 - Continue current medication regimen - EKG reviewed - QTc = 403 - Continue to encourage constructive communication with her parents and other outpatient supports 03/03 - Continue current medication regimen 03/04 -Lamotrigine started. 03/06 - Continue current medication regimen; citalopram 40mg qAM and recently added lamotrigine 25mg - denies side effects presently. 03/07 - Continue citalopram 40 mg daily and lamotrigine 25 mg daily. 03/08 - Continue current medication regimen - Encourage further refinement of healthy and effective coping strategies 03/09 - Continue current medication regimen: citalopram 40mg and lamotrigine 25mg - Titrate hydroxyzine to 100mg qHS prn - as 50mg was only partially beneficial 03/10 and 03/11/19, advance lamictal to 50mg on 03/12/19 and by 25mg each week thereafter until at 100mg, she was instructed to get next script for lamictal titration from Dr Rudolph, again reveiwed r/b/se/a of this medication to include calling promptly if she has a rash, enlarged or painful lymphnodes, fever or easy bleeding or bruising. Call to unit if prior to her f/u with Dr Rudolph, and call Dr Rudolph if she has already had her f/u appt. - Continue current medication regimen (3) Borderline personality disorder: 02/28 - Assist patient in development of coping strategies to manage impulsivity and better regulate emotions - Set healthy boundaries and limits during admission; continue education on diagnosis 03/04 - considered treatment options for emotional lability and impulse dyscontrol assoc w/ BPD. she was willing to trial lamictal after review of risks and benefits which included discussion of risk for ania's heraclio syndrome and need for regular compliance. will start 25mg po qhs. if well tolerated, can be further titrated as outpatient. 03/11/19 - advance lamictal as noted above under depression problem (4) Self-injurious behavior: 02/28 - Assist patient with development of healthy and effective coping strategies - Encourage patient to communicate feelings with staff regarding any self- harm urges 03/01 - Encouraged patient to report urges to stay, continue to engage in coping strategies to distract from these urges 03/03 - Ongoing self-harm urges, no specific temptations reported on the unit. - Continues to distract self with various activities 03/06 - Reporting elevated desire to self-harm today 03/10 and 03/11/19 - Chronic history of self-harm urges, able to use coping strategies to resist urge (5) Alcohol use disorder: 02/28 -Brief intervention was offered and accepted - though patient does not view her alcohol use as a problem Intervention was greater than 5 min in length. Brief interventions include: 1. Assess Readiness to Quit, 2. Advise: Help Patient to Reduce or Abstain from Alcohol, 3. Agree: Set Specific, Feasible Goals, 4. Assist: Anticipate barriers, Problem-Solving Solutions. Social work to 5. Arrange: Referrals to appropriate treatment. Summary of intervention: The patient is in precontemplation stage with regards to transtheoretical model of change. The patient is advised to decrease alcohol consumption due to depressant effects and risk of interactions with prescription medications. The patient was advised of recommendations for abstinence from alcohol and other abusable substances and to attend substance abuse treatment at discharge, and will be provided with recovery materials to continue to education self on how to cope with their condition without drinking. 03/10 - Devised safety plan to help her cope with likely exposure to alcohol over weekend - Mother was supportive and willing to assist - Continue to encourage sobriety after discharge 03/11/19 - discussed r/b/se/a of naltrexone to assist in relapse prevention to include but not limited watching for CHAPMAN, stomach upset, nausea, fatigue or insomnia, rare but concerning risk of protracted nasuea/vomitting, abdominal pain which could indicate liver injury and to call promptly if this rare but serious SE emerges, furthermore rare but concerning risk of worsening of mood and to call for the same (call unit if prior to seeing Dr Rudolph, call Dr Rudolph if she has had f/u appt) further work with customer program manager, therapist and Dr Rudolph for ongoing relapse prevention strategies. Need to get LFT in 6 weeks (lab slip given) while on naltrexone. (6) Cannabis abuse: 02/28 - Continue to educate patient on concerns related to marijuana use in conjunction with psychiatric treatment - Encourage the patient abstain from marijuana usage after discharge 03/11/19 encouraged ongoing work [facility] therapist, wrapper caser and psychiatrist to abstain (7) Nicotine dependence, cigarettes, uncomplicated: 02/28 - Patient is provided with nicotine gum during admission, recommendation to reduce and ultimately abstaining from tobacco use will not be the primary focus of admission, but should be encouraged 03/11/19 patient is pre-contemplational for change and declines smoking cessation medication or quit line information. She has f/u with case management, therapist and psychiatrist recommend motivational interviewing to assist in prompting movement in stages of change. Post Discharge Appointments Primary Care Physician Name Of Family Doctor: Dr. Sidra Benedict [facility] Time of Appointment with PCP: Follow up as needed. Provider Appointment Comment: [address] [place] [address] Psychiatrist Name of Psychiatrist: [facility] - Dr. Casillas Psychiatrist's Date of Appointment with Psychiatrist: 03/14/19 Time of Appointment with Psychiatrist: 9 am Psychiatric Appointment Comment: [address] [place] [address] Therapist Name of Therapist: Constanza Fan will schedule this appt on Wednesday Therapist's Date of Therapist Appointment: 03/08/19 Time of Therapist Appointment: 4:00 p.m. Therapy Appointment Comment: [address] [place] [address] Customer Liaison Name of Customer Liaison: [facility] Phone Number for Customer Liaison: [phone] Date of Appointment with Customer Liaison: 03/15/19 Time of Appointment with Customer Liaison: 3:30 p.m. Case Management Appointment Comment: Will see you at your house Other #1: Name of Aftercare Appointment: Other options: EAP for counseling needs offered through insurance Phone Number of Aftercare Appointment: #2: Name of Aftercare Appointment: [employer] - offered through insu kelsie Phone Number of Aftercare Appointment: #3: Name of Aftercare Appointment: [facility] - 8 week program to lessen depression, anxiety - offered through ins Phone Number of Aftercare Appointment: [phone] Contact Information Discharge Discharge [address]: [address] [place] [address] [place] [address] Discharge Plan Discharge Items Patient Disposition: Home - Self-Care Reason For Visit: DEPRESSION Discharge Diagnosis: borderline personality disorder, recurrent depression r/o bipolar II vs. MDD recurrent Condition: Good Discharge Goals: Improve disease control Activity: Resume your previous activity Non-emergency contact: Psychiatrist, Therapist and Environmental Engineer Call non-emergency contact if: you have any medication questions and your symptoms worsen Follow-up/Referrals: Sidra Benedict DO [Primary Care Provider] - Diet: Regular Other Ambulatory Orders: Hepatic Panel (Routine) Timeframe: 6 Weeks Facility: [facility] - Location: Administration / Operations Ordered By: Gracy Thompson Provider Instructions: Follow Safety PLan Please discuss alcohol relapse prevention with each of your providers to include the med change with additioin of naltrexone. Get liver function tests at the lab in 6 weeks approximately end of March/Early April, results will go to Dr Rudolph. Prescriptions: New citalopram 40 mg Tablet 40 mg PO QAM Qty: 30 RF: 0 hydroxyzine HCl 50 mg tablet 100 mg PO HSZ PRN (Reason: for insomnia) Qty: 60 RF: 0 lamotrigine [Lamictal] 25 mg Tablet 25 mg PO HS Qty: 42 RF: 0 naltrexone 50 mg tablet 50 mg PO DAILY Qty: 30 RF: 0 Discontinued clonidine HCl 0.1 mg tablet 0.05 mg PO AMHS RF: 0 citalopram 20 mg tablet 20 mg PO QAM RF: 0 Visit Report Forms: Smoking Cessation Stand-Alone Forms: [facility] Discharge Orders: Discharge Order (Routine); Ordered 03/11/19 Ordered By: Gracy Bernard Admission Data Admit Date/Time: 02/27/19 19:23 Attending Provider: So Gonzalez Admit Provider: So Gonzalez Primary Care Provider: Sidra Benedict Other Providers: So Gonzalez Service: Psychiatry Other Interventions: PSY Interdisciplinary Discharge Planning Last Done: 03/10/19 12:32 Pending Studies at Discharge: No
== END 2019-03-11 12:10 | disposition home or self-care (01) | DRG 883 ==
LOC: ED 16:08 → 3S 19:23
DX: F12.10 Cannabis abuse, uncomplicated; Z91.5 Personal history of self-harm; F34.89 Other specified persistent mood disorders; Z79.899 Other long term (current) drug therapy; F17.210 Nicotine dependence, cigarettes, uncomplicated; F31.9 Bipolar disorder, unspecified; R45.851 Suicidal ideations; F60.3 Borderline personality disorder; Z72.89 Other problems related to lifestyle

== ENCOUNTER 2019-07-28 13:39 | Inpatient (IN) ==
[2019-07-28 14:16] LABS: Basophils # (auto) 0.03 K/uL (0-0.2); Basophils % (auto) 0.4 %; Eosinophils # (auto) 0.08 K/uL (0-0.5); Hematocrit (blood only) 44.1 % (37-47); Immature Granulocytes # (auto) 0.02 K/uL (0.00-0.02); Immature Granulocytes % (auto) 0.3 %; Lymphocytes # (auto) 1.92 K/uL (1.2-3.4); Mean Corpuscular Hemoglobin 31.7 pg (25-34); Mean Corpuscular Volume 93.2 fL (80-100); Mean Platelet Volume 10.2 fL (7.4-10.4); Monocytes # (auto) 0.73 K/uL (0.11-0.59); Monocytes % (auto) 9.1 %; Neutrophils # (auto) 5.21 K/uL (1.4-6.5); Neutrophils % (auto) 65.2 %; Platelet Count 210 K/uL (130-400); RDW Coefficient of Variation 12.7 % (11.5-14.5); RDW Standard Deviation 43.5 fL (36.4-46.3); Red Blood Count 4.73 M/uL (4.2-5.4); White Blood Count 7.99 K/uL (4.8-10.8)
[2019-07-28 14:37] LABS: Albumin Level 3.9 gm/dl (3.4-5.0); BUN Creatinine Ratio 24.4 (10-20); Creatinine Clr Calc Pharmacy 122.3 ml/min; Est GFR (African American) 143.9; Est GFR (Non-African American) 124.2; Potassium 3.8 mmol/L (3.5-5.1)
[2019-07-28 14:39] LABS: Acetaminophen < 2 ug/ml (10-30); Salicylate < 1.7 mg/dl (2.8-20)
[2019-07-28 14:47] LABS: Albumin Globulin Ratio 1.1 (0.9-2); Bilirubin,Total 0.4 mg/dl (0.2-1); Globulin 3.6 gm/dl (2.5-4.0); Thyroid Stimulating Hormone 3.08 uIu/ml (0.300-4.500); Total Protein 7.5 gm/dl (6.4-8.2)
[2019-07-28 16:20] LABS: Pregnancy Test, Urine Negative (Negative)
[2019-07-28 16:24] LABS: Appearance Urine Clear (Clear); Bacteria Urine Automated 1+ (Negative); Bilirubin Urine Negative (Negative); Blood Urine Negative (Negative); Color Urine Yellow; Epithelial Cell Urine Auto >30 /lpf (0-5); Glucose Urine UA Negative (Negative); Ketones Urine 1+ (Negative); Leukocyte Esterase Urine 2+ (Negative); Nitrite Urine Negative (Negative); Protein Urine Negative (Negative); RBC Urine Automated 0-4 /hpf (0-4); Specific Gravity Urine 1.021 (1.000-1.030); Urobilinogen Urine Negative (Negative); pH Urine 5.5 (4.5-7.5)
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
[2019-07-28 16:48] LABS: Amphetamines+Metham, Urine Neg (Neg); Barbiturates, Urine Neg (Neg); Benzodiazepine, Urine Neg (Neg); Cocaine, Urine Neg (Neg); MDMA (Ecstacy), Urine Neg (Neg); Methadone, Urine Neg (Neg); Opiate, Urine Neg (Neg); Phencyclidine, Urine Neg (Neg)
[2019-07-28] MEDS ORDERED: MAGNESIUM HYDROXIDE SUSP 30 ML UDC PO PRN (17:17)
[2019-07-28] MEDS ORDERED: SODIUM CHLORIDE 0.65% NA SOLN 45 ML (OCEAN) PRN (17:17)
[2019-07-28] MEDS ORDERED: ALUMINUM/MAGNESIUM SUSP 30 ML UDC PO PRN (17:17)
[2019-07-28] MEDS ORDERED: ACETAMINOPHEN 325 MG TAB PO PRN (17:17)
[2019-07-28] MEDS ORDERED: BISMUTH SUBSALICYLATE PER ML OMNICELL CHARGE PO PRN (17:17)
[2019-07-28] MEDS: lamoTRIgine 100 MG TAB PO SCH (21:11)
--- NOTE | 2019-07-29 08:48 | History & Physical ---
Date of Service July 29, 2019 Impression / Recommendations Impression 24-year-old female admitted medically on 07/28/19 after a gesture of intentional self-harm that occurred prior to admission. Pt reacted impulsively to an argument with her parents. Pt admits to stabbing her left forearm multiple times with a knife. Stab wounds did not require intervention in the ED, and patient denies suicidal intent behind the action. Pt admits to recognition that her behavior was not an appropriate reaction to the specific stressor, but reports improvement in her mood and emotional regulation overall. At patient's request, we will continue home medication regimen at this time, and gather collateral information from parents and other supports. Given patient's significant history of intentional self-harm, previous suicide attempts, and history of impulsive behaviors, she remains at high risk of harm to self if she is discharged prior to adequate mitigation of associated risk factors. Inpatient psychiatric treatment is medically necessary at this time. Dr. So Gonzalez was directly involved in review and discussion of the patient's case and participated in medical decision making regarding treatment recommendations. (1) Intentional self-harm: 07/29 - 10+ intentional puncture wounds to left posterior forearm; no medical intervention required in the ED - Continue to observe wound healing process - Admitted to a locked inpatient behavioral health unit, on q15 minute safety checks - Encourage medication initiation/adjustments as indicated - Encourage participation in group and recreational therapies - Gather collateral information from outpatient providers - Suggest family meeting to involve outpatient supports in safety planning - Arrange appropriate aftercare (2) Depression: 07/29 - Continue outpatient medication regimen: citalopram 40mg daily; lamotrigine 100mg daily; scheduled Vivitrol injections - Coordinate care with outpatient providers - Obtain collateral information from parents - Encourage participation in group and recreational therapy - Assist with development of healthy and effective coping strategies - Encourage family meeting involving outpatient supports Active/Remission status: currently active Depression Type: major depressive disorder Major depression episode severity: severe Major depression recurrence: recurrent Psychotic features: without psychotic features Qualified Code(s): F33.2 - Major depressive disorder, recurrent severe without psychotic features (3) Borderline personality disorder: 07/29 - Pt endorses ongoing impulsivity and difficulty appropriately regulating emotions - Maintain appropriate boundaries during admission - Assist with development of healthy and effective coping strategies (4) Cannabis abuse: 07/29 - Pt admits to daily marijuana use; denies belief that substance use has been contributing to any of her present concerns -Brief intervention was offered and accepted Intervention was greater than 5 min in length. Brief interventions include: 1. Assess Readiness to Quit, 2. Advise: Help Patient to Reduce or Abstain from substance use, 3. Agree: Set Specific, Feasible Goals, 4. Assist: Anticipate barriers, Problem-Solving Solutions. Social work to 5. Arrange: Referrals to appropriate treatment. Summary of intervention: The patient is in precontemplation stage with regards to transtheoretical model of change. The patient is advised to decrease substance use due to mood-altering effects and risk of interactions with prescription medications. The patient was advised of recommendations for abstinence from abusable substances and to attend substance abuse treatment at discharge, and will be provided with recovery materials to continue to education self on how to cope with their condition without drinking. (5) Alcohol use disorder: 07/29 - Alcohol use disorder in partial remission - Continue Vivitrol injections, will need to determine timing of last injection (6) Nicotine dependence, cigarettes, uncomplicated: 07/29 - 14mg Nicotine patch ordered, patient indicates no desire to stop smoking at this time (7) Abnormal urinalysis: 07/29 - UA positive for ketones, 2+ leukocyte esterase, 5-10 WBC, 1+ urine bacteria - >30 epithelial cells - Pt denies urinary symptoms, urine culture has been sent - will await results prior to treating Inventory Assets Strengths: Established outpatient providers, reportedly beneficial medication regimen Risk Factors Assessment Male: No : Yes Do You Have Access To A Gun?: No Health Problems: No Mental Health Diagnoses: Yes Substance Use Disorders: Yes Previous Attempt: Yes Previous Attempt; Highly Lethal: Yes Previous Psychiatric Hospitalization: Yes Hopelessness: No Smoker: Yes Protective Factors Assessment : No Responsible for Young Children: No Employed: Yes ([employer] and [employer]) Supportive Family: No Psychiatric History Identifying Data KARSON MANNING is a 24-year-old F who currently lives in [place] with her parents. Pt has a history of depression, substance abuse, and borderline personality disorder. She was admitted on 07/28/19 17:18 on a 302 involuntary commitment for intentional self harm after an argument with her parents. Pt had reportedly called her case sealer after she had impulsively stabbed her arm multiple times with a knife. Information is gathered from ED documentation, 302 petitioning statement, and the patient herself - the combination of which is considered to be reliable. Chief Complaint "It started yesterday because I missed an appointment with my case sealer. I worked late and overslept. My parents were upset and took the car, so then I couldn't hang out with my friends." History of Present Illness Karson Manning is a 24-year-old female admitted involuntarily for inpatient psychiatric treatment after presenting to the ED via EMS. It was reported that the patient had been in an argument with her parents and then stabbed herself multiple times in the arm with a knife. Pt reportedly called her case sealer after this event, who notified crisis. Petitioning statement was completed by her case sealer, and a 302 warrant was issued in the ED as patient was not voluntary to come for mental health evaluation. 302 was upheld, and patient was admitted to [address] [place] [address] for further psychiatric treatment. Pt is cooperative with evaluation today. She states that her admission is the result of "impulsive behavior, it all started yesterday because I had missed an appointment with my case sealer." Pt states that her parents did not permit her to use the car after they found out about this, which upset the patient. Pt states "my brains first thought was to hurt myself, I didn't know what to do." She admits to grabbing a knife, going to her room by herself, and stabbing herself multiple times in the left arm. She states that "immediately after" she stabbed herself, she called a friend to inform them of the situation. It was after calling her friend that she called her case sealer. Pt states, "I'm better at reaching out than I was, I'm seeing progress." Pt admits that there continues to be "a huge communication wall between me and my parents." She does admit, however, that they discussed the situation in the ED while she was awaiting admission. Pt reports, "I think they still view me as a teenager. They want me to do things and be happy and have energy, but I work all the time and I'm tired. I'd rather just not be around, I think I annoy them." Pt states that her parents "called a meeting a few weeks ago", and stated that they wanted her to move out. Pt states that her parents gave her a week timeline, but ultimately accepted an agreement in which the patient would pay rent to stay there. Pt states that she may be feeling more depressed recently, having difficulty falling and staying asleep. Pt admits to low energy and feelings of hopelessness. Despite this, she states she has not experienced suicidal ideation in "a few months". Pt believes that her medications have been working well for her overall, and she continues to notice their effects. She feels she has been making progress, but is understanding that her actions were impulsive and highly reactive. Pt denies SI, HI, A/V hallucinations, paranoia, melvina/hypomania, other symptoms more suggestive of a bipolar presentation, OCD, PTSD, eating disorder, and other specific psychiatric symptoms. Past Psychiatric History Previous Psych History: Patient reports diagnoses of borderline personality disorder, depression, and anxiety. She is currently seen by Dr. Escamilla at [facility] and by [facility] Ponce for therapy (though has not gone in months). She reports several previous inpatient psychiatric admissions at [facility], an RT[facility] in [facility] most recently in 02/2019. Patient reports previous suicide attempt by overdose, and a history of self-injurious behavior by cutting. Current Psychiatric Diagnosis: Borderline Personality Disorder, Depression, Substance abuse Outpatient Services: Psychiatrist - Dr. 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 Zoloft - took for several years 2. Effexor - ineffective 3. Wellbutriin 4. Seroquel - sedation 5. Celexa 6. Lamictal 7. Vivitrol Past Head Trauma/Neuro History History of Concussion/Seizure: No Allergies Allergy/AdvReac Type Severity Reaction Status Date / Time No Known Allergies Allergy Verified 02/27/19 16:37 Home Medications Home Medications Medication Instructions Recorded Confirmed Type citalopram [Celexa] 40 mg PO QAM 07/28/19 07/28/19 History hydroxyzine HCl 100 mg PO HS PRN 07/28/19 07/28/19 History lamotrigine [Lamictal] 100 mg PO HS 07/28/19 07/28/19 History naltrexone microspheres [Vivitrol] 380 mg IM MONTHLY 07/28/19 07/28/19 History Family History Family History of: Doesn't Know Family Mental Health History Comment: Patient reports father's behaviors suggestive of depression and PTSD; mother has historically displayed symptoms of anxiety. Parents have not had any formal psychiatric diagnosis or treatment per patient. Alcohol History Hx of Alcohol Use Over the Past 12 Months: Yes (hx - on Vivitrol) AUDIT Total Score: 0 Pt reports cutting back on alcohol use recently. She states she may drink once a month at most, usually consuming 2 alcoholic beverages on nights she partakes. Smoking Use Have You Smoked or Used Tobacco Products in the Last 30 Days: Yes tobacco type: cigarettes Smoking Status: Current every day smoker Smoking packs per day: 0.25 Substance History Hx of Prescription Med Misuse Over the Past 12 Months: No Hx of Over the Counter Med Misuse Over the Past 12 Months: No Hx of Inhalent Misuse Over the Past 12 Months: No Hx of Organic Substance Use Over the Past 12 Months: Yes (daily marijuana ) Hx of Illegal Substances/Street Drug Use Over Past 12 Months: No Problems as a Result of Past Substance Use: None Identified Pt continues to use marijuana daily. 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 employment at [employer], works some additional hours at [employer]) Marital Status: Single Number Of Children: None Beliefs That Will Affect Care: None Current Legal Problems: No (Just off of probation) Legal Problems Comment: Prior charges of disorderly conduct, was on probation until 04/2019 Hx Traumatic Life Events: No (But admits parents frequently "guilt trip" her in play "head games") Patient History Medical History Borderline personality disorder (Chronic) Cannabis abuse (Chronic) Nicotine dependence, cigarettes, uncomplicated (Chronic) Self-inflicted laceration of wrist Family History Other No significant family history Social History Preferred Language: Bolivian Communication Ability: Effective 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 Required: No Beliefs That Will Affect Care: None marital status: Single Current Living Situation: Family current occupational status: employed Feels Safe at Home: Yes Smoking Status: Current every day smoker Tobacco Type: cigarettes ; Review of Systems 2 Review of Systems: Constitutional: reports fatigue Cardiovascular: denied Respiratory: reports cough, patient believes related to tobacco use Gastrointestinal: denied Neurological: denied Psychiatric: denies symptoms other than stated above Musculoskeletal: reports chronic hip pain Total of at least 10 systems reviewed, pertinent positives as above and in HPI. Physical Exam Psychiatric: Orientation: alert, oriented x 3 and cooperative (and pleasant) Apperance: appropriately dressed, appropriately groomed and appeared stated age Obese-appearing female seated in no acute distress. Dressed appropriately in a t-shirt and gym pants. Grooming appears adequate. Pt has multiple tattoos to arms, wearing corrective lenses, has gauge earrings. Pt multiple scars to forearms bilaterally from past SIB. Pinpoint stab wounds are observed on the left posterior forearm, all closed without bleeding, drainage, or signs of infection. Level of hygiene and hydration appears to be adequate. Eye Contact: good eye contact Motor Behavior: steady gait and station and no abnormal motor movements Speech: normal rate/rhythm/volume of speech Affect: + blunted affect (appropriately smiling at times, but seems reserved/timid) Mood: + depressed mood ("maybe more depressed, but I feel like I have been better overall") Thought Process: goal directed thought process, clear/coherent thought process and thought association intact Thought Content: + cognitive distortions and + hopelessness Suicidal Thoughts: denies suicidal thoughts, denies suicidal plan and denies suicidal intent But admits to impulsively stabbing her arm with a knife prior to admission Homicidal Thoughts: denies homicidal thoughts Hallucinations: no auditory hallucinations and no visual hallucinations Cognition: remote memory grossly intact, attention grossly intact and language grossly intact Insight: + poor insight Judgement: + poor judgement Vital Signs (Past 24 Hours): Last Vital Signs Temp 36.5 C 07/29/19 06:49 Pulse 57 L 07/29/19 06:50 Resp 20 07/29/19 06:49 BP 110/72 07/29/19 06:50 Pulse Ox 100 07/28/19 15:55 Exam Statement: A physical exam was performed in the ER prior to admission to the unit by Dr. Forrest Doran DO. I accept that physical as correct/medical clearance for the inpatient physical exam. Results & Data Laboratory Results Laboratory Results - last 24 hr 07/28/19 07/28/19 07/28/19 14:02 14:02 14:02 WBC 7.99 RBC 4.73 Hgb 15.0 Hct 44.1 MCV 93.2 MCH 31.7 MCHC 34.0 RDW Std Deviation 43.5 RDW Coeff of Gui 12.7 Plt Count 210 MPV 10.2 Immature Gran % (Auto) 0.3 Neut % (Auto) 65.2 Lymph % (Auto) 24.0 Alpine % (Auto) 9.1 Eos % (Auto) 1.0 Baso % (Auto) 0.4 Immature Gran # (Auto) 0.02 Neut # (Auto) 5.21 Lymph # (Auto) 1.92 Alpine # (Auto) 0.73 H Eos # (Auto) 0.08 Baso # (Auto) 0.03 Sodium 140 Potassium 3.8 Chloride 112 H Carbon Dioxide 21 Anion Gap 7.0 BUN 17 Creatinine 0.68 Est Cr Clr Drug Dosing 122.3 Est GFR ( Amer) 143.9 Est GFR (Non-Af Amer) 124.2 BUN/Creatinine Ratio 24.4 H Glucose 96 Calcium 9.0 Total Bilirubin 0.4 AST 12 L ALT 22 Alkaline Phosphatase 61 Total Protein 7.5 Albumin 3.9 Globulin 3.6 Albumin/Globulin Ratio 1.1 TSH 3.080 Urine Color Urine Appearance Urine pH Ur Specific Cross Urine Protein Urine Glucose (UA) Urine Ketones Urine Blood Urine Nitrite Urine Bilirubin Urine Urobilinogen Ur Leukocyte Esterase Urine WBC (Auto) Urine RBC (Auto) U Hyaline Cast (Auto) U Epithel Cells (Auto) Urine Bacteria (Auto) Urine Test Salicylates < 1.7 L Urine Opiates Screen Ur Methadone, Qual Acetaminophen < 2 L Urine Barbiturates Ur Phencyclidine (PCP) U Amphetamin/Meth Scrn MDMA (Ecstasy) Screen U Benzodiazepines Scrn Ur Cocaine Metabolite U Marijuana (THC) Screen U Marijuana THC Carboxy Ethyl Alcohol mg/dL 07/28/19 07/28/19 07/28/19 14:02 15:45 15:45 WBC RBC Hgb Hct MCV MCH MCHC RDW Std Deviation RDW Coeff of Gui Plt Count MPV Immature Gran % (Auto) Neut % (Auto) Lymph % (Auto) Alpine % (Auto) Eos % (Auto) Baso % (Auto) Immature Gran # (Auto) Neut # (Auto) Lymph # (Auto) Alpine # (Auto) Eos # (Auto) Baso # (Auto) Sodium Potassium Chloride Carbon Dioxide Anion Gap BUN Creatinine Est Cr Clr Drug Dosing Est GFR ( Amer) Est GFR (Non-Af Amer) BUN/Creatinine Ratio Glucose Calcium Total Bilirubin AST ALT Alkaline Phosphatase Total Protein Albumin Globulin Albumin/Globulin Ratio TSH Urine Color Yellow Urine Appearance Clear Urine pH 5.5 Ur Specific Cross 1.021 Urine Protein Negative Urine Glucose (UA) Negative Urine Ketones 1+ H Urine Blood Negative Urine Nitrite Negative Urine Bilirubin Negative Urine Urobilinogen Negative Ur Leukocyte Esterase 2+ H Urine WBC (Auto) 5-10 H Urine RBC (Auto) 0-4 U Hyaline Cast (Auto) 1-5 U Epithel Cells (Auto) >30 H Urine Bacteria (Auto) 1+ H Urine Test Salicylates Urine Opiates Screen Neg Ur Methadone, Qual Neg Acetaminophen Urine Barbiturates Neg Ur Phencyclidine (PCP) Neg U Amphetamin/Meth Scrn Neg MDMA (Ecstasy) Screen Neg U Benzodiazepines Scrn Neg Ur Cocaine Metabolite Neg U Marijuana (THC) Screen Pos H U Marijuana THC Carboxy Ethyl Alcohol mg/dL < 3.0 07/28/19 07/28/19 15:45 15:45 WBC RBC Hgb Hct MCV MCH MCHC RDW Std Deviation RDW Coeff of Gui Plt Count MPV Immature Gran % (Auto) Neut % (Auto) Lymph % (Auto) Alpine % (Auto) Eos % (Auto) Baso % (Auto) Immature Gran # (Auto) Neut # (Auto) Lymph # (Auto) Alpine # (Auto) Eos # (Auto) Baso # (Auto) Sodium Potassium Chloride Carbon Dioxide Anion Gap BUN Creatinine Est Cr Clr Drug Dosing Est GFR ( Amer) Est GFR (Non-Af Amer) BUN/Creatinine Ratio Glucose Calcium Total Bilirubin AST ALT Alkaline Phosphatase Total Protein Albumin Globulin Albumin/Globulin Ratio TSH Urine Color Urine Appearance Urine pH Ur Specific Cross Urine Protein Urine Glucose (UA) Urine Ketones Urine Blood Urine Nitrite Urine Bilirubin Urine Urobilinogen Ur Leukocyte Esterase Urine WBC (Auto) Urine RBC (Auto) U Hyaline Cast (Auto) U Epithel Cells (Auto) Urine Bacteria (Auto) Urine Test Negative Salicylates Urine Opiates Screen Ur Methadone, Qual Acetaminophen Urine Barbiturates Ur Phencyclidine (PCP) U Amphetamin/Meth Scrn MDMA (Ecstasy) Screen U Benzodiazepines Scrn Ur Cocaine Metabolite U Marijuana (THC) Screen U Marijuana THC Carboxy Pending Ethyl Alcohol mg/dL Current Inpatient Medications Current Inpatient Medications: Current Inpatient Medications Acetaminophen (Tylenol) 650 mg PO Q4H PRN PRN Reason: Headache or Minor Fever Stop: 08/27/19 17:16 Al Hydrox/Mg Hydrox/Simethicone (Maalox) 30 ml PO Q4H PRN PRN Reason: GI Upset Stop: 08/27/19 17:16 Bismuth Subsalicylate (Kaopectate) 15 ml PO PRN PRN PRN Reason: Loose Stool Stop: 08/27/19 17:16 Citalopram Hydrobromide (Celexa) 40 mg PO QAM [facility] Stop: 08/28/19 08:59 Hydroxyzine HCl (Vistaril) 25 mg PO Q4H PRN PRN Reason: Anxiety Stop: 08/27/19 17:16 Hydroxyzine HCl (Vistaril) 100 mg PO HS PRN PRN Reason: Sleep Stop: 08/27/19 17:21 Lamotrigine (Lamictal) 100 mg PO HS [facility] Stop: 08/27/19 20:59 Last Admin: 07/28/19 21:11 Dose: 100 mg Documented by: Magnesium Hydroxide (Milk Of Magnesia) 30 ml PO DAILY PRN PRN Reason: Constipation Stop: 08/27/19 17:16 Miscellaneous (Remove Nicoderm Patch) 1 ea N/A HS [facility] Stop: 08/27/19 20:59 Last Admin: 07/28/19 21:11 Dose: Not Given Documented by: Nicotine (Nicoderm Cq) 14 mg TD QAM [facility] Stop: 08/28/19 08:59 Nicotine Polacrilex (Nicorette 2mg) 1 piece MT PRN PRN PRN Reason: Nicotine Withdrawal Stop: 08/27/19 17:21 Sodium Chloride (Dale Nasal) 1 - 2 sprays NA PRN PRN PRN Reason: Nasal Dryness/Congestion Stop: 08/27/19 17:16 CPT Code CPT Code Initial Hospital Care: [id number]
[2019-07-29] MEDS: NICOTINE 14 MG/24 HR PATCH TD SCH (10:23)
[2019-07-29] MEDS: NICOTINE POLACRILEX 2 MG GUM MT PRN (10:24)
[2019-07-29] MEDS: CITALOPRAM 40 MG TAB PO SCH (10:24)
[2019-07-29] MEDS: lamoTRIgine 100 MG TAB PO SCH (20:54)
--- NOTE | 2019-07-30 08:47 | Psychiatric Progress Note ---
Date of Service July 30, 2019 Impression / Recommendations Impression 24-year-old female admitted medically on 07/28/19 after a gesture of intentional self-harm that occurred prior to admission. Pt reacted impulsively to an argument with her parents. Pt admits to stabbing her left forearm multiple times with a knife. Stab wounds did not require intervention in the ED, and patient denies suicidal intent behind the action. Pt admits to recognition that her behavior was not an appropriate reaction to the specific stressor, but reports improvement in her mood and emotional regulation overall. At patient's request, we will continue home medication regimen at this time, and gather collateral information from parents and other supports. Given patient's significant history of intentional self-harm, previous suicide attempts, and history of impulsive behaviors, she remains at high risk of harm to self if she is discharged prior to adequate mitigation of associated risk factors. Inpatient psychiatric treatment is medically necessary at this time. (1) Intentional self-harm: 07/29 - 10+ intentional puncture wounds to left posterior forearm; no medical intervention required in the ED - Continue to observe wound healing process - Admitted to a locked inpatient behavioral health unit, on q15 minute safety checks - Encourage medication initiation/adjustments as indicated - Encourage participation in group and recreational therapies - Gather collateral information from outpatient providers - Suggest family meeting to involve outpatient supports in safety planning - Arrange appropriate aftercare 07/30 - Pt continues to deny SI at this point, but remains at increased risk of harm if discharged without adequate mitigation of risk factors (2) Depression: 07/29 - Continue outpatient medication regimen: citalopram 40mg daily; lamotrigine 100mg daily; scheduled Vivitrol injections - Coordinate care with outpatient providers - Obtain collateral information from parents - Encourage participation in group and recreational therapy - Assist with development of healthy and effective coping strategies - Encourage family meeting involving outpatient supports 07/30 - Continue current medication regimen - Family meeting with mother scheduled for this afternoon - Meeting with Mita tomorrow (3) Borderline personality disorder: 07/29 - Pt endorses ongoing impulsivity and difficulty appropriately regulating emotions - Maintain appropriate boundaries during admission - Assist with development of healthy and effective coping strategies (4) Cannabis abuse: 07/29 - Pt admits to daily marijuana use; denies belief that substance use has been contributing to any of her present concerns -Brief intervention was offered and accepted Intervention was greater than 5 min in length. Brief interventions include: 1. Assess Readiness to Quit, 2. Advise: Help Patient to Reduce or Abstain from substance use, 3. Agree: Set Specific, Feasible Goals, 4. Assist: Anticipate barriers, Problem-Solving Solutions. Social work to 5. Arrange: Referrals to appropriate treatment. Summary of intervention: The patient is in precontemplation stage with regards to transtheoretical model of change. The patient is advised to decrease substance use due to mood-altering effects and risk of interactions with prescription medications. The patient was advised of recommendations for abstinence from abusable substances and to attend substance abuse treatment at discharge, and will be provided with recovery materials to continue to education self on how to cope with their condition without drinking. (5) Alcohol use disorder: 07/29 - Alcohol use disorder in partial remission - Continue Vivitrol injections, will need to determine timing of last injection (6) Nicotine dependence, cigarettes, uncomplicated: 07/29 - 14mg Nicotine patch ordered, patient indicates no desire to stop smoking at this time (7) Abnormal urinalysis: 07/29 - UA positive for ketones, 2+ leukocyte esterase, 5-10 WBC, 1+ urine bacteria - >30 epithelial cells - Pt denies urinary symptoms, urine culture has been sent - will await results prior to treating Inventory Assets Strengths: Established outpatient providers, reportedly beneficial medication regimen Risk Factors Assessment Male: No : Yes Do You Have Access To A Gun?: No Health Problems: No Mental Health Diagnoses: Yes Substance Use Disorders: Yes Previous Attempt: Yes Previous Attempt; Highly Lethal: Yes Previous Psychiatric Hospitalization: Yes Hopelessness: No Smoker: Yes Protective Factors Assessment : No Responsible for Young Children: No Employed: Yes ([employer]) Supportive Family: No Interval History Identifying Information LIZET GARCIA is a 24-year-old F who currently lives in [place] with her parents. Pt has a history of depression, substance abuse, and borderline personality disorder. She was admitted on 07/28/19 17:18 on a 302 involuntary commitment for intentional self harm after an argument with her parents, leading her to impulsively stab her arm multiple times with a knife. 302 expires on 08/02 at []. Chief Complaint "Um ok. My mom came to visit last night, it didn't really go great." Review of Systems Notes Constitutional: denied Cardiovascular: denied Respiratory: denied Gastrointestinal: denied Neurological: denied Psychiatric: denies symptoms other than stated above Total of at least 10 systems reviewed, pertinent positives as above and in HPI. Sleep Information Total Hours of Sleep: 9 Sleep Comments: pt appeared to sleep 3 hrs during evening shift. pt given vistaril per rn. pt on q-15 minute checks Meal Information Percent Meal Consumed - Breakfast: 0 Percent Meal Consumed - Lunch: 50 Percent Meal Consumed - Dinner: 100 Subjective Subjective Patient was seen & assessed and interval progress reviewed with nursing and social work. Staff reports the patient has been appropriate on the unit. She received a visit from her mother last evening, which appeared to have gone well, but patient reported it was not a good visit. Pt is scheduled for a meeting with her mother this afternoon. Pt was seen today to assess progress since admission. Pt states she is "ok" today, reporting that she had a chance to talk with her mother this morning about their conversation last night. Pt states, "last night's conversation didn't go too well, but I called her and we talked again today." Pt reports that she was speaking with her mother last evening about various insecurities. It was reported that the patient's mother responded by saying comments such as "you're smart" and "you're beautiful." Pt admits that she reacted strongly to these comments, feeling that her emotions were invalidated by her mother, but now recognizes, "I think she was trying to cheer me up." We discussed that patient understands the sentiment, but would have rather her mother had said comments such as, "I understand you may feel that way, but I think you are smart." She states, "if she says things this way, it makes me feel like she at least understands my feelings, and isn't trying to just tell me I'm wrong." She states that this was not something she was able to discuss with her mother this morning. Pt states that she is continuing to do well on the unit, and does not feel that any medication adjustments are necessary. Pt continues to deny SI, does not have other acute concerns today. Physical Exam Psychiatric Orientation: alert, oriented x 3 and cooperative Apperance: appropriately dressed, appropriately groomed and appeared stated age Eye Contact: good eye contact Motor Behavior: steady gait and station and no abnormal motor movements Speech: normal rate/rhythm/volume of speech Affect: + blunted affect Mood: + depressed mood and + anxious mood Thought Process: goal directed thought process, linear/logical thought process and thought association intact Thought Content: + cognitive distortions (but able to process and discuss appropriately) and reality based without delusions; no hopelessness Suicidal Thoughts: denies suicidal thoughts and denies suicidal intent Homicidal Thoughts: denies homicidal thoughts Hallucinations: no auditory hallucinations and no visual hallucinations Cognition: attention grossly intact and language grossly intact Insight: + fair insight Judgement: + fair judgement Vital Signs (Past 24 Hours) Last Vital Signs Temp 36.6 C 07/30/19 06:58 Pulse 57 L 07/30/19 06:59 Resp 18 07/30/19 06:58 BP 105/67 07/30/19 06:59 Pulse Ox 100 07/28/19 15:55 Results & Data Current Inpatient Medications Current Inpatient Medications: Current Inpatient Medications Acetaminophen (Tylenol) 650 mg PO Q4H PRN PRN Reason: Headache or Minor Fever Stop: 08/27/19 17:16 Last Admin: 07/29/19 11:20 Dose: 650 mg Documented by: Al Hydrox/Mg Hydrox/Simethicone (Maalox) 30 ml PO Q4H PRN PRN Reason: GI Upset Stop: 08/27/19 17:16 Bismuth Subsalicylate (Kaopectate) 15 ml PO PRN PRN PRN Reason: Loose Stool Stop: 08/27/19 17:16 Citalopram Hydrobromide (Celexa) 40 mg PO QAM PRAVEEN Stop: 08/28/19 08:59 Last Admin: 07/29/19 10:24 Dose: 40 mg Documented by: Hydroxyzine HCl (Vistaril) 25 mg PO Q4H PRN PRN Reason: Anxiety Stop: 08/27/19 17:16 Hydroxyzine HCl (Vistaril) 100 mg PO HS PRN PRN Reason: Sleep Stop: 08/27/19 17:21 Last Admin: 07/30/19 01:43 Dose: 100 mg Documented by: Lamotrigine (Lamictal) 100 mg PO HS PRAVEEN Stop: 08/27/19 20:59 Last Admin: 07/29/19 20:54 Dose: 100 mg Documented by: Magnesium Hydroxide (Milk Of Magnesia) 30 ml PO DAILY PRN PRN Reason: Constipation Stop: 08/27/19 17:16 Miscellaneous (Remove Nicoderm Patch) 1 ea N/A HS PRAVEEN Stop: 08/27/19 20:59 Last Admin: 07/29/19 20:54 Dose: Not Given Documented by: Nicotine (Nicoderm Cq) 14 mg TD QAM PRAVEEN Stop: 08/28/19 08:59 Last Admin: 07/29/19 10:23 Dose: Not Given Documented by: Nicotine Polacrilex (Nicorette 2mg) 1 piece MT PRN PRN PRN Reason: Nicotine Withdrawal Stop: 08/27/19 17:21 Last Admin: 07/29/19 10:24 Dose: 1 piece Documented by: Sodium Chloride ([place] Nasal) 1 - 2 sprays NA PRN PRN PRN Reason: Nasal Dryness/Congestion Stop: 08/27/19 17:16 Mental Health & Subst Abuse Tx Therapist Name of Therapist: Gurpreet Auguste Clergy Member Name of Clergy Member: Mita Fournier [facility] Post Discharge Appointments Primary Care Physician Name Of Family Doctor: Dr. Sidra Benedict CPT Code CPT Code 39421 (1) Depression Active/Remission status: currently active Depression Type: major depressive disorder Major depression episode severity: severe Major depression recurrence: recurrent Psychotic features: without psychotic features Qualified Code(s): F33.2 - Major depressive disorder, recurrent severe without psychotic features
[2019-07-30] MEDS: NICOTINE POLACRILEX 2 MG GUM MT PRN (09:01)
[2019-07-30] MEDS: CITALOPRAM 40 MG TAB PO SCH (09:02)
[2019-07-30] MEDS: NICOTINE 14 MG/24 HR PATCH TD SCH (09:02)
[2019-07-30] MEDS: lamoTRIgine 100 MG TAB PO SCH (21:10)
[2019-07-31] MEDS: CITALOPRAM 40 MG TAB PO SCH (09:05)
[2019-07-31] MEDS: NICOTINE 14 MG/24 HR PATCH TD SCH (09:06)
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
== END 2019-07-31 13:00 | disposition home or self-care (01) | DRG 883 ==
LOC: ED 13:39 → 3S 17:15

== ENCOUNTER 2019-09-07 04:13 | Inpatient (IN) ==
[2019-09-07] MEDS ORDERED: DIPHTHERIA/TETANUS/PERTUSSIS 0.5 ML SYR/VIAL IM ONE (04:43)
[2019-09-07 05:08] LABS: Basophils # (auto) 0.02 K/uL (0-0.2); Basophils % (auto) 0.2 %; Eosinophils # (auto) 0.04 K/uL (0-0.5); Eosinophils % (auto) 0.4 %; Hematocrit (blood only) 41.8 % (37-47); Immature Granulocytes # (auto) 0.02 K/uL (0.00-0.02); Immature Granulocytes % (auto) 0.2 %; Lymphocytes # (auto) 2.35 K/uL (1.2-3.4); Mean Corpuscular Hemoglobin 31.6 pg (25-34); Mean Corpuscular Hgb Conc 33.5 g/dL (32-36); Mean Corpuscular Volume 94.4 fL (80-100); Mean Platelet Volume 9.4 fL (7.4-10.4); Monocytes # (auto) 0.86 K/uL (0.11-0.59); Monocytes % (auto) 7.7 %; Neutrophils # (auto) 7.89 K/uL (1.4-6.5); Neutrophils % (auto) 70.5 %; Platelet Count 255 K/uL (130-400); RDW Coefficient of Variation 12.9 % (11.5-14.5); RDW Standard Deviation 44.6 fL (36.4-46.3); Red Blood Count 4.43 M/uL (4.2-5.4); White Blood Count 11.18 K/uL (4.8-10.8)
[2019-09-07 05:33] LABS: Alanine Aminotransferase 33 U/L (12-78); Albumin Level 4.2 gm/dl (3.4-5.0); Aspartate Aminotransferase 20 U/L (15-37); BUN Creatinine Ratio 19.4 (10-20); Blood Urea Nitrogen 17 mg/dl (7-18); Calcium 9.2 mg/dl (8.5-10.1); Carbon Dioxide 26 mmol/L (21-32); Chloride 108 mmol/L (98-107); Est GFR (African American) 109.6; Est GFR (Non-African American) 94.6; Glucose 95 mg/dl (70-99); Potassium 3.8 mmol/L (3.5-5.1); Sodium 139 mmol/L (136-145)
[2019-09-07 05:44] LABS: Albumin Globulin Ratio 1.2 (0.9-2); Alkaline Phosphatase 75 U/L (45-117); Bilirubin,Total 0.3 mg/dl (0.2-1); Globulin 3.5 gm/dl (2.5-4.0); Total Protein 7.7 gm/dl (6.4-8.2)
[2019-09-07 05:45] LABS: Pregnancy Test, Serum Negative (Negative)
[2019-09-07 05:47] LABS: Appearance Urine Cloudy (Clear); Bacteria Urine Automated 1+ (Negative); Bilirubin Urine Negative (Negative); Blood Urine 2+ (Negative); Cast Urine Automated 0 /lpf (0-5); Color Urine Yellow; Epithelial Cell Urine Auto >30 /lpf (0-5); Glucose Urine UA Negative (Negative); Ketones Urine Negative (Negative); Leukocyte Esterase Urine 1+ (Negative); Nitrite Urine Negative (Negative); Protein Urine Negative (Negative); RBC Urine Automated 0-4 /hpf (0-4); Specific Gravity Urine 1.022 (1.000-1.030); Urobilinogen Urine Negative (Negative); pH Urine 5.5 (4.5-7.5)
[2019-09-07 05:50] LABS: Acetaminophen < 2 ug/ml (10-30); Salicylate < 1.7 mg/dl (2.8-20)
[2019-09-07 06:04] LABS: Amphetamines+Metham, Urine Neg (Neg); Barbiturates, Urine Neg (Neg); Benzodiazepine, Urine Neg (Neg); Cocaine, Urine Neg (Neg); MDMA (Ecstacy), Urine Neg (Neg); Methadone, Urine Neg (Neg); Opiate, Urine Neg (Neg); Phencyclidine, Urine Neg (Neg)
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
--- NOTE | 2019-09-07 07:30 | Emergency Department Note ---
ED Visit Note Received patient in signout. History and physical verified by me. Pt accepted to [facility]. . : Depression Qualifiers: Depression Type: other depression Qualified Code(s): F32.89 - Other specified depressive episodes
[2019-09-07] MEDS ORDERED: ALUMINUM/MAGNESIUM SUSP 30 ML UDC PO PRN (08:43)
[2019-09-07] MEDS ORDERED: SODIUM CHLORIDE 0.65% NA SOLN 45 ML (OCEAN) PRN (08:43)
[2019-09-07] MEDS ORDERED: BISMUTH SUBSALICYLATE PER ML OMNICELL CHARGE PO PRN (08:43)
[2019-09-07] MEDS ORDERED: MAGNESIUM HYDROXIDE SUSP 30 ML UDC PO PRN (08:43)
[2019-09-07] MEDS ORDERED: CITALOPRAM 40 MG TAB PO SCH (09:00)
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
[2019-09-07] MEDS ORDERED: CITALOPRAM 20 MG TAB PO STA (13:16)
[2019-09-07] MEDS: lamoTRIgine 25 MG TAB PO SCH (21:09)
[2019-09-07] MEDS ORDERED: hydrOXYzine HCl 10 MG TAB PO SCH (22:00)
[2019-09-08] MEDS ORDERED: NON-FORMULARY PATIENT'S OWN MED IM SCH (09:00)
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
[2019-09-08] MEDS: CITALOPRAM 40 MG TAB PO SCH (09:41)
[2019-09-08] MEDS: lamoTRIgine 25 MG TAB PO SCH (21:06)
[2019-09-09] MEDS: CITALOPRAM 40 MG TAB PO SCH (09:35)
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
[2019-09-09] MEDS: lamoTRIgine 25 MG TAB PO SCH (21:10)
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
[2019-09-10] MEDS: CITALOPRAM 40 MG TAB PO SCH (10:06)
[2019-09-10] MEDS: lamoTRIgine 25 MG TAB PO SCH (21:30)
[2019-09-11] MEDS: ACETAMINOPHEN 325 MG TAB PO PRN (04:11)
[2019-09-11 07:45] LABS: BUN Creatinine Ratio 17.1 (10-20); Calcium 9.4 mg/dl (8.5-10.1); Creatinine Clr Calc Pharmacy 109.6 ml/min; Est GFR (Non-African American) 109.6; Potassium 3.9 mmol/L (3.5-5.1)
[2019-09-11] MEDS: CITALOPRAM 40 MG TAB PO SCH (08:26)
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
[2019-09-11] MEDS: lamoTRIgine 25 MG TAB PO SCH (21:17)
[2019-09-12] MEDS: NICOTINE POLACRILEX 2 MG GUM MT PRN (07:28)
[2019-09-12] MEDS: CITALOPRAM 40 MG TAB PO SCH (07:56)
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
[2019-09-12] MEDS: lamoTRIgine 25 MG TAB PO SCH (21:07)
[2019-09-13] MEDS: CITALOPRAM 40 MG TAB PO SCH (10:02)
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
[2019-09-13] MEDS: lamoTRIgine 25 MG TAB PO SCH (21:04)
[2019-09-14] MEDS: CITALOPRAM 40 MG TAB PO SCH (09:13)
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
[2019-09-14] MEDS: lamoTRIgine 25 MG TAB PO SCH (21:13)
[2019-09-15] MEDS: CITALOPRAM 40 MG TAB PO SCH (10:02)
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
[2019-09-15] MEDS: lamoTRIgine 25 MG TAB PO SCH (21:15)
[2019-09-16] MEDS: CITALOPRAM 40 MG TAB PO SCH (08:40)
[2019-09-16] MEDS: NICOTINE POLACRILEX 2 MG GUM MT PRN (11:09)
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
[2019-09-16] MEDS: lamoTRIgine 25 MG TAB PO SCH (22:20)
[2019-09-17] MEDS: CITALOPRAM 40 MG TAB PO SCH (08:29)
[2019-09-17] MEDS: NICOTINE POLACRILEX 2 MG GUM MT PRN (09:24)
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
[2019-09-17] MEDS: lamoTRIgine 25 MG TAB PO SCH (22:03)
[2019-09-18] MEDS: CITALOPRAM 40 MG TAB PO SCH (08:18)
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
[2019-09-18] MEDS: ACETAMINOPHEN 325 MG TAB PO PRN (09:49)
[2019-09-18] MEDS: lamoTRIgine 25 MG TAB PO SCH (21:05)
[2019-09-19] MEDS: CITALOPRAM 40 MG TAB PO SCH (09:15)
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
== END 2019-09-19 11:55 | disposition home or self-care (01) | DRG 885 ==
LOC: ED 04:13 → 3S 08:43

== ENCOUNTER 2021-08-10 19:33 | Inpatient (IN) ==
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
[2021-08-10 20:17] LABS: Appearance Urine Cloudy (Clear); Bacteria Urine Automated 2+ (Negative); Bilirubin Urine Negative (Negative); Blood Urine Negative (Negative); Color Urine Yellow; Epithelial Cell Urine Auto >30 /lpf (0-5); Glucose Urine UA Negative (Negative); Ketones Urine Negative (Negative); Leukocyte Esterase Urine Trace (Negative); Nitrite Urine Negative (Negative); Protein Urine 1+ (Negative); RBC Urine Automated 0-4 /hpf (0-4); Specific Gravity Urine 1.024 (1.000-1.030); Urobilinogen Urine Negative (Negative); pH Urine 6.5 (4.5-7.5)
[2021-08-10 20:23] LABS: Basophils # (auto) 0.03 K/uL (0-0.2); Basophils % (auto) 0.3 %; Eosinophils # (auto) 0.18 K/uL (0-0.5); Eosinophils % (auto) 1.9 %; Hematocrit (blood only) 41.4 % (37-47); Hemoglobin 13.9 g/dL (12.0-16.0); Immature Granulocytes # (auto) 0.03 K/uL (0.00-0.02); Immature Granulocytes % (auto) 0.3 %; Lymphocytes # (auto) 2.34 K/uL (1.2-3.4); Lymphocytes % (auto) 24.2 %; Mean Corpuscular Hemoglobin 31.7 pg (25-34); Mean Corpuscular Hgb Conc 33.6 g/dL (32-36); Mean Corpuscular Volume 94.3 fL (80-100); Mean Platelet Volume 9.6 fL (7.4-10.4); Monocytes # (auto) 0.75 K/uL (0.11-0.59); Monocytes % (auto) 7.8 %; Neutrophils # (auto) 6.33 K/uL (1.4-6.5); Neutrophils % (auto) 65.5 %; Platelet Count 251 K/uL (130-400); RDW Coefficient of Variation 11.9 % (11.5-14.5); Red Blood Count 4.39 M/uL (4.2-5.4); White Blood Count 9.66 K/uL (4.8-10.8)
[2021-08-10 20:45] LABS: Acetaminophen < 2 ug/ml (10-30); Salicylate 1.9 mg/dl (2.8-20)
[2021-08-10 20:51] LABS: Amphetamines+Metham, Urine Neg (Neg); Barbiturates, Urine Neg (Neg); Benzodiazepine, Urine Neg (Neg); Cocaine, Urine Neg (Neg); MDMA (Ecstacy), Urine Neg (Neg); Methadone, Urine Neg (Neg); Opiate, Urine Neg (Neg); Phencyclidine, Urine Neg (Neg)
[2021-08-10 20:58] LABS: Albumin Globulin Ratio 1.1 (0.9-2); Albumin Level 3.7 gm/dl (3.4-5.0); BUN Creatinine Ratio 18.6 (10-20); Bilirubin,Total 0.1 mg/dl (0.2-1); Calcium 8.7 mg/dl (8.5-10.1); Creatinine Clr Calc Pharmacy 96.6 ml/min; Est GFR (African American) 109.6 ml/min; Est GFR (Non-African American) 94.6 ml/min; Globulin 3.4 gm/dl (2.5-4.0); Potassium 3.7 mmol/L (3.5-5.1); Thyroid Stimulating Hormone 2.62 uIu/ml (0.300-4.500); Total Protein 7.1 gm/dl (6.4-8.2)
[2021-08-10 20:59] LABS: Pregnancy Test, Serum Negative (Negative)
[2021-08-10] MEDS ORDERED: OPTIRAY 320 100ml IV ONE (21:13)
[2021-08-11] MEDS ORDERED: ACETAMINOPHEN 325 MG TAB PO PRN (02:46)
[2021-08-11] MEDS ORDERED: ALUMINUM/MAGNESIUM SUSP 30 ML UDC PO PRN (02:46)
[2021-08-11] MEDS ORDERED: MAGNESIUM HYDROXIDE SUSP 30 ML UDC PO PRN (02:46)
[2021-08-11] MEDS ORDERED: SODIUM CHLORIDE 0.65% NA SOLN 45 ML (OCEAN) PRN (02:46)
[2021-08-11] MEDS ORDERED: BISMUTH SUBSALICYLATE LIQD 236 ML PO PRN (02:46)
[2021-08-11] MEDS ORDERED: hydrOXYzine HCl 25 MG TAB PO PRN ×2 (02:46)
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
--- NOTE | 2021-08-11 06:32 | Emergency Department Note ---
ED Visit Note This case was signed out to me at change of shift awaiting evaluation by staff from [facility] S. The patient was accepted on [facility]. as a voluntary admission .
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
[2021-08-11] MEDS ORDERED: busPIRone 15 MG TAB PO SCH (09:00)
[2021-08-11] MEDS ORDERED: lamoTRIgine 100 MG TAB PO SCH (09:00)
[2021-08-11] MEDS ORDERED: FLUARIX QUADRIVALENT 0.5 ML SYR IM ONE (09:00)
[2021-08-11] MEDS: CITALOPRAM 20 MG TAB PO SCH (10:16)
[2021-08-11] MEDS: busPIRone 15 MG TAB PO SCH (17:20)
[2021-08-11] MEDS: NICOTINE 14 MG/24 HR PATCH TD SCH (19:55)
--- NOTE | 2021-08-12 04:51 | Electrocardiogram Report ---
Test Reason : Blood Pressure : / mmHG Vent. Rate : 086 BPM Atrial Rate : 086 BPM P-R Int : 146 ms QRS Dur : 088 ms QT Int : 370 ms P-R-T Axes : 055 065 034 degrees QTc Int : 442 ms Normal sinus rhythm Normal ECG When compared with ECG of 07-SEP-2019 12:33, No significant change was found Confirmed by Zeke Umaña ([id number]) on 08/12/2021 4:51:21 AM Referred By: REFERRED SELF Confirmed By:Zeke Umaña
[2021-08-12] MEDS: busPIRone 15 MG TAB PO SCH ×2 (09:04→16:50)
[2021-08-12] MEDS: CITALOPRAM 20 MG TAB PO SCH (09:04)
[2021-08-12] MEDS: lamoTRIgine 25 MG TAB PO SCH (09:06)
[2021-08-12] MEDS: NICOTINE 14 MG/24 HR PATCH TD SCH (09:06)
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
[2021-08-12] MEDS ORDERED: NICOTINE POLACRILEX 2 MG GUM MT PRN (15:04)
[2021-08-12 20:21] LABS: Marijuana Quant, GCMS Urine 343 ng/mL (<5)
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
[2021-08-13] MEDS: busPIRone 15 MG TAB PO SCH ×2 (09:14→17:15)
[2021-08-13] MEDS: CITALOPRAM 20 MG TAB PO SCH (09:14)
[2021-08-13] MEDS: lamoTRIgine 25 MG TAB PO SCH (09:14)
[2021-08-13] MEDS: NICOTINE 14 MG/24 HR PATCH TD SCH (09:15)
[2021-08-13] MEDS ORDERED: FLUARIX QUADRIVALENT 0.5 ML SYR IM ONE (17:00)
[2021-08-13] MEDS: traZODone HCL 50 MG TAB PO SCH (21:47)
[2021-08-14] MEDS: CITALOPRAM 20 MG TAB PO SCH (08:50)
[2021-08-14] MEDS: busPIRone 15 MG TAB PO SCH ×2 (08:50→16:57)
[2021-08-14] MEDS: lamoTRIgine 25 MG TAB PO SCH (08:51)
[2021-08-14] MEDS: NICOTINE 14 MG/24 HR PATCH TD SCH (08:51)
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
[2021-08-14] MEDS: traZODone HCL 50 MG TAB PO SCH (20:35)
[2021-08-15] MEDS: NICOTINE 14 MG/24 HR PATCH TD SCH (09:23)
[2021-08-15] MEDS: busPIRone 15 MG TAB PO SCH ×2 (09:24→17:06)
[2021-08-15] MEDS: CITALOPRAM 20 MG TAB PO SCH (09:25)
[2021-08-15] MEDS: lamoTRIgine 25 MG TAB PO SCH (09:26)
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
[2021-08-15] MEDS: traZODone HCL 50 MG TAB PO SCH (20:05)
[2021-08-16] MEDS: busPIRone 15 MG TAB PO SCH ×2 (09:02→17:21)
[2021-08-16] MEDS: CITALOPRAM 20 MG TAB PO SCH (09:02)
[2021-08-16] MEDS: NICOTINE 14 MG/24 HR PATCH TD SCH (09:03)
[2021-08-16] MEDS: lamoTRIgine 25 MG TAB PO SCH (09:03)
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
[2021-08-16] MEDS: traZODone HCL 50 MG TAB PO SCH (20:57)
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
[2021-08-17] MEDS: busPIRone 15 MG TAB PO SCH (09:20)
[2021-08-17] MEDS: lamoTRIgine 25 MG TAB PO SCH (09:20)
[2021-08-17] MEDS: CITALOPRAM 20 MG TAB PO SCH (09:20)
[2021-08-17] MEDS: NICOTINE 14 MG/24 HR PATCH TD SCH (09:21)
[2021-08-27] MEDS ORDERED: VIVITROL IM SCH (09:00)
== END 2021-08-17 11:00 | disposition home or self-care (01) | DRG 882 ==
LOC: ED 19:33 → 3S 08-11 02:46